=== PATIENT | male | born 1965 | race African-American/Black ===

== ENCOUNTER 2016-05-23 18:33 | Emergency (ER) | payer BC ==
[2016-05-23] MEDS ORDERED: ACETAMINOPHEN 325 MG TABLET PO ONE (21:20)
[2016-05-23] MEDS ORDERED: AMOXICILLIN TRIHYDRATE 500 MG CAPSULE PO ONE (21:20)
[2016-05-23] MEDS ORDERED: IBUPROFEN 800 MG TABLET PO PRN (21:20)
--- NOTE | 2016-05-23 21:21 | ER Document Report ---
HPI - HPI Patient complains to provider of: sore throat since Saturday Onset: Other - Saturday Onset/Duration: Gradual Pain Level: 2 Context: 51-year-old male with persistent sore throat especially on the left side since Saturday. No fever. No cough. No nausea vomiting or diarrhea. It hurts to swallow. Associated Symptoms: None Exacerbated by: Other - Swallowing Relieved by: Denies Similar symptoms previously: No Recently seen / treated by doctor: No - ROS ROS below otherwise negative: Yes Systems Reviewed and Negative: Yes All other systems reviewed and negative - DERM Skin Color: Normal Past Medical History - General Information source: Patient - Social History Smoking Status: Never Smoker Frequency of alcohol use: None Drug Abuse: None Lives with: Family Family History: Reviewed & Not Pertinent - Past Medical History Cardiac Medical History: Reports: Hx Hypercholesterolemia, Hx Hypertension Endocrine Medical History: Reports: Hx Diabetes Mellitus Type 2 Renal/ Medical History: Denies: Hx Peritoneal Dialysis Past Surgical History: Reports: Hx Orthopedic Surgery - bilat knee - Immunizations Hx Diphtheria, Pertussis, Tetanus Vaccination: Yes Vertical Provider Document - CONSTITUTIONAL Agree With Documented VS: Yes - INFECTION CONTROL TRAVEL OUTSIDE OF THE [place] IN LAST 30 DAYS: No - HEENT HEENT: Normocephalic, Pharyngeal Erythema - exudative left tonsil, uvula midline , no celulitis. negative: Conjuctival Injection - No history of arthritis - NECK Neck: Supple, Lymphadenopathy-Left - anterior - RESPIRATORY Respiratory: Breath Sounds Normal, No Respiratory Distress O2 Sat by Pulse Oximetry: 95 - CARDIOVASCULAR Cardiovascular: Regular Rate, Regular Rhythm - GI/ABDOMEN Gastrointestinal: Abdomen Soft, Abdomen Non-Tender - MUSCULOSKELETAL/EXTREMETIES Musculoskeletal/Extremeties: KIM CAGE - NEURO Level of Consciousness: Awake, Alert - DERM Integumentary: Warm, Dry, No Rash Course - Vital Signs Vital signs: Temp Pulse Resp BP Pulse Ox 99.7 F 102 H 17 147/79 H 95 05/23/16 19:06 05/23/16 19:06 05/23/16 19:06 05/23/16 19:06 05/23/16 19:06 Discharge - Discharge Clinical Impression: left tonsillitis, Sore throat Condition: Good Disposition: HOME, SELF-CARE Instructions: Sore Throat ([facility]), Tonsillitis ([facility]), Anti-Inflammatory Medication ([facility]), Amoxicillin ([facility]) Additional Instructions: to er if worse finish the antibiotics motrin for pain drink plenty of fluids Please complete the patient satisfaction survey if you get one, and return it.. If you do not receive a survey, then you can go to the [facility] website, [email or web address] and place your comments about your very good care. Thank you very much. It was a pleasure being your medical provider today. Prescriptions: Amoxicillin Trihydrate [Amoxil 500 mg Capsule] 1,000 mg PO BID #30 cap Prednisone [Deltasone 10 mg Tablet] 10 mg PO ASDIR PRN #15 tablet PRN Reason: Forms: Return to Work
[2016-05-23] MEDS ORDERED: HYDROCODONE/ACETAMINOPHEN 5-325 MG 6 TAB/DSPK PO PRN (21:23)
[2016-05-23] MEDS ORDERED: PREDNISONE 20 MG TABLET PO ONE (21:27)
[2016-05-24 03:24] VITALS: BP 121/71
== END 2016-05-23 22:07 | disposition home or self-care (01) ==
LOC: ER 18:33
DX: J03.90 Acute tonsillitis, unspecified (principal); J02.9 Acute pharyngitis, unspecified
CPT/HCPCS: 99282; J7512

== ENCOUNTER 2016-08-25 07:10 | Inpatient (IN) | payer BC ==
[2016-08-25] MEDS ORDERED: NORMAL SALINE 1000 ML 1,000 ML IV ONE ×2 (07:43→08:32)
[2016-08-25 08:03] LABS: HEMATOCRIT 36.2 % (37.9-51.0); HEMOGLOBIN 11.5 g/dL (13.5-17.0); HGB HCT DIFFERENCE -1.7; MEAN CORPUSCULAR HEMOGLOBIN 29.4 pg (27.0-33.4); MEAN CORPUSCULAR HGB CONC 31.6 g/dL (32.0-36.0); MEAN CORPUSCULAR VOLUME 93 fl (80-97); RED CELL DISTRIBUTION WIDTH 13.3 % (11.5-14.0); WHITE BLOOD COUNT 22.5 10^3/uL (4.0-10.5)
[2016-08-25 08:18] LABS: ALANINE AMINOTRANSFERASE 35 U/L (21-72); ALBUMIN 3.5 g/dL (3.5-5.0); ALKALINE PHOSPHATASE 121 U/L (38-126); ASPARTATE AMINO TRANSFERASE 15 U/L (17-59); BILIRUBIN,DIRECT 0.5 mg/dL (0.0-0.4); BILIRUBIN,TOTAL 1.2 mg/dL (0.2-1.3); BLOOD UREA NITROGEN 26 mg/dL (7-20); CHLORIDE 94 mmol/L (98-107); CREATININE RESULT 1.47 mg/dL (0.52-1.25); MAGNESIUM 2.6 mg/dL (1.6-2.3); POTASSIUM 4.6 mmol/L (3.6-5.0); TOTAL PROTEIN 7.1 g/dL (6.3-8.2)
[2016-08-25 08:25] LABS: BAND NEUTROPHILS % (MANUAL) 5 % (3-5); BASOPHILS % (MANUAL) 0 % (0-2); EOSINOPHILS % (MANUAL) 0 % (0-6); LYMPHOCYTES % (MANUAL) 7 % (13-45); TOTAL CELLS COUNTED 100
[2016-08-25 08:26] LABS: RBC MORPHOLOGY COMMENT NORMO-CYTIC/CHROMIC
[2016-08-25 08:27] LABS: CARBON DIOXIDE 11 mmol/L (22-30); GLUCOSE 482 mg/dL (75-110); SODIUM 133.4 mmol/L (137-145)
[2016-08-25 08:28] LABS: ANION GAP 28 (5-19)
[2016-08-25] MEDS ORDERED: INSULIN REG, HUMAN 100 UNIT/ML 3 ML VIAL (PYX) IV ONE (08:32)
[2016-08-25] MEDS ORDERED: PIPERACILLIN/TAZOBACTAM 3.375 GM VIAL IV ONE (08:33)
--- NOTE | 2016-08-25 08:53 | ER Document Report ---
ED General <SUDHEER BEDOLLA - Last Filed: 08/25/16 09:27> - General Mode of Arrival: Ambulatory Information source: Patient TRAVEL OUTSIDE OF THE [place] IN LAST 30 DAYS: No - HPI Onset: Other - Refer to HPI notes <MAILEWILFREDGLENIS - Last Filed: 08/25/16 09:54> - General Chief Complaint: Abdominal Pain Stated Complaint: ABDOMINAL PAIN Time Seen by Provider: 08/25/16 07:37 Notes: Patient is a 51 year old male presenting to the emergency department for abdominal pain and constipation x1 week. Patient has an open actively draining abscess to his right lower abdominal pannus. Patient has been putting hydrocortisone cream on this area with gauze covering. Patient states the abscess has been present for about 1 week and is where most of his pain is coming from. Patient states he has an appointment with his PCP, [facility] in [place], on Saturday but he could not wait because of his pain. Patient has type II diabetes mellitus and takes 500 mg metformin x2 per day. Patinet states he does not check his blood glucose levels. Patient also has hypertension for which he takes 20 mg Lisinopril and 25 mg Hydrochlorothiazide and hypercholesterolemia and patient takes 10 mg Atorvastatin for this. Patient also takes aleve for his pain. Patient has had some increased thirst and has not been eating much food lately. Patient's blood glucose level was 449 upon arrival to the ED. Patient has no known drug allergies. (GLENIS GR) - Related Data Allergies/Adverse Reactions: No Known Allergies Allergy (Verified 08/25/16 07:17) Past Medical History - General Information source: Patient - Social History Smoking Status: Never Smoker Cigarette use (# per day): No Chew tobacco use (# tins/day): No Frequency of alcohol use: Rare Drug Abuse: None Family History: None Patient has suicidal ideation: No Patient has homicidal ideation: No - Past Medical History Cardiac Medical History: Reports: Hx Hypercholesterolemia, Hx Hypertension Endocrine Medical History: Reports: Hx Diabetes Mellitus Type 2 - 500 mg of metformin Past Surgical History: Reports: Hx Orthopedic Surgery - bilat knee - Immunizations Hx Diphtheria, Pertussis, Tetanus Vaccination: Yes <GLENIS GR - Last Filed: 08/25/16 09:54> Review of Systems - Review of Systems Constitutional: No symptoms reported EENT: No symptoms reported Cardiovascular: No symptoms reported Respiratory: No symptoms reported Gastrointestinal: See HPI, Abdominal pain, Constipation, Poor appetite, Last bowel movement - over 1 week ago, Other - increased thirst. denies: Poor fluid intake Genitourinary: No symptoms reported Male Genitourinary: No symptoms reported Musculoskeletal: No symptoms reported Skin: No symptoms reported Hematologic/Lymphatic: No symptoms reported Neurological/Psychological: No symptoms reported -: Yes All other systems reviewed and negative <GLENIS GR - Last Filed: 08/25/16 09:54> Physical Exam <GRAEMESUDHEER - Last Filed: 08/25/16 09:27> - Vital signs Interpretation: Hypertensive, Tachycardic <GLENIS GR - Last Filed: 08/25/16 09:54> - Vital signs Vitals: Temp Pulse Resp BP Pulse Ox 98.5 F 129 H 22 H 142/84 H 98 08/25/16 07:16 08/25/16 07:16 08/25/16 07:16 08/25/16 07:16 08/25/16 07:16 - Notes Notes: GENERAL: Alert, interacts well. No acute distress. HEAD: Normocephalic, atraumatic. EYES: Appear normal. Pupils equal, round, and reactive to light. ENT: Dry mucus membranes, tongue midline. NECK: Full range of motion. Supple. Trachea midline. LUNGS: Clear to auscultation bilaterally, no wheezes, rales, or rhonchi. No respiratory distress. HEART: Tachycardia. Regular rhythm. No murmurs, gallops, or rubs. ABDOMEN: Morbidly obese. There is an indurated mass in the RLQ abdominal pannus , it has a round 3 cm defect/sore to the skin of this region on the right side which is actively draining. Non-distended. Normal bowel sounds. EXTREMITIES: Moves all 4 extremities spontaneously. Normal strength. No edema. NEUROLOGICAL: Alert and oriented x3. Normal speech. No focal neurological deficits. GSC 15. PSYCH: Normal affect, normal mood. SKIN: Warm, dry, normal turgor. No rashes or lesions noted. (GLENIS GR) Course - Laboratory Result Diagrams: 08/25/16 07:49 08/25/16 07:49 - EKG Interpretation by Dc EKG shows normal: Sinus rhythm, [place], QRS Complexes. abnormal: Intervals - Borderline prolonged QT interval, ST-T Waves - Borderline T abnormalities Rate: Tachycardia - 109 Rhythm: PVC's When compared to previous EKG there are: Previous EKG unavailable - Consults [place] Time consulted: 09:05 Consulted provider: will come to ER <SUDHEER BEDOLLA - Last Filed: 08/25/16 09:27> - Laboratory Result Diagrams: 08/25/16 07:49 08/25/16 07:49 <GLENIS GR - Last Filed: 08/25/16 09:54> - Vital Signs Vital signs: Temp Pulse Resp BP Pulse Ox 98.5 F 129 H 11 L 112/62 98 08/25/16 07:16 08/25/16 07:16 08/25/16 09:01 08/25/16 09:01 08/25/16 09:01 - Laboratory Laboratory results interpreted by me: 08/25/16 08/25/16 08/25/16 07:49 07:49 07:49 WBC 22.5 H RBC 3.90 L Hgb 11.5 L Hct 36.2 L MCHC 31.6 L Lymphocytes % (Manual) 7 L Metamyelocytes % 1 H Abs Neuts (Manual) 18.5 H Abs Monocytes (Manual) 2.5 H Sodium 133.4 L Chloride 94 L Carbon Dioxide 11 L Anion Gap 28 H BUN 26 H Creatinine 1.47 H Est GFR (Non-Af Amer) 51 L Glucose 482 H* POC Glucose Hemoglobin A1c % > 14.0 H Magnesium 2.6 H Direct Bilirubin 0.5 H AST 15 L 08/25/16 08:59 WBC RBC Hgb Hct MCHC Lymphocytes % (Manual) Metamyelocytes % Abs Neuts (Manual) Abs Monocytes (Manual) Sodium Chloride Carbon Dioxide Anion Gap BUN Creatinine Est GFR (Non-Af Amer) Glucose POC Glucose 377 H Hemoglobin A1c % Magnesium Direct Bilirubin AST Critical Care Note - Critical Care Note Total time excluding time spent on procedures (mins): 30 <SUDHEER BEDOLLA - Last Filed: 08/25/16 09:27> Discharge - Discharge Admitting Provider: Hospitalist Unit Admitted: IMCU <SUDHEER BEDOLLA - Last Filed: 08/25/16 09:27> <GLENIS GR - Last Filed: 08/25/16 09:54> - Discharge Clinical Impression: Poorly controlled diabetes mellitus, Abdominal wall abscess Diabetic ketoacidosis Qualifiers: Diabetes mellitus type: type 2 Diabetes mellitus complication detail: without coma Qualified Code(s): E13.10 - Other specified diabetes mellitus with ketoacidosis without coma Hyperglycemia due to type 2 diabetes mellitus Qualifiers: Diabetes mellitus intermission coordinator insulin use: without longterm use Qualified Code(s ): E11.65 - Type 2 diabetes mellitus with hyperglycemia Leukocytosis Qualifiers: Leukocytosis type: bandemia Qualified Code(s): D72.825 - Bandemia Scribe Attestation: 08/25/16 09:10 I personally performed the services described in the documentation, reviewed and edited the documentation which was dictated to the scribe in my presence, and it accurately records my words and actions. (SUDHEER BEDOLLA) Scribe Documentation - Scribe Written by Scribe:: Rubens Tay, 08/25/2016 9:15 acting as scribe for :: Graeme <GLENIS GR - Last Filed: 08/25/16 09:54>
[2016-08-25] MEDS ORDERED: NORMAL SALINE 1000 ML 1,000 ML IV PRN ×3 (09:16→20:42)
[2016-08-25] MEDS ORDERED: DEXTROSE 50%-WATER 25 GM/50 ML DISP.SYRIN IV PRN ×2 (09:19)
[2016-08-25] MEDS ORDERED: DEXTROSE 40% GEL 15 GM TUBE PO PRN ×2 (09:19)
[2016-08-25] MEDS ORDERED: GLUCAGON,HUMAN RECOMB 1 MG INJ IM PRN (09:19)
[2016-08-25] MEDS: ENOXAPARIN SODIUM INJ 40 MG/0.4 ML DISP.SYRIN SUBCUT SCH (09:57)
--- NOTE | 2016-08-25 10:14 | EKG REPORT ---
SEVERITY:- ABNORMAL ECG - SINUS TACHYCARDIA VENTRICULAR PREMATURE COMPLEX BORDERLINE T WAVE ABNORMALITIES BORDERLINE PROLONGED QT INTERVAL : Confirmed by: Dominik Felipe MD 25-Aug-2016 10:13:51
[2016-08-25 11:36] LABS: APPEARANCE,URINE SLIGHTLY-CLOUDY; BILIRUBIN,URINE NEGATIVE (NEGATIVE); GLUCOSE, URINE >=500 mg/dL (NEGATIVE); KETONES,URINE 80 mg/dL (NEGATIVE); LEUKOCYTE ESTERASE,URINE MODERATE (NEGATIVE); NITRITE,URINE NEGATIVE (NEGATIVE); PROTEIN,URINE NEGATIVE (NEGATIVE); URINE SPECIFIC GRAVITY 1.025; UROBILINOGEN,URINE NEGATIVE mg/dL (<2.0)
[2016-08-25] MEDS ORDERED: NORMAL SALINE 100 ML with INSULIN REGULAR, HUMAN 100 UNIT IV PRN ×2 (12:24)
[2016-08-25] MEDS ORDERED: MORPHINE SULFATE 10 MG/ML INJ IV ONE (13:00)
[2016-08-25 13:24] LABS: BLOOD UREA NITROGEN 23 mg/dL (7-20); CALCIUM 8.8 mg/dL (8.4-10.2); CARBON DIOXIDE 18 mmol/L (22-30); CHLORIDE 98 mmol/L (98-107); CREATININE RESULT 1.29 mg/dL (0.52-1.25); GLUCOSE 308 mg/dL (75-110); POTASSIUM 4.8 mmol/L (3.6-5.0)
[2016-08-25 13:31] LABS: SODIUM 135.7 mmol/L (137-145)
[2016-08-25 13:32] LABS: ANION GAP 20 (5-19)
[2016-08-25] MEDS ORDERED: DEXTROSE 5%-NORMAL SALINE 1,000 ML IV PRN ×3 (14:42→16:41)
[2016-08-25 16:31] LABS: ANION GAP 15 (5-19); BLOOD UREA NITROGEN 21 mg/dL (7-20); CALCIUM 8.5 mg/dL (8.4-10.2); CARBON DIOXIDE 23 mmol/L (22-30); CHLORIDE 101 mmol/L (98-107); CREATININE RESULT 1.18 mg/dL (0.52-1.25); GLUCOSE 225 mg/dL (75-110); POTASSIUM 4.5 mmol/L (3.6-5.0); SODIUM 139.4 mmol/L (137-145)
[2016-08-25] MEDS: MORPHINE SULFATE 10 MG/ML INJ IV PRN ×2 (16:33→23:33)
--- NOTE | 2016-08-25 16:33 | HISTORY AND PHYSICAL E ---
History and Physical NAME: XUAN BYERS : 1965 AGE: 51Y ADMITTED: 08/25/2016 ROOM: 320 CODE STATUS: FULL CODE. PRIMARY CARE PROVIDER: [facility]. CHIEF COMPLAINT: Abdominal pain. HISTORY OF PRESENT ILLNESS: The patient is a 51-year-old male with a past medical history of diabetes mellitus type 2. The patient presents to the emergency department with a chief complaint of abdominal pain and constipation x1 week. The patient has an actively draining abscess to the right lower abdominal pannus. The patient had been putting hydrocortisone cream on the area and covering it with gauze. The patient states that the abscess has been present for about a week and it is where most of his pain is coming from. The patient had an appointment with his primary care provider at [facility] in [place] on Saturday, but he could not wait because of the pain. The patient takes metformin 500 mg x2 daily. The patient admits that he should be on insulin, but does not take this. The patient states that he does not check his blood sugars either. The patient thinks that his last A1c was approximately a year ago. The patient has hypertension and states that he is compliant with his medications. At the time of presentation to the emergency department, the patient was found to have a glucose of almost 500 with potassium of 4.6, sodium 133. The patient did have a gap of 28 and A1c of greater than 14. Given these findings, the patient was referred to the hospitalists for admission and management. PAST MEDICAL HISTORY: Remarkable for: 1. Diabetes mellitus type 2. 2. Morbid obesity with BMI of 46. 3. Hypertension. 4. Hyperlipidemia. PAST SURGICAL HISTORY: Includes bilateral knee surgery. ALLERGIES: No known drug allergies. HOME MEDICATIONS: Metformin 500 mg p.o. b.i.d. SOCIAL HISTORY: The patient currently resides at home. He denies any history of tobacco use. No history of alcohol abuse or illicit drug use. 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 The patient's surrogate decision maker is his who can be reached at [phone]. FAMILY MEDICAL HISTORY: The patient's father is . He had an NM as well a diabetes. The patient's mother is alive; however, she suffers with dementia. The patient has 8 siblings, all of them have multiple medical problems and he is unable to recall. The patient has a daughter who is healthy. REVIEW OF SYSTEMS: CONSTITUTIONAL: The patient denies any dizziness, weakness, lysis of adhesions. Positive for sensations of fevers, chills. INTEGUMENTARY: The patient denies any diaphoresis, rashes, bruising, itching. HEENT: Denies any visual changes, nasal drainage, sore throat, headache. CARDIOVASCULAR: Denies any chest pain, edema or heart palpitations. RESPIRATORY: Denies any shortness of breath, cough, sputum production or hemoptysis. GASTROINTESTINAL: Denies any nausea, vomiting, diarrhea, hematemesis, melena, hematochezia. Positive for constipation and abdominal wall pain. GENITOURINARY: Denies any hematuria, pyuria or dysuria. MUSCULOSKELETAL: Denies any acute on chronic joint pains. NEUROLOGICAL: Denies any seizures, tremors, loss of consciousness. HEMATOLOGIC: Denies any joanna bleeding, easy bruising. ENDOCRINE: Denies any recent weight changes. The patient does not check his glucose. PSYCHIATRIC: Denies suicidal or homicidal ideations. The rest of the review of the other organ systems is negative. PHYSICAL EXAMINATION: GENERAL: On examination, the patient is a well developed, morbidly obese, 51-year-old male who is awake, alert and oriented to person, place, time and situation. He is verbal, conversational, and does not appear to be in acute distress. VITAL SIGNS: As follows: Temperature 99.5, pulse 111, respirations 12, blood pressure 132/70, oxygen saturation 98% on room air. SKIN: Warm and dry. No rash. Not diaphoretic. HEENT: Pupils equal, round and reactive to light and accommodation. Conjunctivae pink. Sclerae are anicteric. No mouth lesions. Tongue is midline. NECK: Supple. No significant elevated. No palpable lymphadenopathy or thyromegaly. CARDIOVASCULAR SYSTEM: Heart is regular. There is no murmur or rub. CHEST: Clear, symmetrical and unlabored. ABDOMEN: Soft, nontender, nondistended. Left lower quadrant abscess is draining foul purulent drainage. No organomegaly. BACK: No CVA tenderness, sacral edema. EXTREMITIES: No clubbing, cyanosis, or edema or peripheral signs of embolization. Pedal pulses +1 noted bilaterally. PSYCHIATRIC: Appropriate affect, pleasant mood. DIAGNOSTICS: 1. Laboratory values are as follows: a. Hematology obtained on 08/25/2016: WBCs 22.5, hemoglobin 11.5, hematocrit 36.2, platelet count 301,000. b. Chemistry obtained on 08/25/2016: Sodium 133, potassium 4.6, chloride 94, carbon dioxide 11, BUN 26, creatinine 1.47, glucose 582. A1c is 14. Calcium 9.0, magnesium 2.6, bilirubin 1.2, direct bilirubin 0.5, AST 15, ALT 35, alkaline phosphatase 121, total protein , albumin 3.5. c. Urinalysis obtained on 08/25/2016: Color is yellow, appearance slightly cloudy, pH 5.2, specific gravity of 1.025, protein negative, glucose greater than 500, ketones 80, occult blood small, nitrite negative, bilirubin negative, urobilinogen negative, leukocyte esterase moderate, WBCs 21, RBCs 10, epithelial squamous cells less than 1, mucus rare, ascorbic acid is negative. 2. Microbiology: a. Blood cultures obtained on 08/25/2016 are pending. b. Urine culture obtained on 08/25/2016 pending. 3. EKG obtained on 08/25/2016 reveals sinus tachycardia with PVC. IMPRESSION AND PLAN: 1. Hyperosmolar hyperglycemic state. The patient has received 2 liters of saline in the emergency department. Will bolus another liter and continue to aggressively hydrate. Will repeat chemistries at noon and according to findings, will continue from there. Will start the patient on an insulin drip and follow. 2. Abdominal wall abscess. Will cover with Zosyn for now and await surgical input. 3. Morbid obesity. Will encourage weight reduction. 4. Hypertension. The patient does give a history of hypertension; however, he is not on any chronic medications. Blood pressures are in acceptable range at this time. Will just continue to monitor these for now. 5. Sepsis present on admission secondary to the above. The patient's white count as 22,0000, the patient is tachycardic with low-grade temperature. Again have added antibiotic coverage. Will monitor closely. 6. Uncontrolled diabetes mellitus type 2. is greater than 400. Will proceed with education. The patient will continue metformin after discharge, but will need to be discharged on insulin. 7. DVT prophylaxis. Will add subcutaneous Lovenox. DISPOSITION: The patient is a FULL CODE. Pending the patient's symptomatology and diagnostic findings, will re-evaluate as needed. The patient will be admitted to inpatient IMCU as the patient's suspected length of stay will surpass 2 midnights. TIME SPENT: Time spent on this admission including assessment, plan, physical examination, patient education and family meeting was 40 minutes. DICTATING PHYSICIAN: FIDE MORALES NP [id number] PHY#: [id number] ID: [id number] JOB#: [id number] ACCT: [id number] cc:VAMSHI CORONEL > LAUREN
[2016-08-25] MEDS ORDERED: INSULIN GLARGINE,HUM.REC.ANLOG 1,000 UNIT/10 ML UNIT SUBCUT ONE ×2 (16:38→21:50)
[2016-08-25] MEDS ORDERED: VANCOMYCIN HCL INJ 1000 MG VIAL IV PRN (16:49)
[2016-08-25] MEDS ORDERED: VANCOMYCIN HCL 500 MG in DEXTROSE 5%-WATER 100 ML IV ONE (17:00)
--- NOTE | 2016-08-25 17:29 | CONSULTATION REPORT E ---
Consultation Report NAME: XUAN BYERS : 1965 AGE: 51Y DATE: 08/25/2016 320 A TO: PAZ PENALOZA M.D. FROM: VAMSHI CORONEL Requesting Physician REASON FOR CONSULTATION: Patient with abdominal wall pain with ulceration along the right lower abdominal wall right at the pannus area. HISTORY OF PRESENT ILLNESS: This is a 51-year-old male with a history of type 2 diabetes on metformin 500 mg twice a day; hypertension for which he takes lisinopril 20 mg a day and 25 mg of hydrochlorothiazide; hypercholesterolemia and takes 10 mg of atorvastatin daily. Noted to have abdominal pains and constipation for the past week. This area on the right abdominal wall then started draining purulent material and the patient has been putting hydrocortisone cream on this area with gauze covering. He was then admitted where his blood sugar was noted to be 449. The patient also has been increasingly thirsty and eat much food recently. ALLERGIES: No known. PAST MEDICAL HISTORY: As in HPI, positive for: 1. Diabetes type 2 on 500 mg metformin twice a day. 2. History of hypertension and takes lisinopril. 3. Hyperlipidemia, he takes atorvastatin. 4. History of knee surgeries in the past. SOCIAL HISTORY: Never smoked. Rare use of alcohol. Denies drug abuse. REVIEW OF SYSTEMS: GASTROINTESTINAL: As per HPI. CONSTITUTIONAL: No fever or chills. ENT: No symptoms reported. CARDIOVASCULAR: No chest pains. RESPIRATORY: No shortness of breath. GENITOURINARY: No dysuria. MUSCULOSKELETAL: No symptoms reported. SKIN: Pain on the abdominal wall on the right side. HEMATOLOGIC: No symptoms reported. NEUROLOGICAL: No symptoms reported. All other systems reviewed and are negative. FAMILY HISTORY: Strong for diabetes in that both parents are diabetic. PHYSICAL EXAMINATION: VITAL SIGNS: Height about 5 feet 9 inches, and weighs over 380 pounds. GENERAL: The patient is awake, alert and oriented, complaining of right abdominal wall pains. HEENT/NECK: Neck is supple. No thyromegaly. LUNGS: Clear. HEART: Tachycardic. ABDOMEN: Morbidly obese. There is a 4 x 3-cm quite superficial ulceration on the abdominal wall pannus on the right lower abdominal area. There is also an induration that is with reddish skin discoloration just lateral to the ulcer and very tender. EXTREMITIES: No edema. IMPRESSION: 1. Ulcer of the right abdominal wall. 2. Cellulitis with possible starting abscess. PLAN: 1. Sharp debridement of the ulcer at bedside was done. Some spent for C and S was sent. 2. CT scan of the abdominal wall to check on whether a collection that needed to be evacuated today or tomorrow. 3. Start him on IV vancomycin 2 g for suspicion for MRSA and the patient has been ordered ampicillin and I would think that vancomycin would be more appropriate antibiotic for this patient at this time. 4. Nystatin powder was ordered around the area of the pannus to prevent ulceration and then a wet-to-dry dressings on the ulcer site twice a day was ordered. 5. Will keep him n.p.o. just in case he needs to be taken to the OR tonight. ADDENDUM: His white count is up to 22,500, hemoglobin 11.5. His glucose at 1200 hours was 308 from 482 on admission early this morning at 0400 hours. We also ordered lactic acid/sepsis protocol workup. Will continue him on D5 normal saline at 200 mL/h and will increase the fluids if the lactic acid is elevated. DICTATING PHYSICIAN: PAZ PENALOZA M.D. [id number] PHY#: [id number] ID: [id number] JOB#: [id number] ACCT: [id number] cc:PAZ PENALOZA M.D. >
--- NOTE | 2016-08-25 17:38 | OPERATIVE REPORT E ---
Operative Report NAME: XUAN BYERS : 1965 AGE: 51Y DATE OF SURGERY: 08/25/2016 ROOM: 320 PREOPERATIVE DIAGNOSIS: ABOUT 2 X 4-CM ULCERATION ALONG THE RIGHT LOWER ABDOMINAL WALL PANNUS WITH SOME NECROTIC TISSUE. POSTOPERATIVE DIAGNOSIS: ABOUT 2 X 4-CM ULCERATION ALONG THE RIGHT LOWER ABDOMINAL WALL PANNUS WITH SOME NECROTIC TISSUE. OPERATION: Sharp debridement of ulceration along the right lower abdominal wall pannus with necrotic tissue. SURGEON: PAZ PENALOZA M.D. INDICATION: This is a 51-year-old male admitted for pains along the right abdominal wall where the ulcer was noted about a week ago. This was also noted to have some induration lateral to it with some redness and severe tenderness. DESCRIPTION OF PROCEDURE: The necrotic tissue on the ulcer was debrided sharply. Specimens were sent for C and S. The wound was subsequently cleansed with saline and wound irrigation. A wet-to-dry saline dressing was placed. The patient tolerated the procedure well. Incidentally, the patient is going to have a CAT scan of the abdominal wall to see if there is any collection that may need to be drained as soon as possible. The patient is admitted for sepsis with DKA. DICTATING PHYSICIAN: PAZ PENALOZA M.D. [id number] PHY#: [id number] ID: [id number] JOB#: [id number] ACCT: [id number] cc:PAZ PENALOZA M.D. >
--- NOTE | 2016-08-25 17:42 | RADIOLOGY REPORT (SQ) ---
EXAM DESCRIPTION: CT ABD/PELVIS NO ORAL OR IV COMPLETED DATE/TIME: 08/25/2016 5:23 pm REASON FOR STUDY: RULE OUT ABSCESS COMPARISON: None. TECHNIQUE: CT scan of the abdomen and pelvis performed without intravenous or oral contrast. Images reviewed with lung, soft tissue, and bone windows. Reconstructed coronal and sagittal MPR images revi ewed. All images stored on PACS. All CT scanners at this facility use dose modulation, iterative reconstruction, and/or weight based d osing when appropriate to reduce radiation dose to as low as reasonably achievable (ALARA). [facility]: Dose Right [facility]: CareDose [facility]: Dose Right [facility]: Teradose 4D [facility]: Smart [employer] RADIATION DOSE: Up-to-date CT equipment and radiation dose reduction techniques were employed. CTDIv ol: 30.0 mGy. DLP: 1834 mGy-cm.mGy. LIMITATIONS: None. FINDINGS: LOWER CHEST: No significant findings. No nodules or infiltrates. NON-CONTRASTED LIVER, SPLEEN, ADRENALS: Evaluation limited by lack of IV contrast. No identified sign ificant masses. PANCREAS: No masses. No peripancreatic inflammatory changes. GALLBLADDER: No identified stones by CT criteria. No inflammatory changes to suggest cholecystitis. RIGHT KIDNEY AND URETER: No suspicious masses. Assessment limited by lack of IV contrast. No signif icant calcifications. No hydronephrosis or hydroureter. LEFT KIDNEY AND URETER: No suspicious masses. Assessment limited by lack of IV contrast. No signifi cant calcifications. No hydronephrosis or hydroureter. AORTA AND RETROPERITONEUM: No aneurysm. No retroperitoneal masses or adenopathy. BOWEL AND PERITONEAL CAVITY: No obvious masses or inflammatory changes. No free fluid. APPENDIX: Normal. PELVIS, BLADDER, AND ABDOMINAL WALL:No abnormal masses. No free fluid. Bladder normal. BONES: No significant findings. OTHER: No other significant finding. IMPRESSION: NO SIGNIFICANT OR ACUTE PROCESS IN THE ABDOMEN OR PELVIS. TECHNICAL DOCUMENTATION: JOB ID: [id number] Quality ID # [id number]: Final reports with documentation of one or more dose reduction techniques (e.g., Au tomated exposure control, adjustment of the mA and/or kV according to patient size, use of iterative reconstruction technique) 2010 [employer]- All Rights Reserved
[2016-08-25] MEDS ORDERED: VANCOMYCIN HCL INJ 1000 MG VIAL ONE (18:12)
[2016-08-25] MEDS: AMPICILLIN SODIUM/SULBACTAM NA 3 GM in NORMAL SALINE 100 ML IV SCH ×2 (19:02→23:32)
[2016-08-25] MEDS: NYSTATIN TOPICAL POWDER 15 GM TP SCH (19:03)
[2016-08-25] MEDS ORDERED: VANCOMYCIN HCL 2,000 MG in NORMAL SALINE 500 ML IV ONE (20:15)
[2016-08-25] MEDS ORDERED: VANCOMYCIN HCL 2,000 MG in DEXTROSE 5%-WATER 500 ML IV ONE (20:15)
[2016-08-25] MEDS: INSULIN LISPRO 100 UNIT/ML 3 ML VIAL SUBCUT PRN (21:58)
[2016-08-26] MEDS: AMPICILLIN SODIUM/SULBACTAM NA 3 GM in NORMAL SALINE 100 ML IV SCH ×3 (05:21→17:08)
[2016-08-26 05:28] LABS: ALANINE AMINOTRANSFERASE 28 U/L (21-72); ALBUMIN 2.7 g/dL (3.5-5.0); ALKALINE PHOSPHATASE 87 U/L (38-126); ANION GAP 18 (5-19); ASPARTATE AMINO TRANSFERASE 13 U/L (17-59); BILIRUBIN,DIRECT 0.6 mg/dL (0.0-0.4); BILIRUBIN,TOTAL 1.4 mg/dL (0.2-1.3); BLOOD UREA NITROGEN 18 mg/dL (7-20); CALCIUM 8.4 mg/dL (8.4-10.2); CARBON DIOXIDE 15 mmol/L (22-30); CHLORIDE 105 mmol/L (98-107); CREATININE RESULT 1.05 mg/dL (0.52-1.25); GLUCOSE 274 mg/dL (75-110); MAGNESIUM 2.5 mg/dL (1.6-2.3); POTASSIUM 4.7 mmol/L (3.6-5.0); SODIUM 137.8 mmol/L (137-145); TOTAL PROTEIN 5.9 g/dL (6.3-8.2)
[2016-08-26 05:46] LABS: HEMATOCRIT 31.3 % (37.9-51.0); HEMOGLOBIN 9.8 g/dL (13.5-17.0); HGB HCT DIFFERENCE -1.9; MEAN CORPUSCULAR HEMOGLOBIN 29.3 pg (27.0-33.4); MEAN CORPUSCULAR HGB CONC 31.5 g/dL (32.0-36.0); MEAN CORPUSCULAR VOLUME 93 fl (80-97); RED BLOOD COUNT 3.36 10^6/uL (4.35-5.55); RED CELL DISTRIBUTION WIDTH 13.4 % (11.5-14.0)
[2016-08-26] MEDS: ENOXAPARIN SODIUM INJ 40 MG/0.4 ML DISP.SYRIN SUBCUT SCH (09:50)
[2016-08-26] MEDS: NYSTATIN TOPICAL POWDER 15 GM TP SCH ×2 (10:58→17:12)
[2016-08-26] MEDS: INSULIN LISPRO 100 UNIT/ML 3 ML VIAL SUBCUT PRN ×4 (11:02→22:09)
[2016-08-26] MEDS: MORPHINE SULFATE 10 MG/ML INJ IV PRN (11:25)
--- NOTE | 2016-08-26 14:09 | RADIOLOGY REPORT (SQ) ---
EXAM DESCRIPTION: U/S ABDOMEN LIMITED W/O DOP COMPLETED DATE/TIME: 08/26/2016 1:58 pm REASON FOR STUDY: R/O abscess rt lower abdominal wall COMPARISON: None. TECHNIQUE: Dynamic and static grayscale images acquired of the localized site of clinical concern an d recorded on PACS. Additional selected color Doppler and spectral images recorded. SITE OF CONCERN: Abdominal wall right lower quadrant. LIMITATIONS: None. FINDINGS: SKIN AND SUBCUTANEOUS TISSUES: No masses. No fluid collections. No edema. No foreign kendrick s. DEEP SOFT TISSUES/MUSCLES: No masses. No fluid collections. No edema. OTHER: No other significant finding. IMPRESSION: NO SOFT TISSUE MASS, FLUID COLLECTION, OR FOREIGN BODY. TECHNICAL DOCUMENTATION: JOB ID: [id number] [employer]- All Rights Reserved
[2016-08-26] MEDS ORDERED: HYDROCODONE/ACETAMINOPHEN 7.5-325 MG TABLET PO PRN (15:11)
[2016-08-26] MEDS ORDERED: (PENDING PHARMACY ID) (Metformin Hcl [Metformin Hcl Er] 500 MG) PO SCH (16:00)
--- NOTE | 2016-08-26 17:04 | PROGRESS NOTE E ---
Progress Note NAME: XUAN BYERS : 1965 AGE: 51Y DATE: 08/26/2016 ROOM: 320 SUBJECTIVE: He had a CAT scan of the abdominal wall yesterday which showed no evidence of collection in the abdominal wall. OBJECTIVE: VITAL SIGNS: Today's temperature is 99.5 with a heart rate of 110 per minute. ABDOMEN: He has still has some pain along the right abdominal wall, but not as bad as yesterday. It also appears to be relatively clean, and a wet-to-dry dressing has been applied. DIAGNOSTIC DATA: His white count slightly decreased at 20,000 with a hemoglobin of 9.8. His glucose has come down to about 274, and his electrolytes are normal. BUN and creatinine are normal. PLAN: I ordered another ultrasound of the abdominal wall just to make sure that he is not developing any small abscess. He needs to be continued on IV antibiotics and gentle hydration. DICTATING PHYSICIAN: PAZ PENALOZA M.D. [id number] PHY#: [id number] ID: [id number] JOB#: [id number] ACCT: [id number] cc:PAZ PENALOZA M.D. >
--- NOTE | 2016-08-26 17:14 | PROGRESS NOTE E ---
Progress Note NAME: XUAN BYERS : 1965 AGE: 51Y DATE: 08/26/2016 ROOM: 320 SUBJECTIVE: The patient is lying in bed. The family is present at bedside active in the patient's care. The patient states that he does feel better today than he did yesterday, he is just rather sleepy. The patient denies any nausea, vomiting, diarrhea. No shortness of breath, dizziness, chest pain. No fevers, chills. The patient has been afebrile. His blood pressure has been in a good range, and the patient does not voice any other concerns at this time. REVIEW OF SYSTEMS: The rest of the review of systems is negative. MEDICATIONS: Medications have been reviewed. OBJECTIVE: GENERAL: The patient is a 51-year-old -Turkish male who is awake, alert and oriented to person, place, time, and situation. He is verbal, conversational, does not appear to be in any acute distress. VITAL SIGNS: As follows: Temperature is 99.5, pulse 100, respirations 18, blood pressure is 133/65 with oxygen saturation 97% on room air. SKIN: Warm and dry. No rash. Not diaphoretic. HEENT: Pupils equal, round, reactive to light and accommodation. Conjunctiva is pink. NECK: No JVP. CARDIOVASCULAR SYSTEM: Heart is regular, a little tachycardic. There is no murmur or rub. CHEST: Clear, symmetrical, unlabored. ABDOMEN: Soft, nontender, nondistended. Dressing is dry and intact. BACK: No CVA tenderness, sacral edema. EXTREMITIES: No clubbing, cyanosis, edema. PSYCHIATRIC: Appropriate affect. Pleasant mood. DIAGNOSTICS: Lab values are as follows: Hematology obtained on 08/26/2016; WBCs are 20,000, hemoglobin is 9.8, hematocrit is 31.3, platelet count is 262,000. Chemistry obtained on 08/26/2016: Sodium is 137, potassium 4.7, chloride is 105, carbon dioxide 15, BUN 18, creatinine is 1.05, glucose 274, calcium is 8.4, magnesium is 2.5, AST 13, ALT is 28, alkaline phosphatase 87, total protein 5.9, albumin 2.7. Microbiology: Blood cultures obtained on 08/25/2016 reveal no growth. Wound culture obtained on 08/25/2016 reveals group-B Streptococcus. IMPRESSION AND PLAN: 1. HYPEROSMOLAR HYPERGLYCEMIC STATE, OVERALL MUCH IMPROVED. Will actually increase basal dosed of insulin. Will have diabetes teaching and will follow. 2. ABDOMINAL WALL CELLULITIS OF GROUP-B STREP. Will continue the current coverage for now. The patient is to have a wound VAC placed. 3. MORBID OBESITY. Encouraged weight reduction. 4. HYPERTENSION. It appears that the patient's blood pressures have remained relatively stable. Will defer blood pressure medications for now and monitor. 5. SEPSIS PRESENT ON ADMISSION SECONDARY TO THE ABOVE. The patient's white count trended down ever so slightly. Will continue antibiotic coverage and follow. 6. UNCONTROLLED DIABETES MELLITUS TYPE 2. Once again, the patient needs a significant amount of education. 7. DVT PROPHYLAXIS. Will continue subcutaneous Lovenox. DISPOSITION: The patient is a FULL CODE. Pending patient's symptomatology and diagnostic findings, will re-evaluated in the a.m. The patient can be downgraded to a medical bed. Time spent on this followup including assessment, plan, physical examination, patient education, and family meeting is 20 minutes. DICTATING PHYSICIAN: FIDE MORALES NP [id number] PHY#: [id number] ID: [id number] JOB#: [id number] ACCT: [id number] cc:FIDE MORALES NP >
--- NOTE | 2016-08-26 17:55 | PROGRESS NOTE E ---
Progress Note NAME: XUAN BYERS : 1965 AGE: 51Y DATE: 08/26/2016 ROOM: 320 SUBJECTIVE: He just had an ultrasound of the right lower abdominal wall, and it was negative for any collection. The ulcer appears to be getting beer coil cleaner with no evidence of any necrotic tissue. He does have still induration on the lateral aspect of the ulcer, though it is a lot less tender than compared to yesterday. Because of the swelling and inflammation, I ordered an ultrasound just to make sure there is no collection that may need to be drained. The ultrasound did not show any collection, and therefore this is all likely cellulitis reaction. He needs to be continued on IV antibiotics and awaiting culture from the wound that we sent yesterday. His blood sugar also came down to 274 this morning, and his white count is still up to 20,000, a little bit less than yesterday. PLAN: Anyway, continue with wet-to-dry dressing over the ulcer site. DICTATING PHYSICIAN: PAZ PENALOZA M.D. [id number] PHY#: [id number] ID: [id number] JOB#: [id number] ACCT: [id number] cc:PAZ PENALOZA M.D. >
[2016-08-26] MEDS ORDERED: INSULIN GLARGINE,HUM.REC.ANLOG 1,000 UNIT/10 ML UNIT SUBCUT SCH (22:00)
[2016-08-27] MEDS: AMPICILLIN SODIUM/SULBACTAM NA 3 GM in NORMAL SALINE 100 ML IV SCH ×2 (00:40→05:38)
[2016-08-27 05:35] LABS: HEMOGLOBIN 9.2 g/dL (13.5-17.0); HGB HCT DIFFERENCE -1.4; MEAN CORPUSCULAR HEMOGLOBIN 29.4 pg (27.0-33.4); MEAN CORPUSCULAR HGB CONC 31.7 g/dL (32.0-36.0); MEAN CORPUSCULAR VOLUME 93 fl (80-97); RED BLOOD COUNT 3.12 10^6/uL (4.35-5.55); RED CELL DISTRIBUTION WIDTH 13.5 % (11.5-14.0); WHITE BLOOD COUNT 22.7 10^3/uL (4.0-10.5)
[2016-08-27 05:38] LABS: ANION GAP 16 (5-19); BLOOD UREA NITROGEN 18 mg/dL (7-20); CALCIUM 8.8 mg/dL (8.4-10.2); CARBON DIOXIDE 17 mmol/L (22-30); CHLORIDE 105 mmol/L (98-107); CREATININE RESULT 0.91 mg/dL (0.52-1.25); GLUCOSE 234 mg/dL (75-110); MAGNESIUM 2.4 mg/dL (1.6-2.3); POTASSIUM 4.6 mmol/L (3.6-5.0)
[2016-08-27] MEDS: MORPHINE SULFATE 10 MG/ML INJ IV PRN ×2 (08:52→15:05)
[2016-08-27] MEDS: ENOXAPARIN SODIUM INJ 40 MG/0.4 ML DISP.SYRIN SUBCUT SCH (09:20)
[2016-08-27] MEDS: INSULIN LISPRO 100 UNIT/ML 3 ML VIAL SUBCUT PRN ×3 (09:20→22:18)
[2016-08-27] MEDS: NYSTATIN TOPICAL POWDER 15 GM TP SCH ×2 (09:23→17:28)
[2016-08-27] MEDS ORDERED: GLYCOPYRROLATE INJ 0.4 MG/2 ML VIAL ONE (09:43)
[2016-08-27] MEDS ORDERED: ONDANSETRON HCL INJ/PF 4 MG/2 ML SDV ONE (09:43)
[2016-08-27] MEDS ORDERED: SUCCINYLCHOLINE CHLORIDE INJ 200 MG/10 ML VIAL ONE (09:43)
[2016-08-27] MEDS ORDERED: DEXAMETHASONE SOD PHOSPHATE INJ 4 MG/1 ML VIAL ONE (09:43)
[2016-08-27] MEDS ORDERED: NORMAL SALINE 1000 ML 1,000 ML IV PRN (11:15)
--- NOTE | 2016-08-27 11:58 | PROGRESS NOTE E ---
Progress Note NAME: XUAN BYERS : 1965 AGE: 51Y DATE: 08/27/2016 ROOM: 320 SUBJECTIVE: The patient is lying in bed. He states he feels fine today. He denies any nausea, vomiting, diarrhea. No shortness of breath, dizziness, chest pain. No fevers, chills. Patient has been afebrile. His blood pressure has been in a good range. Blood sugar is still a little elevated, and the patient does not voice any other concerns at this time. BRIEF HISTORY: The patient is a very pleasant 51-year-old -Faroese male with a past medical history of diabetes mellitus type 2. The patient presented to the emergency department due to a cellulitis of his panus. However, the patient had been on metformin for his blood sugar and was supposed to be taking insulin, but he does not have any interest in this. Therefore, the patient's A1C was found to be greater than 14. Explained the importance of insulin and the patient will receive education. The patient was seen by Surgery this morning and the patient is to go to the OR this afternoon for exploration of the area of cellulitis. Will continue antibiotic coverage. REVIEW OF SYSTEMS: Rest of review of systems negative. MEDICATIONS: Medications have been reviewed. OBJECTIVE: GENERAL: The patient is a 51-year-old -Faroese male who is awake, alert, and oriented to person, place, time, and situation. He is verbal, conversational, does not appear to be in any acute distress. VITAL SIGNS: Temperature is 99.1, pulse 106, respirations 21, blood pressure 133/61, oxygen saturation is 97% on room air. SKIN: Warm and dry. No rash. He is not diaphoretic. HEENT: Pupils equal, round, and reactive to light and accommodation. Conjunctiva pink. No JVP. CARDIOVASCULAR SYSTEM: Heart is regular. There is no murmur or rub. CHEST: Clear, symmetrical, unlabored. ABDOMEN: Obese, soft. Dressing in place. EXTREMITIES: No clubbing, cyanosis, edema. PSYCHIATRIC: Appropriate affect, pleasant mood. DIAGNOSTICS: Lab values are as follows: Hematology obtained on 08/27/2016: WBCs are 22.7, hemoglobin is 9.2, hematocrit is 29.0, platelet count is 236,000. Chemistry obtained on 08/27/2016: Sodium is 138, potassium 4.6, chloride is 105, carbon dioxide 17, BUN 18, creatinine is 0.91, glucose 234, calcium is 8.8, magnesium is 2.4. Microbiology: Blood cultures obtained on 08/25/2016: Blood cultures reveal no growth. Urine culture obtained on 08/25/2016 reveals no growth. Wound culture obtained on 08/25/2016 reveals group B Streptococcus. IMPRESSION AND PLAN: 1. GROUP B STREPTOCOCCUS CELLULITIS WOUND. The patient is to go to the OR today with Surgery. Will continue IV antibiotic coverage and follow. 2. HYPEROSMOLAR HYPERGLYCEMIC STATE. Overall much improved. Have started the patient on a basal dose of insulin. 3. UNCONTROLLED DIABETES MELLITUS TYPE 2. The patient does need education from both the dietary and insulin standpoint. I am leery to adjust his insulin dosages for now because he has not been taking his metformin since he has been here. Have restarted the metformin. Continue the current basal dose of insulin and monitor. Some of this also is going to be skewed due to his n.p.o. process for the OR. 4. HYPERTENSION. Blood pressures are relatively stable. Will defer any medications for now. 5. MORBID OBESITY. Encouraged weight reduction. 6. SEPSIS, PRESENT ON ADMISSION SECONDARY TO THE ABOVE. The patient's white count still remains high. Will continue antibiotic coverage. Hopefully, this will improve once the patient goes to the OR. 7. DVT PROPHYLAXIS. Will continue subcu Lovenox. DISPOSITION: The patient is a FULL CODE. Pending patient's symptomatology and diagnostic findings, will re-evaluate in the a.m. Time spent on this followup including assessment, plan, physical examination, patient education, and specialty collaboration is 20 minutes. DICTATING PHYSICIAN: FIDE MORALES NP [id number] PHY#: [id number] ID: [id number] JOB#: [id number] ACCT: [id number] cc: >
[2016-08-27] MEDS ORDERED: LIDOCAINE 1% INJ-PF (10 MG/ML) 30 ML SDV ONE (12:26)
[2016-08-27] MEDS ORDERED: MIDAZOLAM 2 MG/2 ML INJ ONE (12:53)
[2016-08-27] MEDS ORDERED: FENTANYL CITRATE INJ/PF 250 MCG/5 ML AMPULE ONE (12:53)
[2016-08-27] MEDS ORDERED: FENTANYL CITRATE INJ/PF 100 MCG/2 ML AMPUL ONE (12:53)
[2016-08-27] MEDS ORDERED: EPHEDRINE SULFATE INJ 50 MG/1 ML AMPULE ONE (12:54)
[2016-08-27] MEDS ORDERED: PROPOFOL INJ 200 MG/20 ML VIAL IV ONE (12:55)
[2016-08-27] MEDS ORDERED: IBUPROFEN INJ 800 MG/8 ML VIAL IV ONE (12:55)
[2016-08-27] MEDS ORDERED: ACETAMINOPHEN 0 ML IV ONE (12:55)
[2016-08-27] MEDS ORDERED: AMPICILLIN SOD/SULBACTAM 1.5 GM VIAL ONE (13:05)
--- NOTE | 2016-08-27 13:57 | Operative Report ---
Operative Report DATE OF SURGERY: 08/27/16 PREOPERATIVE DIAGNOSIS: Panniculitis abdominal wall abscess POSTOPERATIVE DIAGNOSIS: same. deep subcutaneous infection OPERATION: Debridement of anterior abdominal wall subcutaneous tissue, counterincisions and Louise drains placed SURGEON: SEGUNDO ANN ANESTHESIA: GA TISSUE REMOVED OR ALTERED: fat COMPLICATIONS: none ESTIMATED BLOOD LOSS: 30 cc INTRAOPERATIVE FINDINGS: see below PROCEDURE: The taken from the preoperative holding area to the operating room where general anesthesia was induced. Abdominal wall was prepped and draped in sterile fashion Surgical plan and surgical timeout were conducted. There was an area of previous debridement of the anterior abdominal wall, right lower quadrant, over the large panniculus. The open wound approximately 3 and half centimeters in diameter was cored out. We then used this as an entry point to begin mechanical finger debridement of the deep subcutaneous tissue all loculated pockets consistent with MRSA. This was the typical woody 1 encounters with the sort of infection. After anesthesia with topical lidocaine, 2 counterincisions were made 1 approximately 12 cm superior to the initial draining site, and a second counterincision superior and lateral to the initial draining site. 2 large Louise drains were looped in a circumferential fashion through these counterincisions. More subcutaneous tissue was mechanically debrided with fingers and 4 x 4's and. Wound irrigated out with several liters of saline. The amount of subcutaneous tissue debridement was approximately grams. All wounds were packed open with the Kerlix gauze. The Friend drains 2 were tied in knots. Abdominal wall pads were placed. Tolerated the procedure well, extubated taken to the recovery room in stable condition
[2016-08-27] MEDS ORDERED: VANCOMYCIN HCL 0 MG in DEXTROSE 5%-WATER 250 ML IV NR (14:00)
[2016-08-27] MEDS ORDERED: VANCOMYCIN HCL 2,000 MG in DEXTROSE 5%-WATER 500 ML IV ONE (15:00)
[2016-08-27] MEDS: METFORMIN HCL 500 MG TABLET PO SCH (17:27)
[2016-08-27] MEDS: PIPERACILLIN SODIUM/TAZOBACTAM 4.5 GM in NORMAL SALINE 100 ML IV SCH (17:27)
[2016-08-27] MEDS: HYDROCODONE/ACETAMINOPHEN 7.5-325 MG TABLET PO PRN (20:15)
[2016-08-27] MEDS ORDERED: MAG HYDROX/AL HYDROX/SIMETH SUSP 30 ML UDCUP PO PRN (20:17)
[2016-08-27] MEDS: VANCOMYCIN HCL 1,250 MG in DEXTROSE 5%-WATER 250 ML IV SCH (22:17)
[2016-08-27] MEDS: INSULIN GLARGINE,HUM.REC.ANLOG 300 UNIT/3 ML INSULN.PEN SUBCUT SCH (22:18)
[2016-08-28] MEDS: PIPERACILLIN SODIUM/TAZOBACTAM 4.5 GM in NORMAL SALINE 100 ML IV SCH ×4 (00:59→18:19)
[2016-08-28 05:49] LABS: HEMATOCRIT 24.6 % (37.9-51.0); HGB HCT DIFFERENCE -0.9; MEAN CORPUSCULAR HGB CONC 32.1 g/dL (32.0-36.0); MEAN CORPUSCULAR VOLUME 93 fl (80-97); RED BLOOD COUNT 2.63 10^6/uL (4.35-5.55); RED CELL DISTRIBUTION WIDTH 13.5 % (11.5-14.0); WHITE BLOOD COUNT 20.9 10^3/uL (4.0-10.5)
[2016-08-28 05:57] LABS: HEMOGLOBIN 7.9 g/dL (13.5-17.0)
[2016-08-28 06:07] LABS: ANION GAP 13 (5-19); BLOOD UREA NITROGEN 17 mg/dL (7-20); CALCIUM 8.2 mg/dL (8.4-10.2); CARBON DIOXIDE 20 mmol/L (22-30); CHLORIDE 101 mmol/L (98-107); CREATININE RESULT 0.93 mg/dL (0.52-1.25); GLUCOSE 243 mg/dL (75-110); MAGNESIUM 2.1 mg/dL (1.6-2.3); POTASSIUM 4.4 mmol/L (3.6-5.0); SODIUM 133.8 mmol/L (137-145)
[2016-08-28] MEDS: VANCOMYCIN HCL 1,250 MG in DEXTROSE 5%-WATER 250 ML IV SCH (08:01)
[2016-08-28] MEDS: METFORMIN HCL 500 MG TABLET PO SCH ×2 (10:48→16:39)
--- NOTE | 2016-08-28 10:48 | PDOC PROGRESS REPORT ---
Subjective Subjective:: Patient comfortable with some lower abdominal lower wounds discomfort Physical Exam Vital Signs: Temp Pulse Resp BP Pulse Ox 97.9 F 110 H 14 114/63 97 08/28/16 07:33 08/28/16 07:33 08/28/16 07:33 08/28/16 07:33 08/28/16 07:33 Intake & Output 08/27/16 08/28/16 08/29/16 06:59 06:59 06:59 Intake Total 3172 7865 Output Total 4400 6050 Balance -1228 1815 Weight 147.9 kg 148 kg GI/Abdominal exam: PRESENT: soft, other - skin wounds all clean, no odor or drainage, no cellulitis, minimall painful Results Laboratory Results: 08/28/16 05:34 08/28/16 05:34 08/28/16 08/28/16 05:34 05:34 WBC 20.9 H RBC 2.63 L Hgb 7.9 L Hct 24.6 L MCV 93 MCH 30.0 MCHC 32.1 RDW 13.5 Plt Count 332 Sodium 133.8 L Potassium 4.4 Chloride 101 Carbon Dioxide 20 L Anion Gap 13 BUN 17 Creatinine 0.93 Est GFR ( Amer) > 60 Est GFR (Non-Af Amer) > 60 Glucose 243 H Calcium 8.2 L Magnesium 2.1 08/25/16 10:58 Clean Catch Midstream Urine Culture - Final C.albicans/C.dubliniensis Impressions: Abdomen/Pelvis CT 08/25/16 00:00 IMPRESSION: NO SIGNIFICANT OR ACUTE PROCESS IN THE ABDOMEN OR PELVIS. Abdomen Ultrasound 08/26/16 00:00 IMPRESSION: NO SOFT TISSUE MASS, FLUID COLLECTION, OR FOREIGN BODY. Assessment & Plan - Plan Summary Plan Summary: Assessment: POD #1 after I&D of lower abdominal abscess/phlegmon area Cx significant for streptococcus epidermins and anaeronbics on Zosyn WBC not done today Abdominal wounds are clean Plan: Continue Zosyn until final cx results are back BID wet-to-dry dressing changes HL IVF possible d/c to home in 1 day
[2016-08-28] MEDS: INSULIN LISPRO 100 UNIT/ML 3 ML VIAL SUBCUT PRN ×4 (10:49→22:29)
[2016-08-28] MEDS: ENOXAPARIN SODIUM INJ 40 MG/0.4 ML DISP.SYRIN SUBCUT SCH (10:49)
[2016-08-28] MEDS: HYDROCODONE/ACETAMINOPHEN 7.5-325 MG TABLET PO PRN ×2 (10:53→22:30)
[2016-08-28] MEDS: NYSTATIN TOPICAL POWDER 15 GM TP SCH ×2 (11:02→18:24)
--- NOTE | 2016-08-28 16:56 | PDOC PROGRESS REPORT ---
Subjective Progress Note for:: 08/28/16 Subjective:: Patient seen on morning rounds. He is sitting in bedside chair eating breakfast. Denies significant pain. States it is tender to the touch or with movement. He overall feels improved from yesterday. Denies any chest pain, shortness of breath or dyspnea. Denies any fever or chills. He denies any significant arthralgias or myalgias. Remaining review systems negative. Physical Exam Vital Signs: Temp Pulse Resp BP Pulse Ox 98.5 F 112 H 16 121/63 97 08/28/16 15:30 08/28/16 15:30 08/28/16 15:30 08/28/16 15:30 08/28/16 15:30 Intake & Output 08/27/16 08/28/16 08/29/16 06:59 06:59 06:59 Intake Total 3172 7865 432 Output Total 4400 6050 1450 Balance -1228 1815 -1018 Weight 147.9 kg 148 kg General appearance: PRESENT: no acute distress, morbidly obese, well-developed, well-nourished Head exam: PRESENT: atraumatic, normocephalic Eye exam: PRESENT: conjunctiva pink, EOMI, PERRLA. ABSENT: scleral icterus Ear exam: PRESENT: normal external ear exam Mouth exam: PRESENT: moist, tongue midline Respiratory exam: PRESENT: clear to auscultation karmen. ABSENT: rales, rhonchi, wheezes Cardiovascular exam: PRESENT: RRR. ABSENT: diastolic murmur, rubs, systolic murmur Pulses: PRESENT: normal dorsalis pedis pul Vascular exam: PRESENT: normal capillary refill GI/Abdominal exam: PRESENT: normal bowel sounds, soft. ABSENT: distended, guarding, mass, organolmegaly, rebound, tenderness Rectal exam: PRESENT: deferred Extremities exam: PRESENT: full ROM. ABSENT: calf tenderness, clubbing, pedal edema Musculoskeletal exam: PRESENT: ambulatory Neurological exam: PRESENT: alert, awake, oriented to person, oriented to place , oriented to time, oriented to situation, CN II-XII grossly intact. ABSENT: motor sensory deficit Skin exam: PRESENT: dry, warm, other Results Laboratory Results: 08/28/16 05:34 08/28/16 05:34 08/28/16 08/28/16 05:34 05:34 WBC 20.9 H RBC 2.63 L Hgb 7.9 L Hct 24.6 L MCV 93 MCH 30.0 MCHC 32.1 RDW 13.5 Plt Count 332 Sodium 133.8 L Potassium 4.4 Chloride 101 Carbon Dioxide 20 L Anion Gap 13 BUN 17 Creatinine 0.93 Est GFR ( Amer) > 60 Est GFR (Non-Af Amer) > 60 Glucose 243 H Calcium 8.2 L Magnesium 2.1 Impressions: Abdomen/Pelvis CT 08/25/16 00:00 IMPRESSION: NO SIGNIFICANT OR ACUTE PROCESS IN THE ABDOMEN OR PELVIS. Abdomen Ultrasound 08/26/16 00:00 IMPRESSION: NO SOFT TISSUE MASS, FLUID COLLECTION, OR FOREIGN BODY. Assessment & Plan - Diagnosis (1) Abdominal wall abscess Is this a current diagnosis for this admission?: YesPlan: Continue local wound care per surgialist service (2) Diabetic ketoacidosis Qualifiers: Diabetes mellitus type: type 2 Diabetes mellitus complication detail: without coma Qualified Code(s): E13.10 - Other specified diabetes mellitus with ketoacidosis without coma (3) Leukocytosis Qualifiers: Leukocytosis type: bandemia Qualified Code(s): D72.825 - Bandemia Is this a current diagnosis for this admission?: YesPlan: Resolving with debridement and IV antibiotic therapy (4) Poorly controlled diabetes mellitus Is this a current diagnosis for this admission?: Yes - Time Time Spent with patient: 25-34 minutes Critical Time spent with patient: 15-24 minutes Medications reviewed and adjusted accordingly: Yes
[2016-08-28] MEDS: INSULIN GLARGINE,HUM.REC.ANLOG 300 UNIT/3 ML INSULN.PEN SUBCUT SCH (22:29)
[2016-08-29] MEDS: PIPERACILLIN SODIUM/TAZOBACTAM 4.5 GM in NORMAL SALINE 100 ML IV SCH ×5 (00:17→23:23)
[2016-08-29 04:59] LABS: HEMATOCRIT 22.2 % (37.9-51.0); HGB HCT DIFFERENCE -0.9; MEAN CORPUSCULAR HEMOGLOBIN 29.5 pg (27.0-33.4); MEAN CORPUSCULAR HGB CONC 31.9 g/dL (32.0-36.0); MEAN CORPUSCULAR VOLUME 92 fl (80-97); RED CELL DISTRIBUTION WIDTH 13.5 % (11.5-14.0); WHITE BLOOD COUNT 22.7 10^3/uL (4.0-10.5)
[2016-08-29 05:12] LABS: ANION GAP 9 (5-19); BLOOD UREA NITROGEN 16 mg/dL (7-20); CARBON DIOXIDE 23 mmol/L (22-30); CHLORIDE 103 mmol/L (98-107); CREATININE RESULT 0.95 mg/dL (0.52-1.25); GLUCOSE 215 mg/dL (75-110); SODIUM 134.8 mmol/L (137-145)
[2016-08-29 05:33] LABS: BAND NEUTROPHILS % (MANUAL) 2 % (3-5); BASOPHILS % (MANUAL) 0 % (0-2); EOSINOPHILS % (MANUAL) 0 % (0-6); LYMPHOCYTES % (MANUAL) 10 % (13-45); TOTAL CELLS COUNTED 100
[2016-08-29 05:36] LABS: BURR CELLS SLIGHT; PLATELET CLUMPS PRESENT; POLYCHROMASIA SLIGHT; ROULEAUX SLIGHT; TOXIC GRANULATION 1+; TOXIC VACUOLATION PRESENT
[2016-08-29 05:43] LABS: HEMOGLOBIN 7.1 g/dL (13.5-17.0)
[2016-08-29] MEDS ORDERED: NORMAL SALINE 250 ML IV PRN ×2 (05:57)
[2016-08-29 07:17] LABS: CREATININE RESULT 0.91 mg/dL (0.52-1.25)
[2016-08-29] MEDS: METFORMIN HCL 500 MG TABLET PO SCH ×2 (08:50→17:36)
[2016-08-29] MEDS: INSULIN LISPRO 100 UNIT/ML 3 ML VIAL SUBCUT PRN ×4 (08:50→23:23)
[2016-08-29] MEDS: NYSTATIN TOPICAL POWDER 15 GM TP SCH ×2 (10:28→19:26)
[2016-08-29] MEDS: ENOXAPARIN SODIUM INJ 40 MG/0.4 ML DISP.SYRIN SUBCUT SCH (10:28)
[2016-08-29] MEDS: HYDROCODONE/ACETAMINOPHEN 7.5-325 MG TABLET PO PRN ×2 (11:26→15:37)
--- NOTE | 2016-08-29 14:58 | PDOC PROGRESS REPORT ---
Subjective Progress Note for:: 08/29/16 Subjective:: Patient seen on morning rounds. He is sitting in bedside chair eating breakfast. Denies significant pain. States it is tender to the touch or with movement. He overall feels improved from yesterday. Denies any chest pain, shortness of breath or dyspnea. Denies any fever or chills. He denies any significant arthralgias or myalgias. Remaining review systems are negative. Physical Exam Vital Signs: Temp Pulse Resp BP Pulse Ox 99.6 F 106 H 16 116/73 100 08/29/16 14:00 08/29/16 14:00 08/29/16 14:00 08/29/16 14:00 08/29/16 14:00 Intake & Output 08/28/16 08/29/16 08/30/16 06:59 06:59 06:59 Intake Total 7865 1625 350 Output Total 6050 3950 Balance 1815 -2325 350 Weight 148 kg 150.9 kg General appearance: PRESENT: no acute distress, morbidly obese, well-developed, well-nourished Head exam: PRESENT: atraumatic, normocephalic Eye exam: PRESENT: conjunctiva pink, EOMI, PERRLA. ABSENT: scleral icterus Ear exam: PRESENT: normal external ear exam Mouth exam: PRESENT: moist, tongue midline Neck exam: ABSENT: carotid bruit, JVD, lymphadenopathy, thyromegaly Respiratory exam: PRESENT: clear to auscultation karmen. ABSENT: rales, rhonchi, wheezes Cardiovascular exam: PRESENT: RRR. ABSENT: diastolic murmur, rubs, systolic murmur Pulses: PRESENT: normal dorsalis pedis pul Vascular exam: PRESENT: normal capillary refill GI/Abdominal exam: PRESENT: normal bowel sounds, soft. ABSENT: distended, guarding, mass, organolmegaly, rebound, tenderness Rectal exam: PRESENT: deferred Extremities exam: PRESENT: full ROM. ABSENT: calf tenderness, clubbing, pedal edema Musculoskeletal exam: PRESENT: ambulatory, full ROM Neurological exam: PRESENT: alert, awake, oriented to person, oriented to place , oriented to time, oriented to situation, CN II-XII grossly intact. ABSENT: motor sensory deficit Psychiatric exam: PRESENT: appropriate affect, normal mood. ABSENT: homicidal ideation, suicidal ideation Skin exam: PRESENT: dry, intact, warm. ABSENT: cyanosis, rash Results Laboratory Results: 08/29/16 04:33 08/29/16 06:42 08/29/16 08/29/16 08/29/16 04:33 04:33 06:42 WBC 22.7 H RBC 2.40 L Hgb 7.1 L Hct 22.2 L MCV 92 MCH 29.5 MCHC 31.9 L RDW 13.5 Plt Count 327 Seg Neutrophils % Not Reportable Lymphocytes % Not Reportable Monocytes % Not Reportable Eosinophils % Not Reportable Basophils % Not Reportable Absolute Neutrophils Not Reportable Absolute Lymphocytes Not Reportable Absolute Monocytes Not Reportable Absolute Eosinophils Not Reportable Absolute Basophils Not Reportable Sodium 134.8 L Potassium 4.0 Chloride 103 Carbon Dioxide 23 Anion Gap 9 BUN 16 Creatinine 0.95 0.91 Est GFR ( Amer) > 60 > 60 Est GFR (Non-Af Amer) > 60 > 60 Glucose 215 H Calcium 8.0 L Blood Type Antibody Screen 08/29/16 06:42 WBC RBC Hgb Hct MCV MCH MCHC RDW Plt Count Seg Neutrophils % Lymphocytes % Monocytes % Eosinophils % Basophils % Absolute Neutrophils Absolute Lymphocytes Absolute Monocytes Absolute Eosinophils Absolute Basophils Sodium Potassium Chloride Carbon Dioxide Anion Gap BUN Creatinine Est GFR ( Amer) Est GFR (Non-Af Amer) Glucose Calcium Blood Type B POSITIVE Antibody Screen NEGATIVE 08/25/16 16:45 Abdomen - Right Side Abscess Gram Stain - Final 08/25/16 16:45 Abdomen - Right Side Abscess Wound Culture - Final Staphylococcus Epidermidis Strep Anginosus Group Group B Beta Streptococcus Peptostreptococcus Species Prevotella Species Impressions: Abdomen/Pelvis CT 08/25/16 00:00 IMPRESSION: NO SIGNIFICANT OR ACUTE PROCESS IN THE ABDOMEN OR PELVIS. Abdomen Ultrasound 08/26/16 00:00 IMPRESSION: NO SOFT TISSUE MASS, FLUID COLLECTION, OR FOREIGN BODY. Assessment & Plan - Diagnosis (1) Abdominal wall abscess Is this a current diagnosis for this admission?: YesPlan: Continue local wound care per surgialist service. No significant bleeding from the wound (2) Diabetic ketoacidosis Qualifiers: Diabetes mellitus type: type 2 Diabetes mellitus complication detail: without coma Qualified Code(s): E13.10 - Other specified diabetes mellitus with ketoacidosis without coma Plan: Resolved. Will continue on oral gents and sliding scale (3) Leukocytosis Qualifiers: Leukocytosis type: bandemia Qualified Code(s): D72.825 - Bandemia Is this a current diagnosis for this admission?: YesPlan: Resolving with debridement and IV antibiotic therapy (4) Poorly controlled diabetes mellitus Is this a current diagnosis for this admission?: YesPlan: Improving - Time Time Spent with patient: 25-34 minutes Medications reviewed and adjusted accordingly: Yes Anticipated discharge: Home with Homehealth
--- NOTE | 2016-08-29 15:58 | PDOC PROGRESS REPORT ---
Subjective Subjective:: Patient comfortable with some lower abdominal lower wounds discomfort, not worse than yesterday's pain Physical Exam Vital Signs: Temp Pulse Resp BP Pulse Ox 98.7 F 106 H 18 128/65 H 96 08/29/16 15:11 08/29/16 15:11 08/29/16 15:11 08/29/16 15:11 08/29/16 15:11 Intake & Output 08/28/16 08/29/16 08/30/16 06:59 06:59 06:59 Intake Total 7865 1625 350 Output Total 6050 3950 Balance 1815 -2325 350 Weight 148 kg 150.9 kg Respiratory exam: PRESENT: clear to auscultation karmen Cardiovascular exam: PRESENT: RRR GI/Abdominal exam: PRESENT: other - large pannus, multiple Viola drains in place; RLQ skin firm, not tender Results Laboratory Results: 08/29/16 04:33 08/29/16 06:42 08/29/16 08/29/16 08/29/16 04:33 04:33 06:42 WBC 22.7 H RBC 2.40 L Hgb 7.1 L Hct 22.2 L MCV 92 MCH 29.5 MCHC 31.9 L RDW 13.5 Plt Count 327 Seg Neutrophils % Not Reportable Lymphocytes % Not Reportable Monocytes % Not Reportable Eosinophils % Not Reportable Basophils % Not Reportable Absolute Neutrophils Not Reportable Absolute Lymphocytes Not Reportable Absolute Monocytes Not Reportable Absolute Eosinophils Not Reportable Absolute Basophils Not Reportable Sodium 134.8 L Potassium 4.0 Chloride 103 Carbon Dioxide 23 Anion Gap 9 BUN 16 Creatinine 0.95 0.91 Est GFR ( Amer) > 60 > 60 Est GFR (Non-Af Amer) > 60 > 60 Glucose 215 H Calcium 8.0 L Blood Type Antibody Screen 08/29/16 06:42 WBC RBC Hgb Hct MCV MCH MCHC RDW Plt Count Seg Neutrophils % Lymphocytes % Monocytes % Eosinophils % Basophils % Absolute Neutrophils Absolute Lymphocytes Absolute Monocytes Absolute Eosinophils Absolute Basophils Sodium Potassium Chloride Carbon Dioxide Anion Gap BUN Creatinine Est GFR ( Amer) Est GFR (Non-Af Amer) Glucose Calcium Blood Type B POSITIVE Antibody Screen NEGATIVE 08/25/16 16:45 Abdomen - Right Side Abscess Gram Stain - Final 08/25/16 16:45 Abdomen - Right Side Abscess Wound Culture - Final Staphylococcus Epidermidis Strep Anginosus Group Group B Beta Streptococcus Peptostreptococcus Species Prevotella Species Impressions: Abdomen/Pelvis CT 08/25/16 00:00 IMPRESSION: NO SIGNIFICANT OR ACUTE PROCESS IN THE ABDOMEN OR PELVIS. Abdomen Ultrasound 08/26/16 00:00 IMPRESSION: NO SOFT TISSUE MASS, FLUID COLLECTION, OR FOREIGN BODY. Assessment & Plan - Diagnosis (1) Abdominal wall abscess Is this a current diagnosis for this admission?: Yes - Plan Summary Plan Summary: A/ POD #2 after I&D abdominal pannus abscess persistend leucocytosis 22K today, cause? Cx from abdominal wall abscess grow staph and strept, negative MRSA patient on Zosyn only, off Vanco UA= overall negative Wounds clean, dressings in place Anemia (Hb 7) Plan: Continue IV Zosyn which seems to be appropriate Obtain Chest Xray to r/o respiratory issue as possible the leucocytosis agree with blood transfusion If Chest xray is negative, I would consider a repeat CT scan A/P to r/o persistent pockets of subcutaneous abscess
[2016-08-29 19:38] LABS: HEMATOCRIT 26.9 % (37.9-51.0); HEMOGLOBIN 8.6 g/dL (13.5-17.0); HGB HCT DIFFERENCE -1.1; MEAN CORPUSCULAR HEMOGLOBIN 29.7 pg (27.0-33.4); MEAN CORPUSCULAR HGB CONC 32.1 g/dL (32.0-36.0); MEAN CORPUSCULAR VOLUME 93 fl (80-97); RED CELL DISTRIBUTION WIDTH 13.6 % (11.5-14.0); WHITE BLOOD COUNT 22.5 10^3/uL (4.0-10.5)
[2016-08-29 19:56] LABS: BAND NEUTROPHILS % (MANUAL) 3 % (3-5); BASOPHILS % (MANUAL) 0 % (0-2); EOSINOPHILS % (MANUAL) 0 % (0-6); LYMPHOCYTES % (MANUAL) 5 % (13-45); TOTAL CELLS COUNTED 100
[2016-08-29 20:00] LABS: PLATELET CLUMPS PRESENT; POLYCHROMASIA SLIGHT; TARGET CELLS SLIGHT; TEAR DROP CELLS SLIGHT; TOXIC GRANULATION 1+; TOXIC VACUOLATION PRESENT
[2016-08-29 20:01] LABS: POIKILOCYTOSIS SLIGHT
--- NOTE | 2016-08-29 21:52 | RADIOLOGY REPORT (SQ) ---
EXAM DESCRIPTION: CHEST PA/LAT COMPLETED DATE/TIME: 08/29/2016 9:38 pm REASON FOR STUDY: leucocytosis unknown cause, r/o pneumonia COMPARISON: None. EXAM PARAMETERS: NUMBER OF VIEWS: two views TECHNIQUE: Digital Frontal and Lateral radiographic views of the chest acquired. RADIATION DOSE: NA LIMITATIONS: none FINDINGS: LUNGS AND PLEURA: No opacities, masses or pneumothorax. No pleural effusion. MEDIASTINUM AND HILAR STRUCTURES: No masses or contour abnormalities. HEART AND VASCULAR STRUCTURES: Heart normal size. No evidence for failure. BONES: No acute findings. HARDWARE: None in the chest. OTHER: No other significant finding. IMPRESSION: NO SIGNIFICANT RADIOGRAPHIC FINDING IN THE CHEST. TECHNICAL DOCUMENTATION: JOB ID: [id number] [employer]- All Rights Reserved
[2016-08-29] MEDS ORDERED: INSULIN GLARGINE,HUM.REC.ANLOG 1,000 UNIT/10 ML UNIT SUBCUT ONE (23:30)
[2016-08-29] MEDS: INSULIN GLARGINE,HUM.REC.ANLOG 300 UNIT/3 ML INSULN.PEN SUBCUT SCH (23:33)
[2016-08-30] MEDS: HYDROCODONE/ACETAMINOPHEN 7.5-325 MG TABLET PO PRN ×3 (00:41→20:07)
[2016-08-30 06:29] LABS: ANION GAP 9 (5-19); BLOOD UREA NITROGEN 12 mg/dL (7-20); CARBON DIOXIDE 24 mmol/L (22-30); CHLORIDE 104 mmol/L (98-107); CREATININE RESULT 0.93 mg/dL (0.52-1.25); GLUCOSE 204 mg/dL (75-110); SODIUM 136.6 mmol/L (137-145)
[2016-08-30] MEDS: PIPERACILLIN SODIUM/TAZOBACTAM 4.5 GM in NORMAL SALINE 100 ML IV SCH ×3 (06:32→18:06)
[2016-08-30 06:38] LABS: HEMATOCRIT 24.9 % (37.9-51.0); HEMOGLOBIN 8.2 g/dL (13.5-17.0); HGB HCT DIFFERENCE -0.3; MEAN CORPUSCULAR HEMOGLOBIN 30.2 pg (27.0-33.4); MEAN CORPUSCULAR HGB CONC 32.8 g/dL (32.0-36.0); MEAN CORPUSCULAR VOLUME 92 fl (80-97); RED CELL DISTRIBUTION WIDTH 13.7 % (11.5-14.0); WHITE BLOOD COUNT 22.5 10^3/uL (4.0-10.5)
[2016-08-30 07:11] LABS: BAND NEUTROPHILS % (MANUAL) 5 % (3-5); BASOPHILS % (MANUAL) 0 % (0-2); EOSINOPHILS % (MANUAL) 1 % (0-6); LYMPHOCYTES % (MANUAL) 11 % (13-45); NUCLEATED RED BLOOD CELLS 1 /100 WBC (0); POLYCHROMASIA SLIGHT; TOTAL CELLS COUNTED 100; TOXIC GRANULATION 1+; TOXIC VACUOLATION PRESENT
--- NOTE | 2016-08-30 07:56 | RADIOLOGY REPORT (SQ) ---
EXAM DESCRIPTION: CHEST PA/LAT COMPLETED DATE/TIME: 08/30/2016 7:42 am REASON FOR STUDY: WBC unknown cause, r/o pneumonia COMPARISON: 08/29/2016. EXAM PARAMETERS: NUMBER OF VIEWS: two views TECHNIQUE: Digital Frontal and Lateral radiographic views of the chest acquired. RADIATION DOSE: NA LIMITATIONS: none FINDINGS: LUNGS AND PLEURA: No opacities, masses or pneumothorax. No pleural effusion. MEDIASTINUM AND HILAR STRUCTURES: No masses or contour abnormalities. HEART AND VASCULAR STRUCTURES: Heart normal size. No evidence for failure. BONES: No acute findings. Degenerative changes in the spine. HARDWARE: None in the chest. OTHER: No other significant finding. IMPRESSION: NO SIGNIFICANT RADIOGRAPHIC FINDING IN THE CHEST. TECHNICAL DOCUMENTATION: JOB ID: [id number] [employer]- All Rights Reserved
[2016-08-30] MEDS: INSULIN LISPRO 100 UNIT/ML 3 ML VIAL SUBCUT PRN ×4 (08:10→22:52)
[2016-08-30] MEDS: METFORMIN HCL 500 MG TABLET PO SCH ×2 (08:10→16:49)
--- NOTE | 2016-08-30 08:59 | PDOC PROGRESS REPORT ---
Subjective Progress Note for:: 08/30/16 Subjective:: Lower abdomen feels better. Physical Exam Vital Signs: Temp Pulse Resp BP Pulse Ox 98.6 F 107 H 18 110/62 99 08/30/16 08:00 08/30/16 08:00 08/30/16 08:00 08/30/16 08:00 08/30/16 08:00 Intake & Output 08/29/16 08/30/16 08/31/16 06:59 06:59 06:59 Intake Total 1625 3235 Output Total 3950 1350 Balance -2325 1885 Weight 150.9 kg General appearance: PRESENT: no acute distress, cooperative GI/Abdominal exam: PRESENT: other - Right lower abdominal pannus with induration and erythema with open surgical wounds with minimal drainage no fluctuance no necrotic debris Results Laboratory Results: 08/30/16 04:52 08/30/16 04:52 08/29/16 08/29/16 08/30/16 06:42 19:27 04:52 WBC 22.5 H 22.5 H RBC 2.90 L 2.70 L Hgb 8.6 L 8.2 L Hct 26.9 L 24.9 L MCV 93 92 MCH 29.7 30.2 MCHC 32.1 32.8 RDW 13.6 13.7 Plt Count 350 328 Seg Neutrophils % Not Reportable Not Reportable Lymphocytes % Not Reportable Not Reportable Monocytes % Not Reportable Not Reportable Eosinophils % Not Reportable Not Reportable Basophils % Not Reportable Not Reportable Absolute Neutrophils Not Reportable Not Reportable Absolute Lymphocytes Not Reportable Not Reportable Absolute Monocytes Not Reportable Not Reportable Absolute Eosinophils Not Reportable Not Reportable Absolute Basophils Not Reportable Not Reportable Sodium Potassium Chloride Carbon Dioxide Anion Gap BUN Creatinine Est GFR ( Amer) Est GFR (Non-Af Amer) Glucose Calcium Blood Type B POSITIVE Antibody Screen NEGATIVE 08/30/16 04:52 WBC RBC Hgb Hct MCV MCH MCHC RDW Plt Count Seg Neutrophils % Lymphocytes % Monocytes % Eosinophils % Basophils % Absolute Neutrophils Absolute Lymphocytes Absolute Monocytes Absolute Eosinophils Absolute Basophils Sodium 136.6 L Potassium 4.0 Chloride 104 Carbon Dioxide 24 Anion Gap 9 BUN 12 Creatinine 0.93 Est GFR ( Amer) > 60 Est GFR (Non-Af Amer) > 60 Glucose 204 H Calcium 8.0 L Blood Type Antibody Screen 08/25/16 16:45 Abdomen - Right Side Abscess Gram Stain - Final 08/25/16 16:45 Abdomen - Right Side Abscess Wound Culture - Final Staphylococcus Epidermidis Strep Anginosus Group Group B Beta Streptococcus Peptostreptococcus Species Prevotella Species Impressions: Abdomen/Pelvis CT 08/25/16 00:00 IMPRESSION: NO SIGNIFICANT OR ACUTE PROCESS IN THE ABDOMEN OR PELVIS. Abdomen Ultrasound 08/26/16 00:00 IMPRESSION: NO SOFT TISSUE MASS, FLUID COLLECTION, OR FOREIGN BODY. Chest X-Ray 08/30/16 00:00 IMPRESSION: NO SIGNIFICANT RADIOGRAPHIC FINDING IN THE CHEST. Assessment & Plan - Diagnosis (1) Abdominal wall abscess Is this a current diagnosis for this admission?: YesPlan: Status post debridement and drainage. Patient with persistent leukocytosis. Will obtain a abdominal pelvic CT scan to evaluate for undrained abscess.
[2016-08-30 09:00] LABS: PATH REVIEW PATHOLOGIST REVIEWED
[2016-08-30] MEDS: ENOXAPARIN SODIUM INJ 40 MG/0.4 ML DISP.SYRIN SUBCUT SCH (11:01)
[2016-08-30] MEDS: NYSTATIN TOPICAL POWDER 15 GM TP SCH ×2 (11:02→18:07)
--- NOTE | 2016-08-30 11:04 | RADIOLOGY REPORT (SQ) ---
EXAM DESCRIPTION: CT ABD/PELVIS NO ORAL OR IV COMPLETED DATE/TIME: 08/30/2016 10:43 am REASON FOR STUDY: re-evaluate abdominal wall abscess COMPARISON: 08/25/2016 TECHNIQUE: CT scan of the abdomen and pelvis performed without intravenous or oral contrast. Images reviewed with lung, soft tissue, and bone windows. Reconstructed coronal and sagittal MPR images revi ewed. All images stored on PACS. All CT scanners at this facility use dose modulation, iterative reconstruction, and/or weight based d osing when appropriate to reduce radiation dose to as low as reasonably achievable (ALARA). [facility]: Dose Right [facility]: CareDose [facility]: Dose Right [facility]: Teradose 4D [facility]: Smart gestigon RADIATION DOSE: Up-to-date CT equipment and radiation dose reduction techniques were employed. CTDIv ol: 29.6 mGy. DLP: 1508 mGy-cm.mGy. LIMITATIONS: None. FINDINGS: LOWER CHEST: No significant findings. No nodules or infiltrates. NON-CONTRASTED LIVER, SPLEEN, ADRENALS: Evaluation limited by lack of IV contrast. No identified sign ificant masses. PANCREAS: No masses. No peripancreatic inflammatory changes. GALLBLADDER: No identified stones by CT criteria. No inflammatory changes to suggest cholecystitis. RIGHT KIDNEY AND URETER: No suspicious masses. Assessment limited by lack of IV contrast. No signif icant calcifications. No hydronephrosis or hydroureter. LEFT KIDNEY AND URETER: No suspicious masses. Assessment limited by lack of IV contrast. No signifi cant calcifications. No hydronephrosis or hydroureter. AORTA AND RETROPERITONEUM: No aneurysm. No retroperitoneal masses or adenopathy. BOWEL AND PERITONEAL CAVITY: No obvious masses or inflammatory changes. No free fluid. APPENDIX: Normal. PELVIS, BLADDER, AND ABDOMINAL WALL:No pelvic masses. No free fluid. Bladder normal. A panniculus is identified overlying the pelvis predominately to the right of midline. There is an irregular gas co llection within the panniculus which extends to the inferior and posterior scan surface. There is carroll rrounding edematous or inflammatory changes in the adjacent subcutaneous fat. Drainage catheters are identified in position. No discrete fluid collection is identified BONES: No significant findings. OTHER: No other significant finding. IMPRESSION: Irregular gas collection within a panniculus overlying the pelvis to the right of midlin e as noted above. There are edematous or inflammatory changes in the adjacent subcutaneous fat. Mavis inage catheters are identified. No discrete fluid collection is identified. No other significant in tra-abdominal or pelvic abnormalities were identified. Other findings as noted above. TECHNICAL DOCUMENTATION: JOB ID: [id number] Quality ID # [id number]: Final reports with documentation of one or more dose reduction techniques (e.g., Au tomated exposure control, adjustment of the mA and/or kV according to patient size, use of iterative reconstruction technique) 2010 [employer]- All Rights Reserved
--- NOTE | 2016-08-30 16:44 | PDOC PROGRESS REPORT ---
Subjective Progress Note for:: 08/30/16 Subjective:: Patient seen on morning rounds. He is sitting in bedside chair eating breakfast. Denies significant pain. States it is tender to the touch or with movement. He overall feels improved from yesterday. Denies any chest pain, shortness of breath or dyspnea. Denies any fever or chills. He denies any significant arthralgias or myalgias. Remaining review systems are negative. Physical Exam Vital Signs: Temp Pulse Resp BP Pulse Ox 98.4 F 101 H 18 132/86 H 100 08/30/16 16:00 08/30/16 16:00 08/30/16 16:00 08/30/16 16:00 08/30/16 16:00 Intake & Output 08/29/16 08/30/16 08/31/16 06:59 06:59 06:59 Intake Total 1625 3235 Output Total 3950 1350 Balance -2325 1885 Weight 150.9 kg 150.9 kg General appearance: PRESENT: no acute distress, morbidly obese, well-developed, well-nourished Head exam: PRESENT: atraumatic, normocephalic Eye exam: PRESENT: conjunctiva pink, EOMI, PERRLA. ABSENT: scleral icterus Ear exam: PRESENT: normal external ear exam Mouth exam: PRESENT: moist, tongue midline Neck exam: ABSENT: carotid bruit, JVD, lymphadenopathy, thyromegaly Respiratory exam: PRESENT: clear to auscultation karmen. ABSENT: rales, rhonchi, wheezes Cardiovascular exam: PRESENT: RRR. ABSENT: diastolic murmur, rubs, systolic murmur Pulses: PRESENT: normal dorsalis pedis pul Vascular exam: PRESENT: normal capillary refill GI/Abdominal exam: PRESENT: normal bowel sounds, soft, tenderness - right lower abdominal incisional area, dressing intact, other. ABSENT: distended, guarding , mass, organolmegaly, rebound Rectal exam: PRESENT: deferred Extremities exam: PRESENT: full ROM. ABSENT: calf tenderness, clubbing, pedal edema Neurological exam: PRESENT: alert, awake, oriented to person, oriented to place , oriented to time, oriented to situation, CN II-XII grossly intact. ABSENT: motor sensory deficit Psychiatric exam: PRESENT: appropriate affect, normal mood. ABSENT: homicidal ideation, suicidal ideation Skin exam: PRESENT: dry, intact, warm. ABSENT: cyanosis, rash Results Laboratory Results: 08/30/16 04:52 08/30/16 04:52 08/29/16 08/29/16 08/30/16 06:42 19:27 04:52 WBC 22.5 H 22.5 H RBC 2.90 L 2.70 L Hgb 8.6 L 8.2 L Hct 26.9 L 24.9 L MCV 93 92 MCH 29.7 30.2 MCHC 32.1 32.8 RDW 13.6 13.7 Plt Count 350 328 Seg Neutrophils % Not Reportable Not Reportable Lymphocytes % Not Reportable Not Reportable Monocytes % Not Reportable Not Reportable Eosinophils % Not Reportable Not Reportable Basophils % Not Reportable Not Reportable Absolute Neutrophils Not Reportable Not Reportable Absolute Lymphocytes Not Reportable Not Reportable Absolute Monocytes Not Reportable Not Reportable Absolute Eosinophils Not Reportable Not Reportable Absolute Basophils Not Reportable Not Reportable Sodium Potassium Chloride Carbon Dioxide Anion Gap BUN Creatinine Est GFR ( Amer) Est GFR (Non-Af Amer) Glucose Calcium Blood Type B POSITIVE Antibody Screen NEGATIVE 08/30/16 04:52 WBC RBC Hgb Hct MCV MCH MCHC RDW Plt Count Seg Neutrophils % Lymphocytes % Monocytes % Eosinophils % Basophils % Absolute Neutrophils Absolute Lymphocytes Absolute Monocytes Absolute Eosinophils Absolute Basophils Sodium 136.6 L Potassium 4.0 Chloride 104 Carbon Dioxide 24 Anion Gap 9 BUN 12 Creatinine 0.93 Est GFR ( Amer) > 60 Est GFR (Non-Af Amer) > 60 Glucose 204 H Calcium 8.0 L Blood Type Antibody Screen 08/25/16 10:25 Blood Blood Culture - Final NO GROWTH IN 5 DAYS 08/25/16 16:45 Abdomen - Right Side Abscess Gram Stain - Final 08/25/16 16:45 Abdomen - Right Side Abscess Wound Culture - Final Staphylococcus Epidermidis Strep Anginosus Group Group B Beta Streptococcus Peptostreptococcus Species Prevotella Species Impressions: Abdomen Ultrasound 08/26/16 00:00 IMPRESSION: NO SOFT TISSUE MASS, FLUID COLLECTION, OR FOREIGN BODY. Abdomen/Pelvis CT 08/30/16 00:00 IMPRESSION: Irregular gas collection within a panniculus overlying the pelvis to the right of midline as noted above. There are edematous or inflammatory changes in the adjacent subcutaneous fat. Drainage catheters are identified. No discrete fluid collection is identified. No other significant intra- abdominal or pelvic abnormalities were identified. Other findings as noted above. Chest X-Ray 08/30/16 00:00 IMPRESSION: NO SIGNIFICANT RADIOGRAPHIC FINDING IN THE CHEST. Assessment & Plan - Diagnosis (1) Abdominal wall abscess Is this a current diagnosis for this admission?: YesPlan: Continue local wound care per surgialist service. No significant bleeding from the wound (2) Diabetic ketoacidosis Qualifiers: Diabetes mellitus type: type 2 Diabetes mellitus complication detail: without coma Qualified Code(s): E13.10 - Other specified diabetes mellitus with ketoacidosis without coma Plan: Resolved. Will continue on oral gents and sliding scale (3) Leukocytosis Qualifiers: Leukocytosis type: bandemia Qualified Code(s): D72.825 - Bandemia Is this a current diagnosis for this admission?: YesPlan: Persistent leukocytosis despite appropriate antibiotic treatment. Chest xray was unremarkable. CT of the abdomen/pelvis showed no new fluid collections (4) Poorly controlled diabetes mellitus Is this a current diagnosis for this admission?: YesPlan: Lantus dose increased to 25 units - Time Time Spent with patient: 25-34 minutes Critical Time spent with patient: 15-24 minutes Medications reviewed and adjusted accordingly: Yes Anticipated discharge: SNF
[2016-08-30] MEDS: INSULIN GLARGINE,HUM.REC.ANLOG 300 UNIT/3 ML INSULN.PEN SUBCUT SCH (22:52)
[2016-08-31] MEDS: PIPERACILLIN SODIUM/TAZOBACTAM 4.5 GM in NORMAL SALINE 100 ML IV SCH ×5 (00:51→23:32)
[2016-08-31 05:52] LABS: HEMATOCRIT 26.1 % (37.9-51.0); HEMOGLOBIN 8.5 g/dL (13.5-17.0); HGB HCT DIFFERENCE -0.6; MEAN CORPUSCULAR HEMOGLOBIN 30.7 pg (27.0-33.4); MEAN CORPUSCULAR HGB CONC 32.7 g/dL (32.0-36.0); MEAN CORPUSCULAR VOLUME 94 fl (80-97); RED BLOOD COUNT 2.79 10^6/uL (4.35-5.55); RED CELL DISTRIBUTION WIDTH 13.6 % (11.5-14.0); WHITE BLOOD COUNT 18.7 10^3/uL (4.0-10.5)
[2016-08-31 06:07] LABS: ANION GAP 9 (5-19); BLOOD UREA NITROGEN 9 mg/dL (7-20); CARBON DIOXIDE 25 mmol/L (22-30); CHLORIDE 103 mmol/L (98-107); CREATININE RESULT 0.85 mg/dL (0.52-1.25); GLUCOSE 185 mg/dL (75-110); SODIUM 136.6 mmol/L (137-145)
[2016-08-31 06:39] LABS: BAND NEUTROPHILS % (MANUAL) 3 % (3-5); BASOPHILS % (MANUAL) 0 % (0-2); EOSINOPHILS % (MANUAL) 0 % (0-6); LYMPHOCYTES % (MANUAL) 14 % (13-45); NUCLEATED RED BLOOD CELLS 1 /100 WBC (0); TOTAL CELLS COUNTED 100
[2016-08-31 06:46] LABS: POLYCHROMASIA SLIGHT; ROULEAUX SLIGHT; TOXIC GRANULATION 1+; TOXIC VACUOLATION PRESENT
[2016-08-31 06:47] LABS: PLATELET CLUMPS PRESENT
[2016-08-31] MEDS: INSULIN LISPRO 100 UNIT/ML 3 ML VIAL SUBCUT PRN ×3 (08:03→16:32)
[2016-08-31] MEDS: METFORMIN HCL 500 MG TABLET PO SCH ×2 (08:04→16:32)
[2016-08-31] MEDS: ENOXAPARIN SODIUM INJ 40 MG/0.4 ML DISP.SYRIN SUBCUT SCH (09:28)
[2016-08-31] MEDS: NYSTATIN TOPICAL POWDER 15 GM TP SCH ×2 (09:29→18:10)
[2016-08-31] MEDS: HYDROCODONE/ACETAMINOPHEN 7.5-325 MG TABLET PO PRN ×2 (09:29→22:06)
--- NOTE | 2016-08-31 11:49 | PROGRESS NOTE E ---
Progress Note NAME: XUAN BYERS : 1965 AGE: 51Y DATE: 08/31/2016 ROOM: 530 SUBJECTIVE: The patient is post I and D by Dr. Steven for abdominal wound abscess and cellulitis. This morning he appears quite comfortable. He denies any abdominal pains. No apparent fever. His white count is trending down to 18,000. OBJECTIVE: The abdominal wall is nontender at this time and the drain sites appear to have no significant drainage. PLAN: I will leave the [place] drains for another 48-72 hours. In the meantime, continue him with IV antibiotic therapy. He has got multiple bacteria but no MRSA. DICTATING PHYSICIAN: PAZ PENALOZA M.D. [id number] PHY#: [id number] ID: [id number] JOB#: [id number] ACCT: [id number] cc: >
--- NOTE | 2016-08-31 14:40 | PDOC PROGRESS REPORT ---
Subjective Progress Note for:: 08/31/16 Subjective:: Patient seen on morning rounds. He is sitting in bedside chair. Denies significant pain. States abdomen is tender to the touch or with movement. He overall feels improved from yesterday. Denies any chest pain, shortness of breath or dyspnea. Denies any fever or chills. He denies any significant arthralgias or myalgias. Remaining review systems are negative. Physical Exam Vital Signs: Temp Pulse Resp BP Pulse Ox 98.8 F 96 18 124/63 97 08/31/16 11:19 08/31/16 11:19 08/31/16 11:19 08/31/16 11:19 08/31/16 11:19 Intake & Output 08/30/16 08/31/16 09/01/16 06:59 06:59 06:59 Intake Total 3235 2330 Output Total 1350 Balance 1885 2330 Weight 150.9 kg 151 kg General appearance: PRESENT: no acute distress, morbidly obese, well-developed, well-nourished Head exam: PRESENT: atraumatic, normocephalic Eye exam: PRESENT: conjunctiva pink, EOMI, PERRLA. ABSENT: scleral icterus Ear exam: PRESENT: normal external ear exam Mouth exam: PRESENT: moist, tongue midline Neck exam: ABSENT: carotid bruit, JVD, lymphadenopathy, thyromegaly Respiratory exam: PRESENT: clear to auscultation karmen, symmetrical, unlabored. ABSENT: rales, rhonchi, wheezes Cardiovascular exam: PRESENT: RRR. ABSENT: diastolic murmur, rubs, systolic murmur Vascular exam: PRESENT: normal capillary refill GI/Abdominal exam: PRESENT: normal bowel sounds, soft, tenderness - right lower abdomen incisional area. ABSENT: distended, guarding, mass, organolmegaly, rebound Rectal exam: PRESENT: deferred Extremities exam: PRESENT: full ROM. ABSENT: calf tenderness, clubbing, pedal edema Musculoskeletal exam: PRESENT: ambulatory, full ROM Neurological exam: PRESENT: alert, awake, oriented to person, oriented to place , oriented to time, oriented to situation, CN II-XII grossly intact Psychiatric exam: PRESENT: appropriate affect, normal mood. ABSENT: homicidal ideation, suicidal ideation Skin exam: PRESENT: dry, intact, warm. ABSENT: cyanosis, rash Results Laboratory Results: 08/31/16 04:45 08/31/16 04:45 08/31/16 08/31/16 04:45 04:45 WBC 18.7 H RBC 2.79 L Hgb 8.5 L Hct 26.1 L MCV 94 MCH 30.7 MCHC 32.7 RDW 13.6 Plt Count 344 Seg Neutrophils % Not Reportable Lymphocytes % Not Reportable Monocytes % Not Reportable Eosinophils % Not Reportable Basophils % Not Reportable Absolute Neutrophils Not Reportable Absolute Lymphocytes Not Reportable Absolute Monocytes Not Reportable Absolute Eosinophils Not Reportable Absolute Basophils Not Reportable Sodium 136.6 L Potassium 4.0 Chloride 103 Carbon Dioxide 25 Anion Gap 9 BUN 9 Creatinine 0.85 Est GFR ( Amer) > 60 Est GFR (Non-Af Amer) > 60 Glucose 185 H Calcium 8.0 L Impressions: Abdomen Ultrasound 08/26/16 00:00 IMPRESSION: NO SOFT TISSUE MASS, FLUID COLLECTION, OR FOREIGN BODY. Abdomen/Pelvis CT 08/30/16 00:00 IMPRESSION: Irregular gas collection within a panniculus overlying the pelvis to the right of midline as noted above. There are edematous or inflammatory changes in the adjacent subcutaneous fat. Drainage catheters are identified. No discrete fluid collection is identified. No other significant intra- abdominal or pelvic abnormalities were identified. Other findings as noted above. Chest X-Ray 08/30/16 00:00 IMPRESSION: NO SIGNIFICANT RADIOGRAPHIC FINDING IN THE CHEST. Assessment & Plan - Diagnosis (1) Abdominal wall abscess Is this a current diagnosis for this admission?: YesPlan: Continue local wound care per surgialist service. No significant bleeding from the wound (2) Diabetic ketoacidosis Qualifiers: Diabetes mellitus type: type 2 Diabetes mellitus complication detail: without coma Qualified Code(s): E13.10 - Other specified diabetes mellitus with ketoacidosis without coma (3) Leukocytosis Qualifiers: Leukocytosis type: bandemia Qualified Code(s): D72.825 - Bandemia Is this a current diagnosis for this admission?: YesPlan: Improving (4) Poorly controlled diabetes mellitus Is this a current diagnosis for this admission?: YesPlan: Lantus dose increased to 25 units
[2016-08-31 15:56] LABS: PATH REVIEW PATHOLOGIST REVIEWED
[2016-08-31] MEDS: INSULIN GLARGINE,HUM.REC.ANLOG 300 UNIT/3 ML INSULN.PEN SUBCUT SCH (21:31)
[2016-09-01] MEDS: PIPERACILLIN SODIUM/TAZOBACTAM 4.5 GM in NORMAL SALINE 100 ML IV SCH ×3 (05:22→17:33)
[2016-09-01 06:45] LABS: HEMATOCRIT 26.3 % (37.9-51.0); HEMOGLOBIN 8.8 g/dL (13.5-17.0); HGB HCT DIFFERENCE 0.1; MEAN CORPUSCULAR HEMOGLOBIN 31.2 pg (27.0-33.4); MEAN CORPUSCULAR HGB CONC 33.3 g/dL (32.0-36.0); MEAN CORPUSCULAR VOLUME 94 fl (80-97); RED CELL DISTRIBUTION WIDTH 13.6 % (11.5-14.0); WHITE BLOOD COUNT 15.2 10^3/uL (4.0-10.5)
[2016-09-01 06:50] LABS: ANION GAP 8 (5-19); BLOOD UREA NITROGEN 7 mg/dL (7-20); CALCIUM 7.8 mg/dL (8.4-10.2); CARBON DIOXIDE 24 mmol/L (22-30); CHLORIDE 104 mmol/L (98-107); CREATININE RESULT 0.94 mg/dL (0.52-1.25); GLUCOSE 162 mg/dL (75-110); SODIUM 136.1 mmol/L (137-145)
[2016-09-01 07:08] LABS: BASOPHILS % (MANUAL) 0 % (0-2); EOSINOPHILS % (MANUAL) 0 % (0-6); LYMPHOCYTES % (MANUAL) 15 % (13-45); TOTAL CELLS COUNTED 100
[2016-09-01 07:12] LABS: POLYCHROMASIA 1+; ROULEAUX 3+; TOXIC GRANULATION 1+; TOXIC VACUOLATION PRESENT
[2016-09-01 07:15] LABS: BAND NEUTROPHILS % (MANUAL) 11 % (3-5)
[2016-09-01] MEDS: HYDROCODONE/ACETAMINOPHEN 7.5-325 MG TABLET PO PRN ×2 (08:03→17:37)
[2016-09-01] MEDS: INSULIN LISPRO 100 UNIT/ML 3 ML VIAL SUBCUT PRN ×3 (08:03→16:14)
[2016-09-01] MEDS: METFORMIN HCL 500 MG TABLET PO SCH ×2 (08:03→16:14)
[2016-09-01] MEDS: NYSTATIN TOPICAL POWDER 15 GM TP SCH (09:26)
[2016-09-01] MEDS: ENOXAPARIN SODIUM INJ 40 MG/0.4 ML DISP.SYRIN SUBCUT SCH (09:27)
--- NOTE | 2016-09-01 10:12 | PDOC PROGRESS REPORT ---
Subjective Progress Note for:: 09/01/16 Subjective:: He reports he has less pain. He has not taken a shower. Is tolerating a diet. Physical Exam Vital Signs: Temp Pulse Resp BP Pulse Ox 98.2 F 112 H 18 141/75 H 100 09/01/16 07:51 09/01/16 07:51 09/01/16 07:51 09/01/16 07:51 09/01/16 07:51 Intake & Output 08/31/16 09/01/16 09/02/16 06:59 06:59 06:59 Intake Total 2330 2170 Balance 2330 2170 Weight 151 kg 149.1 kg General appearance: PRESENT: no acute distress GI/Abdominal exam: PRESENT: other - All dressings removed. Open debrided wounds starting to granulate. Louise drains manipulated; they are still intact. Patient still has fair amount of swelling induration to the anterior abdominal wall on the right side Results Laboratory Results: 09/01/16 05:37 09/01/16 05:37 08/30/16 09/01/16 09/01/16 04:52 05:37 05:37 WBC 22.5 H 15.2 H RBC 2.70 L 2.80 L Hgb 8.2 L 8.8 L Hct 24.9 L 26.3 L MCV 92 94 MCH 30.2 31.2 MCHC 32.8 33.3 RDW 13.7 13.6 Plt Count 328 365 Seg Neutrophils % Not Reportable Lymphocytes % Not Reportable Monocytes % Not Reportable Eosinophils % Not Reportable Basophils % Not Reportable Absolute Neutrophils Not Reportable Absolute Lymphocytes Not Reportable Absolute Monocytes Not Reportable Absolute Eosinophils Not Reportable Absolute Basophils Not Reportable Sodium 136.1 L Potassium 4.0 Chloride 104 Carbon Dioxide 24 Anion Gap 8 BUN 7 Creatinine 0.94 Est GFR ( Amer) > 60 Est GFR (Non-Af Amer) > 60 Glucose 162 H Calcium 7.8 L Impressions: Abdomen Ultrasound 08/26/16 00:00 IMPRESSION: NO SOFT TISSUE MASS, FLUID COLLECTION, OR FOREIGN BODY. Abdomen/Pelvis CT 08/30/16 00:00 IMPRESSION: Irregular gas collection within a panniculus overlying the pelvis to the right of midline as noted above. There are edematous or inflammatory changes in the adjacent subcutaneous fat. Drainage catheters are identified. No discrete fluid collection is identified. No other significant intra- abdominal or pelvic abnormalities were identified. Other findings as noted above. Chest X-Ray 08/30/16 00:00 IMPRESSION: NO SIGNIFICANT RADIOGRAPHIC FINDING IN THE CHEST. Assessment & Plan - Diagnosis (1) Abdominal wall abscess Is this a current diagnosis for this admission?: YesPlan: Assessment: Clinically improved status post operative debridement 5 days ago with drain placement. Polymicrobial anaerobic and aerobic infection Plan: Get patient in shower twice a day manipulate drains and irrigated vigorously and repack Patient will likely go home with drains in place. Anticipate discharge in the next 48 hours
[2016-09-01] MEDS: INSULIN GLARGINE,HUM.REC.ANLOG 300 UNIT/3 ML INSULN.PEN SUBCUT SCH (21:08)
[2016-09-02] MEDS: PIPERACILLIN SODIUM/TAZOBACTAM 4.5 GM in NORMAL SALINE 100 ML IV SCH ×4 (00:02→17:44)
[2016-09-02 05:29] LABS: HEMATOCRIT 23.8 % (37.9-51.0); HGB HCT DIFFERENCE -0.4; MEAN CORPUSCULAR HEMOGLOBIN 30.5 pg (27.0-33.4); MEAN CORPUSCULAR HGB CONC 32.6 g/dL (32.0-36.0); MEAN CORPUSCULAR VOLUME 93 fl (80-97); RED BLOOD COUNT 2.55 10^6/uL (4.35-5.55); RED CELL DISTRIBUTION WIDTH 13.8 % (11.5-14.0); WHITE BLOOD COUNT 15.9 10^3/uL (4.0-10.5)
[2016-09-02 05:45] LABS: ANION GAP 8 (5-19); BLOOD UREA NITROGEN 6 mg/dL (7-20); CALCIUM 7.9 mg/dL (8.4-10.2); CARBON DIOXIDE 25 mmol/L (22-30); CHLORIDE 105 mmol/L (98-107); CREATININE RESULT 0.91 mg/dL (0.52-1.25); GLUCOSE 180 mg/dL (75-110); POTASSIUM 3.8 mmol/L (3.6-5.0); SODIUM 137.5 mmol/L (137-145)
[2016-09-02 06:12] LABS: HEMOGLOBIN 7.8 g/dL (13.5-17.0)
[2016-09-02 06:18] LABS: BAND NEUTROPHILS % (MANUAL) 4 % (3-5); BASOPHILS % (MANUAL) 0 % (0-2); EOSINOPHILS % (MANUAL) 2 % (0-6); LYMPHOCYTES % (MANUAL) 18 % (13-45); TOTAL CELLS COUNTED 100
[2016-09-02 06:21] LABS: PLATELET CLUMPS PRESENT; POLYCHROMASIA SLIGHT; TARGET CELLS SLIGHT; TOXIC GRANULATION 1+; TOXIC VACUOLATION PRESENT
[2016-09-02] MEDS: METFORMIN HCL 500 MG TABLET PO SCH ×2 (09:17→15:28)
[2016-09-02] MEDS: ENOXAPARIN SODIUM INJ 40 MG/0.4 ML DISP.SYRIN SUBCUT SCH (09:17)
[2016-09-02] MEDS ORDERED: NORMAL SALINE 250 ML IV PRN ×2 (10:10)
--- NOTE | 2016-09-02 13:23 | PDOC PROGRESS REPORT ---
Subjective Progress Note for:: 09/02/16 Subjective:: Patient seen on morning rounds. He is sitting in bedside chair. Denies significant pain. States abdomen is tender to the touch or with movement. He overall feels improved. He is continuing to have serosanguinous drainage from the drain in his abdomen. Denies any chest pain, shortness of breath or dyspnea. Denies any fever or chills. He denies any significant arthralgias or myalgias. Remaining review systems are negative. Physical Exam Vital Signs: Temp Pulse Resp BP Pulse Ox 99.5 F 99 17 145/69 H 96 09/02/16 11:35 09/02/16 11:35 09/02/16 11:35 09/02/16 11:35 09/02/16 11:35 Intake & Output 09/01/16 09/02/16 09/03/16 06:59 06:59 06:59 Intake Total 2170 2710 Balance 2170 2710 Weight 149.1 kg 150.2 kg General appearance: PRESENT: no acute distress, morbidly obese Head exam: PRESENT: atraumatic, normocephalic Eye exam: PRESENT: conjunctiva pale, EOMI, PERRLA. ABSENT: scleral icterus Ear exam: PRESENT: normal external ear exam Mouth exam: PRESENT: moist, tongue midline Respiratory exam: PRESENT: clear to auscultation karmen. ABSENT: rales, rhonchi, wheezes Cardiovascular exam: PRESENT: RRR. ABSENT: diastolic murmur, rubs, systolic murmur Pulses: PRESENT: normal dorsalis pedis pul Vascular exam: PRESENT: normal capillary refill GI/Abdominal exam: PRESENT: normal bowel sounds - right lower quadrant inision dressing intact with small amount serosangunous drainage, soft, tenderness Rectal exam: PRESENT: deferred Extremities exam: PRESENT: full ROM. ABSENT: calf tenderness, clubbing, pedal edema Neurological exam: PRESENT: alert, awake, oriented to person, oriented to place , oriented to time, oriented to situation, CN II-XII grossly intact. ABSENT: motor sensory deficit Psychiatric exam: PRESENT: appropriate affect, normal mood. ABSENT: homicidal ideation, suicidal ideation Skin exam: PRESENT: other - right lower abdominal skin abcess incision and drain patent Results Laboratory Results: 09/02/16 05:06 09/02/16 05:06 07/09/02/16 09/02/16 05:06 05:06 10:18 WBC 15.9 H RBC 2.55 L Hgb 7.8 L Hct 23.8 L MCV 93 MCH 30.5 MCHC 32.6 RDW 13.8 Plt Count 365 Seg Neutrophils % Not Reportable Lymphocytes % Not Reportable Monocytes % Not Reportable Eosinophils % Not Reportable Basophils % Not Reportable Absolute Neutrophils Not Reportable Absolute Lymphocytes Not Reportable Absolute Monocytes Not Reportable Absolute Eosinophils Not Reportable Absolute Basophils Not Reportable Sodium 137.5 Potassium 3.8 Chloride 105 Carbon Dioxide 25 Anion Gap 8 BUN 6 L Creatinine 0.91 Est GFR ( Amer) > 60 Est GFR (Non-Af Amer) > 60 Glucose 180 H Calcium 7.9 L Blood Type B POSITIVE Antibody Screen NEGATIVE Impressions: Abdomen Ultrasound 08/26/16 00:00 IMPRESSION: NO SOFT TISSUE MASS, FLUID COLLECTION, OR FOREIGN BODY. Abdomen/Pelvis CT 08/30/16 00:00 IMPRESSION: Irregular gas collection within a panniculus overlying the pelvis to the right of midline as noted above. There are edematous or inflammatory changes in the adjacent subcutaneous fat. Drainage catheters are identified. No discrete fluid collection is identified. No other significant intra- abdominal or pelvic abnormalities were identified. Other findings as noted above. Chest X-Ray 08/30/16 00:00 IMPRESSION: NO SIGNIFICANT RADIOGRAPHIC FINDING IN THE CHEST. Assessment & Plan - Diagnosis (1) Abdominal wall abscess Is this a current diagnosis for this admission?: YesPlan: Continue local wound care per surgialist service. We are awaiting residential bed for discharge. Patient and son do not feel they can manage the wound with home health care only. (2) Leukocytosis Qualifiers: Leukocytosis type: bandemia Qualified Code(s): D72.825 - Bandemia Is this a current diagnosis for this admission?: YesPlan: Improving (3) Poorly controlled diabetes mellitus Is this a current diagnosis for this admission?: YesPlan: Lantus dose increased to 25 units (4) Morbid obesity Is this a current diagnosis for this admission?: Yes - Time Time Spent with patient: 25-34 minutes Critical Time spent with patient: 15-24 minutes Medications reviewed and adjusted accordingly: Yes Anticipated discharge: SNF Within: when bed available
--- NOTE | 2016-09-02 16:40 | PDOC PROGRESS REPORT ---
Subjective Progress Note for:: 09/02/16 Subjective:: He has no specific complaints. Did get up to get in the shower. Patient has had a lot of drainage from the wound Physical Exam Vital Signs: Temp Pulse Resp BP Pulse Ox 98.6 F 104 H 16 130/64 H 95 09/02/16 15:26 09/02/16 15:26 09/02/16 15:26 09/02/16 15:26 09/02/16 15:26 Intake & Output 09/01/16 09/02/16 09/03/16 06:59 06:59 06:59 Intake Total 2170 2710 750 Balance 2170 2710 750 Weight 149.1 kg 150.2 kg General appearance: PRESENT: no acute distress GI/Abdominal exam: PRESENT: other - Side of pannus examined. Has a lot of fibrinous debris and drainage despite placement of drains with drain manipulation Results Laboratory Results: 09/02/16 05:06 09/02/16 05:06 09/02/16 09/02/16 09/02/16 05:06 05:06 10:18 WBC 15.9 H RBC 2.55 L Hgb 7.8 L Hct 23.8 L MCV 93 MCH 30.5 MCHC 32.6 RDW 13.8 Plt Count 365 Seg Neutrophils % Not Reportable Lymphocytes % Not Reportable Monocytes % Not Reportable Eosinophils % Not Reportable Basophils % Not Reportable Absolute Neutrophils Not Reportable Absolute Lymphocytes Not Reportable Absolute Monocytes Not Reportable Absolute Eosinophils Not Reportable Absolute Basophils Not Reportable Sodium 137.5 Potassium 3.8 Chloride 105 Carbon Dioxide 25 Anion Gap 8 BUN 6 L Creatinine 0.91 Est GFR ( Amer) > 60 Est GFR (Non-Af Amer) > 60 Glucose 180 H Calcium 7.9 L Blood Type B POSITIVE Antibody Screen NEGATIVE Impressions: Abdomen Ultrasound 08/26/16 00:00 IMPRESSION: NO SOFT TISSUE MASS, FLUID COLLECTION, OR FOREIGN BODY. Abdomen/Pelvis CT 08/30/16 00:00 IMPRESSION: Irregular gas collection within a panniculus overlying the pelvis to the right of midline as noted above. There are edematous or inflammatory changes in the adjacent subcutaneous fat. Drainage catheters are identified. No discrete fluid collection is identified. No other significant intra- abdominal or pelvic abnormalities were identified. Other findings as noted above. Chest X-Ray 07/20/17 00:00 IMPRESSION: NO SIGNIFICANT RADIOGRAPHIC FINDING IN THE CHEST. Assessment & Plan - Diagnosis (1) Abdominal wall abscess Is this a current diagnosis for this admission?: YesPlan: . There is inadequate drainage despite previous operation with drain placement. Get back to the operating room tomorrow as he ate earlier today but apparently told the nurse he was not interested. Naturally this is going to delay his recovery. 2. I did speak with the primary care service about my concerns for additional debridement which is often part of the sequence to these complex
[2016-09-02] MEDS: INSULIN LISPRO 100 UNIT/ML 3 ML VIAL SUBCUT PRN (18:26)
[2016-09-02 21:34] LABS: HEMATOCRIT 25.9 % (37.9-51.0); HEMOGLOBIN 8.5 g/dL (13.5-17.0); HGB HCT DIFFERENCE -0.4; MEAN CORPUSCULAR HEMOGLOBIN 29.8 pg (27.0-33.4); MEAN CORPUSCULAR HGB CONC 32.7 g/dL (32.0-36.0); MEAN CORPUSCULAR VOLUME 91 fl (80-97); RED BLOOD COUNT 2.84 10^6/uL (4.35-5.55); RED CELL DISTRIBUTION WIDTH 14.8 % (11.5-14.0); WHITE BLOOD COUNT 14.9 10^3/uL (4.0-10.5)
[2016-09-02] MEDS: INSULIN GLARGINE,HUM.REC.ANLOG 300 UNIT/3 ML INSULN.PEN SUBCUT SCH (22:07)
[2016-09-03] MEDS: PIPERACILLIN SODIUM/TAZOBACTAM 4.5 GM in NORMAL SALINE 100 ML IV SCH ×3 (00:56→13:55)
[2016-09-03 05:32] LABS: HEMATOCRIT 25.5 % (37.9-51.0); HEMOGLOBIN 8.3 g/dL (13.5-17.0); HGB HCT DIFFERENCE -0.6; MEAN CORPUSCULAR HEMOGLOBIN 30.1 pg (27.0-33.4); MEAN CORPUSCULAR HGB CONC 32.7 g/dL (32.0-36.0); MEAN CORPUSCULAR VOLUME 92 fl (80-97); RED BLOOD COUNT 2.76 10^6/uL (4.35-5.55); RED CELL DISTRIBUTION WIDTH 15.1 % (11.5-14.0); WHITE BLOOD COUNT 13.2 10^3/uL (4.0-10.5)
[2016-09-03 05:55] LABS: ANION GAP 9 (5-19); BLOOD UREA NITROGEN 6 mg/dL (7-20); CARBON DIOXIDE 24 mmol/L (22-30); CHLORIDE 106 mmol/L (98-107); GLUCOSE 151 mg/dL (75-110); POTASSIUM 4.1 mmol/L (3.6-5.0); SODIUM 139.2 mmol/L (137-145)
[2016-09-03 06:00] LABS: BAND NEUTROPHILS % (MANUAL) 1 % (3-5); BASOPHILS % (MANUAL) 0 % (0-2); EOSINOPHILS % (MANUAL) 1 % (0-6); LYMPHOCYTES % (MANUAL) 14 % (13-45); NUCLEATED RED BLOOD CELLS 2 /100 WBC (0); TOTAL CELLS COUNTED 100
[2016-09-03 06:01] LABS: ANISOCYTOSIS 1+; POLYCHROMASIA SLIGHT
[2016-09-03] MEDS: METFORMIN HCL 500 MG TABLET PO SCH ×2 (08:47→15:17)
[2016-09-03] MEDS: ENOXAPARIN SODIUM INJ 40 MG/0.4 ML DISP.SYRIN SUBCUT SCH (09:53)
[2016-09-03] MEDS ORDERED: BUPIVACAINE HCL 0.5%-EPI 1:200000 INJ/PF 30 ML VIAL ONE (09:56)
[2016-09-03] MEDS ORDERED: FENTANYL CITRATE INJ/PF 250 MCG/5 ML AMPULE ONE (10:40)
[2016-09-03] MEDS ORDERED: EPHEDRINE SULFATE INJ 50 MG/1 ML AMPULE ONE (10:41)
[2016-09-03] MEDS ORDERED: FENTANYL CITRATE INJ/PF 100 MCG/2 ML AMPUL ONE (10:41)
[2016-09-03] MEDS ORDERED: MIDAZOLAM 2 MG/2 ML INJ ONE (10:41)
[2016-09-03] MEDS ORDERED: PROPOFOL INJ 200 MG/20 ML VIAL IV ONE (10:42)
[2016-09-03] MEDS ORDERED: IBUPROFEN INJ 800 MG/8 ML VIAL IV ONE (10:42)
[2016-09-03] MEDS ORDERED: ACETAMINOPHEN 0 ML IV ONE (10:42)
[2016-09-03] MEDS ORDERED: ONDANSETRON HCL INJ/PF 4 MG/2 ML SDV ONE (11:19)
[2016-09-03] MEDS ORDERED: LIDOCAINE 2% INJ-PF (20 MG/ML) 10 ML AMPUL ONE (11:19)
[2016-09-03] MEDS ORDERED: NEOSTIGMINE METHYLSULFATE 10 MG/10 ML VIAL ONE (11:19)
[2016-09-03] MEDS ORDERED: VECURONIUM BROMIDE INJ 10 MG VIAL IV ONE (11:19)
[2016-09-03] MEDS ORDERED: GLYCOPYRROLATE INJ 0.4 MG/2 ML VIAL ONE (11:19)
[2016-09-03] MEDS ORDERED: SUCCINYLCHOLINE CHLORIDE INJ 200 MG/10 ML VIAL ONE (11:19)
[2016-09-03] MEDS ORDERED: FENTANYL CITRATE INJ/PF 100 MCG/2 ML AMPUL IV PRN ×3 (13:33)
[2016-09-03] MEDS: NORMAL SALINE 250 ML IV PRN ×6 (13:50→13:56)
--- NOTE | 2016-09-03 13:57 | Operative Report ---
Operative Report DATE OF SURGERY: 08/27/16 PREOPERATIVE DIAGNOSIS: Panniculitis abdominal wall abscess POSTOPERATIVE DIAGNOSIS: same. deep subcutaneous infection OPERATION: Sharp debridement of anterior abdominal wall skin and subcutaneous tissue with final defect 26 x 7 cm SURGEON: CT MONTEZ ANESTHESIA: Local TISSUE REMOVED OR ALTERED: skin and subcutaneous fat COMPLICATIONS: none ESTIMATED BLOOD LOSS: 650 INTRAOPERATIVE FINDINGS: large area of necrotic subcutaneous fat with final debroided area of 26 x 7 cm PROCEDURE: see dictation
[2016-09-03] MEDS ORDERED: NORMAL SALINE 1000 ML 1,000 ML IV PRN (13:58)
[2016-09-03] MEDS: FENTANYL CITRATE INJ/PF 100 MCG/2 ML AMPUL ONE ×2 (14:09→14:17)
[2016-09-03] MEDS ORDERED: HYDROMORPHONE HCL INJ/PF 2 MG/ML AMPULE ONE (14:36)
--- NOTE | 2016-09-03 16:06 | PDOC PROGRESS REPORT ---
Subjective Progress Note for:: 09/03/16 Subjective:: Patient seen on morning rounds. He is going back to the OR for further debridement today. States abdomen is tender to the touch or with movement. He overall feels improved. He is continuing to have serosanguinous drainage from the drain in his abdomen. Denies any chest pain, shortness of breath or dyspnea. Denies any fever or chills. He denies any significant arthralgias or myalgias. Remaining review systems are negative. Physical Exam Vital Signs: Temp Pulse Resp BP Pulse Ox 99.1 F 77 16 132/63 H 99 09/03/16 10:18 09/03/16 10:18 09/03/16 10:18 09/03/16 10:18 09/03/16 10:18 Intake & Output 09/02/16 09/03/16 09/04/16 06:59 06:59 06:59 Intake Total 2710 2300 3000 Output Total 400 3000 Balance 2710 1900 0 Weight 150.2 kg 150.4 kg General appearance: PRESENT: no acute distress, morbidly obese, well-developed, well-nourished Head exam: PRESENT: atraumatic, normocephalic Eye exam: PRESENT: conjunctiva pink, EOMI, PERRLA. ABSENT: scleral icterus Ear exam: PRESENT: normal external ear exam Mouth exam: PRESENT: moist, tongue midline Neck exam: ABSENT: carotid bruit, JVD, lymphadenopathy, thyromegaly Respiratory exam: PRESENT: clear to auscultation karmen. ABSENT: rales, rhonchi, wheezes Cardiovascular exam: PRESENT: RRR. ABSENT: diastolic murmur, rubs, systolic murmur Pulses: PRESENT: normal dorsalis pedis pul Vascular exam: PRESENT: normal capillary refill GI/Abdominal exam: PRESENT: normal bowel sounds - right lower abdominal incisions, soft, tenderness Rectal exam: PRESENT: deferred Extremities exam: PRESENT: full ROM. ABSENT: calf tenderness, clubbing, pedal edema Neurological exam: PRESENT: alert, awake, oriented to person, oriented to place , oriented to time, oriented to situation, CN II-XII grossly intact. ABSENT: motor sensory deficit Psychiatric exam: PRESENT: appropriate affect, normal mood. ABSENT: homicidal ideation, suicidal ideation Skin exam: PRESENT: dry, intact, warm. ABSENT: cyanosis, rash Results Laboratory Results: 09/03/16 05:03 09/03/16 05:03 08/29/16 09/02/16 09/02/16 06:42 10:18 21:15 WBC 14.9 H RBC 2.84 L Hgb 8.5 L Hct 25.9 L MCV 91 MCH 29.8 MCHC 32.7 RDW 14.8 H Plt Count 378 Seg Neutrophils % Lymphocytes % Monocytes % Eosinophils % Basophils % Absolute Neutrophils Absolute Lymphocytes Absolute Monocytes Absolute Eosinophils Absolute Basophils Sodium Potassium Chloride Carbon Dioxide Anion Gap BUN Creatinine Est GFR ( Amer) Est GFR (Non-Af Amer) Glucose Calcium Blood Type B POSITIVE B POSITIVE Antibody Screen NEGATIVE NEGATIVE 09/03/16 09/03/16 05:03 05:03 WBC 13.2 H RBC 2.76 L Hgb 8.3 L Hct 25.5 L MCV 92 MCH 30.1 MCHC 32.7 RDW 15.1 H Plt Count 374 Seg Neutrophils % Not Reportable Lymphocytes % Not Reportable Monocytes % Not Reportable Eosinophils % Not Reportable Basophils % Not Reportable Absolute Neutrophils Not Reportable Absolute Lymphocytes Not Reportable Absolute Monocytes Not Reportable Absolute Eosinophils Not Reportable Absolute Basophils Not Reportable Sodium 139.2 Potassium 4.1 Chloride 106 Carbon Dioxide 24 Anion Gap 9 BUN 6 L Creatinine 1.00 Est GFR ( Amer) > 60 Est GFR (Non-Af Amer) > 60 Glucose 151 H Calcium 8.0 L Blood Type Antibody Screen 08/27/16 13:25 Abdomen - Abscess Gram Stain - Final 08/27/16 13:25 Abdomen - Abscess Wound Culture - Final Strep Anginosus Group Peptostreptococcus Species Impressions: Abdomen Ultrasound 08/26/16 00:00 IMPRESSION: NO SOFT TISSUE MASS, FLUID COLLECTION, OR FOREIGN BODY. Abdomen/Pelvis CT 08/30/16 00:00 IMPRESSION: Irregular gas collection within a panniculus overlying the pelvis to the right of midline as noted above. There are edematous or inflammatory changes in the adjacent subcutaneous fat. Drainage catheters are identified. No discrete fluid collection is identified. No other significant intra- abdominal or pelvic abnormalities were identified. Other findings as noted above. Chest X-Ray 08/30/16 00:00 IMPRESSION: NO SIGNIFICANT RADIOGRAPHIC FINDING IN THE CHEST. Assessment & Plan - Diagnosis (1) Abdominal wall abscess Is this a current diagnosis for this admission?: YesPlan: Patient is returning to OR today for further debridement (2) Leukocytosis Qualifiers: Leukocytosis type: bandemia Qualified Code(s): D72.825 - Bandemia Is this a current diagnosis for this admission?: YesPlan: Improving (3) Poorly controlled diabetes mellitus Is this a current diagnosis for this admission?: YesPlan: Lantus dose increased to 25 units (4) Morbid obesity Is this a current diagnosis for this admission?: Yes - Time Time Spent with patient: 25-34 minutes Critical Time spent with patient: 15-24 minutes Medications reviewed and adjusted accordingly: Yes
--- NOTE | 2016-09-03 16:48 | OPERATIVE REPORT E ---
Operative Report NAME: XUAN BYERS : 1965 AGE: 51Y DATE OF SURGERY: 09/03/2016 ROOM: 530 PREOPERATIVE DIAGNOSES: 1. SEVERE CELLULITIS, RIGHT LOWER QUADRANT ABDOMINAL PANNUS. 2. MORBID OBESITY. 3. STATUS POST INCISION AND DRAINAGE OF RIGHT LOWER QUADRANT ABDOMINAL PANNUS ABSCESS. POSTOPERATIVE DIAGNOSES: 1. SEVERE CELLULITIS, RIGHT LOWER QUADRANT ABDOMINAL PANNUS. 2. MORBID OBESITY. 3. STATUS POST INCISION AND DRAINAGE OF RIGHT LOWER QUADRANT ABDOMINAL PANNUS ABSCESS. OPERATION: Wide excision and draining to right lower quadrant abdominal pannus down to fat, sharp with defect measuring 26 x 7 cm. SURGEON: CT MONTEZ M.D. SUPERVISOR CIGAR PROCESSING: None. BLEEDIN mL. FLUIDS: 1600. ANESTHESIA: General plus 30 mL of 0.5% Marcaine with epinephrine. COMPLICATIONS: None. DRAINS: None. INDICATION AND FINDINGS: This is a morbid obese 51-year-old male with diabetes who presented on 08/30/2016, with abdominal pain in the right lower quadrant, swelling and redness of the right lower quadrant abdominal wall pannus and found to have an abscess. He underwent debridement about 7 days ago with incision and drainage and multiple pannus drainage placement by Dr. Steven. However, there has been no improvement in the patient's general condition with still pain, white blood cell count elevation, and drainage together with induration of the right lower quadrant pannus area. A decision was made to take the patient back to surgery to undergo wide excision of the affected abdominal wall/pannus. DESCRIPTION OF PROCEDURE: It was done in the operating room. The patient placed in supine position. General anesthesia induced by endotracheal intubation. Abdomen was prepped and draped in the usual fashion. Two semi-circular incisions were made above and below the area of maximum duration of the right lower quadrant abdominal wall pannus. These were done to include the previous areas of incision and drainage. The dissection was then continued from the skin down through the entire fatty tissue until good bleeding healthy tissue was encountered. This was then taken down to almost the fascia but the fascia was not visualized. The dissection was done circumferentially. To decrease the blood loss, multiple packs were utilized to apply pressure to the blood vessels which were suture ligated with 2-0 silk sutures. When the entire specimen was removed, tissue was sent to the microbiology lab for culture, aerobic and anaerobic, Gram stain, AFB staining and for final culture. The bed was irrigated with 3 L of warm normal saline, all the bleeders were cauterized and/or suture ligated. After this, 3 large wound VAC sponges were applied in the wound followed by large pieces of Adaptic and the suction vent was applied in the middle of the wound following an opening in the Adaptic. It was connected to the suction machine with good negative suction and no leak. The patient tolerated procedure well and was transferred to the recovery room. In the meantime, the patient will be given 2 units of blood by the anesthesiologist because of the blood loss. DICTATING PHYSICIAN: CT MONTEZ M.D. [id number] PHY#: [id number] ID: [id number] JOB#: [id number] ACCT: [id number] cc:CT MONTEZ M.D. > MTDD
[2016-09-03] MEDS: INSULIN LISPRO 100 UNIT/ML 3 ML VIAL SUBCUT PRN ×2 (17:58→22:29)
[2016-09-03] MEDS: MORPHINE SULFATE 10 MG/ML INJ IV PRN (20:37)
[2016-09-03] MEDS: INSULIN GLARGINE,HUM.REC.ANLOG 300 UNIT/3 ML INSULN.PEN SUBCUT SCH (22:29)
[2016-09-03 23:57] LABS: HEMATOCRIT 25.4 % (37.9-51.0); HEMOGLOBIN 8.5 g/dL (13.5-17.0); HGB HCT DIFFERENCE 0.1; MEAN CORPUSCULAR HEMOGLOBIN 29.8 pg (27.0-33.4); MEAN CORPUSCULAR HGB CONC 33.4 g/dL (32.0-36.0); MEAN CORPUSCULAR VOLUME 89 fl (80-97); RED BLOOD COUNT 2.84 10^6/uL (4.35-5.55); RED CELL DISTRIBUTION WIDTH 15.8 % (11.5-14.0); WHITE BLOOD COUNT 13.5 10^3/uL (4.0-10.5)
[2016-09-04] MEDS: MORPHINE SULFATE 10 MG/ML INJ IV PRN (02:13)
--- NOTE | 2016-09-04 09:14 | PROGRESS NOTE E ---
Progress Note NAME: XUAN BYERS : 1965 AGE: 51Y DATE: 09/04/2016 ROOM: 530 SUBJECTIVE: The patient is currently out of bed to the bedside chair. He states he feels much better than when he came in and better than he did yesterday afternoon. The patient still admits to some abdominal pain. The patient denies any nausea or vomiting. No diarrhea, shortness of breath, dizziness. No fevers, chills. The patient has been afebrile. His blood pressures have been a little elevated, and the patient does not voice any other concerns at this time. REVIEW OF SYSTEMS: The rest of the review of systems is negative. MEDICATIONS: Medications have been reviewed. OBJECTIVE: GENERAL: The patient is a 51-year-old -Citizen Of [place] male who is awake, alert, and oriented to person, place, time, and situation. He is verbal, conversational. He does not appear to be in any acute distress. VITAL SIGNS: As follows: Temperature is 99.2, pulse 97, respirations 19, blood pressure 150/73, oxygen saturation is 98% on room air. SKIN: Warm and dry. There is no rash and he is not diaphoretic. HEENT: Pupils are equal, round and reactive to light and accommodation. Conjunctivae are pink. No JVP. CARDIOVASCULAR: Heart is regular with no murmur or rub. CHEST: Clear, symmetrical, unlabored. ABDOMEN: Soft, nontender, nondistended. Wound VAC in place. EXTREMITIES: No clubbing, cyanosis, edema. PSYCHIATRIC: Appropriate affect, pleasant mood. DIAGNOSTICS: Lab values are as follows. Hematology obtained on 09/03/2016: WBCs are 13.5, hemoglobin is 9.5, hematocrit is 25.4, platelet count is 354,000. Chemistry obtained on 09/03/2016: Sodium is 139, potassium 4.1, chloride 106, carbon dioxide 24, BUN 6, creatinine 1, glucose 151, calcium is 8. Microbiology: Wound culture obtained on 09/03/2016 is pending. IMPRESSION AND PLAN: 1. GROUP B STREPTOCOCCUS CELLULITIS OF THE WOUND. The patient did go back to the OR yesterday. He currently has a wound VAC in place. Currently awaiting repeat cultures. Pending findings, will determine antibiotic route from there and will discuss with Infectious Disease at [facility]. 2. HYPEROSMOLAR HYPERGLYCEMIC STATE. The patient is much improved with his uncontrolled diabetes mellitus type 2. Will continue his maximized metformin as well as his insulin doses and follow. 3. HYPERTENSION. Blood pressures have been slightly elevated. Will start a low-dose LING. 4. MORBID OBESITY. Will encourage weight reduction. 5. SEPSIS PRESENT ON ADMISSION SECONDARY TO THE ABOVE. The patient's white count still does remain somewhat elevated but overall he is much improved. 6. DVT PROPHYLAXIS. Will continue subcutaneous heparin. DISPOSITION: THE PATIENT IS A FULL CODE. Pending the patient's symptomatology and diagnostic findings, will re-evaluate in the a.m. Time spent on this followup, including assessment/plan, physical examination, and patient education, is 20 minutes. DICTATING PHYSICIAN: FIDE MORALES NP [id number] PHY#: [id number] ID: [id number] JOB#: [id number] ACCT: [id number] cc: >
[2016-09-04] MEDS: METFORMIN HCL 500 MG TABLET PO SCH ×2 (11:41→17:34)
[2016-09-04] MEDS: LISINOPRIL 10 MG TABLET PO SCH (11:41)
[2016-09-04] MEDS: HEPARIN SOD (PORCINE) 5,000 UNIT/ML 1 ML SYRINGE SUBCUT SCH ×2 (11:41→22:07)
[2016-09-04] MEDS: INSULIN LISPRO 100 UNIT/ML 3 ML VIAL SUBCUT PRN ×2 (17:34→22:07)
--- NOTE | 2016-09-04 18:24 | PDOC PROGRESS REPORT ---
Subjective Progress Note for:: 09/04/16 Subjective:: patient is comfortable, reports no abdominal pannus pain Physical Exam Vital Signs: Temp Pulse Resp BP Pulse Ox 98.1 F 116 H 19 106/52 L 98 09/04/16 15:50 09/04/16 15:50 09/04/16 15:50 09/04/16 15:50 09/04/16 15:50 Intake & Output 09/03/16 09/04/16 09/05/16 06:59 06:59 06:59 Intake Total 2300 7085 1180 Output Total 400 4450 Balance 1900 2635 1180 Weight 150.4 kg 150.6 kg Skin exam: PRESENT: other - abdominal pannus soft at surgical site, woundvac in place, mo cellulitis, no odor, no pain on palpation Results Laboratory Results: 09/03/16 23:51 09/03/16 05:03 09/01/16 09/02/16 09/03/16 05:37 10:18 23:51 WBC 15.2 H 13.5 H RBC 2.80 L 2.84 L Hgb 8.8 L 8.5 L Hct 26.3 L 25.4 L MCV 94 89 MCH 31.2 29.8 MCHC 33.3 33.4 RDW 13.6 15.8 H Plt Count 365 359 Blood Type B POSITIVE Antibody Screen NEGATIVE Impressions: Abdomen Ultrasound 08/26/16 00:00 IMPRESSION: NO SOFT TISSUE MASS, FLUID COLLECTION, OR FOREIGN BODY. Abdomen/Pelvis CT 08/30/16 00:00 IMPRESSION: Irregular gas collection within a panniculus overlying the pelvis to the right of midline as noted above. There are edematous or inflammatory changes in the adjacent subcutaneous fat. Drainage catheters are identified. No discrete fluid collection is identified. No other significant intra- abdominal or pelvic abnormalities were identified. Other findings as noted above. Chest X-Ray 08/30/16 00:00 IMPRESSION: NO SIGNIFICANT RADIOGRAPHIC FINDING IN THE CHEST. Assessment & Plan - Diagnosis (1) Abdominal wall abscess Is this a current diagnosis for this admission?: Yes - Plan Summary Plan Summary: A/ POD#1 afte full thickness debridment of abdominal pannus infected site Cx pending Plan: Woundvac care Follow cx results blood work tomorrow (CBC, BMP) discharge and placement in a few days
[2016-09-04] MEDS: INSULIN GLARGINE,HUM.REC.ANLOG 300 UNIT/3 ML INSULN.PEN SUBCUT SCH (22:07)
[2016-09-05 04:47] LABS: HEMATOCRIT 23.2 % (37.9-51.0); HGB HCT DIFFERENCE -0.1; MEAN CORPUSCULAR HEMOGLOBIN 29.7 pg (27.0-33.4); MEAN CORPUSCULAR VOLUME 90 fl (80-97); RED BLOOD COUNT 2.58 10^6/uL (4.35-5.55); RED CELL DISTRIBUTION WIDTH 15.8 % (11.5-14.0)
[2016-09-05 04:54] LABS: HEMOGLOBIN 7.7 g/dL (13.5-17.0)
[2016-09-05 05:08] LABS: ANION GAP 7 (5-19); BLOOD UREA NITROGEN 6 mg/dL (7-20); CALCIUM 7.8 mg/dL (8.4-10.2); CARBON DIOXIDE 25 mmol/L (22-30); CHLORIDE 107 mmol/L (98-107); CREATININE RESULT 0.98 mg/dL (0.52-1.25); GLUCOSE 110 mg/dL (75-110); MAGNESIUM 2.3 mg/dL (1.6-2.3); SODIUM 138.5 mmol/L (137-145)
[2016-09-05] MEDS: METFORMIN HCL 500 MG TABLET PO SCH ×2 (07:54→16:28)
[2016-09-05] MEDS: LISINOPRIL 10 MG TABLET PO SCH (09:22)
[2016-09-05] MEDS: HEPARIN SOD (PORCINE) 5,000 UNIT/ML 1 ML SYRINGE SUBCUT SCH ×2 (09:25→22:32)
[2016-09-05] MEDS ORDERED: HYDROCODONE/ACETAMINOPHEN 5-325 MG TABLET PO PRN (10:47)
[2016-09-05] MEDS ORDERED: ACETAMINOPHEN 325 MG TABLET PO PRN (10:54)
--- NOTE | 2016-09-05 10:54 | PDOC PROGRESS REPORT ---
Subjective Progress Note for:: 09/05/16 Subjective:: patient is comfortable, reports no abdominal pannus pain Physical Exam Vital Signs: Temp Pulse Resp BP Pulse Ox 98.7 F 102 H 18 122/69 98 09/05/16 07:20 09/05/16 07:20 09/05/16 07:20 09/05/16 07:20 09/05/16 07:20 Intake & Output 09/04/16 09/05/16 09/06/16 06:59 06:59 06:59 Intake Total 7085 2320 Output Total 4450 Balance 2635 2320 Weight 150.6 kg 148.1 kg Skin exam: PRESENT: other - Right lower surgical site at pannus soft, WoundVac in place, no odor, drainage, or cellulitis; no pain on palpation Results Laboratory Results: 09/05/16 03:53 09/05/16 03:53 09/01/16 09/05/16 09/05/16 05:37 03:53 03:53 WBC 15.2 H 14.0 H RBC 2.80 L 2.58 L Hgb 8.8 L 7.7 L Hct 26.3 L 23.2 L MCV 94 90 MCH 31.2 29.7 MCHC 33.3 33.0 RDW 13.6 15.8 H Plt Count 365 333 Sodium 138.5 Potassium 4.0 Chloride 107 Carbon Dioxide 25 Anion Gap 7 BUN 6 L Creatinine 0.98 Est GFR ( Amer) > 60 Est GFR (Non-Af Amer) > 60 Glucose 110 Calcium 7.8 L Magnesium 2.3 Impressions: Abdomen Ultrasound 08/26/16 00:00 IMPRESSION: NO SOFT TISSUE MASS, FLUID COLLECTION, OR FOREIGN BODY. Abdomen/Pelvis CT 08/30/16 00:00 IMPRESSION: Irregular gas collection within a panniculus overlying the pelvis to the right of midline as noted above. There are edematous or inflammatory changes in the adjacent subcutaneous fat. Drainage catheters are identified. No discrete fluid collection is identified. No other significant intra- abdominal or pelvic abnormalities were identified. Other findings as noted above. Chest X-Ray 08/30/16 00:00 IMPRESSION: NO SIGNIFICANT RADIOGRAPHIC FINDING IN THE CHEST. Assessment & Plan - Diagnosis (1) Abdominal wall abscess Is this a current diagnosis for this admission?: Yes - Plan Summary Plan Summary: A/ POD#2 after full thickness debridment abdominal wall abscess site with significant amount of fat necrosis patient comfortable WBC 14 Plan: continue Zosyn start Diflucan IVPB as gram stain reports from 09/03/16 shows ora stop IV narcotics patient is waiting for transfer to rehabilitation facility in the next few days
[2016-09-05] MEDS ORDERED: FLUCONAZOLE 400 MG/NS RTU 400 MG/200 ML RTUPB IV ONE (11:00)
[2016-09-05] MEDS: PIPERACILLIN SODIUM/TAZOBACTAM 4.5 GM in NORMAL SALINE 100 ML IV SCH ×3 (12:52→23:01)
[2016-09-05] MEDS ORDERED: TRAMADOL HCL 50 MG TABLET PO PRN (14:47)
--- NOTE | 2016-09-05 15:14 | PROGRESS NOTE E ---
Progress Note NAME: XUAN BYERS : 1965 AGE: 51Y DATE: 09/05/2016 ROOM: 530 SUBJECTIVE: The patient is out of bed to the bedside chair. He states that he is feeling better every day He denies any nausea, vomiting, diarrhea. No shortness of breath, dizziness, chest pain. No fevers, chills. Patient has had a significant amount of output in his wound VAC and the patient does not voice any other concerns at this time. REVIEW OF SYSTEMS: Rest of review of systems negative. MEDICATIONS: Medications have been reviewed. OBJECTIVE: GENERAL: The patient is a 51-year-old male who is awake, alert, and oriented to person, place, time, situation. Is verbal, conversational. Does not appear to be in acute distress. VITAL SIGNS: As follows: Temperature 98.5. Pulse 105. Respirations 18. Blood pressure 130/73. Oxygen saturation 99% on room air. SKIN: Warm and dry. No rashes. Not diaphoretic. HEENT: Pupils equal round, reactive to light and accommodation. Conjunctivae pink. No JVD. CARDIOVASCULAR: Heart is regular; is no murmur or rub. CHEST: Clear to clear, symmetrical, unlabored. ABDOMEN: Is soft, nontender, nondistended. BACK: No CVA tenderness, sacral edema. EXTREMITIES: No clubbing, cyanosis, edema. PSYCHIATRIC: Appropriate affect. DIAGNOSTICS: Lab values are as follows: Hematology obtained on 09/05/2016: WBCs are 14.0, hemoglobin is 9.7, hematocrit is 28.2, platelet count is 333,000. Chemistry obtained on 09/05/2016: Sodium is 138, potassium 4.0, chloride is 107, carbon dioxide is 25, BUN 6, creatinine is 0.98, glucose 110 calcium is 10.8, magnesium is 2.3. IMPRESSION AND PLAN: 1. GROUP B STREPTOCOCCUS CELLULITIS OF THE WOUND. The patient went back to the OR on 09/03/2016. Currently has a wound VAC in place. Currently awaiting wound culture. Patient's symptoms overall have improved. Will continue antibiotic coverage and follow. 2. HYPEROSMOLAR HYPERGLYCEMIC STATE; MUCH IMPROVED. THIS WAS DUE TO UNCONTROLLED DIABETES MELLITUS, TYPE 2. The patient's blood sugars were a little low this morning, so we will decrease evening basal insulin and follow. 3. HYPERTENSION. BLOOD PRESSURES HAVE BEEN ELEVATED. Will continue him on low-dose LING. 4. MORBID OBESITY. Will encourage weight reduction. 5. SEPSIS, PRESENT ON ADMISSION SECONDARY TO THE ABOVE. White count does remain elevated, but overall the patient's symptoms have improved. 6. DVT PROPHYLAXIS. Will continue subcu heparin. DISPOSITION: The patient is a FULL CODE. Pending patient's symptomatology and diagnostic findings, will re-evaluate in the a.m. for discharge. The patient is awaiting for a rehab bed. TIME SPENT ON THIS FOLLOWUP: Including assessment, plan, physical examination, patient education, is 25 minutes. IMPRESSION AND PLAN: DISPOSITION: Time spent OBJECTIVE: @ ASSESSMENT: @ PLAN: @ DICTATING PHYSICIAN: FIDE MORALES NP [id number] PHY#: [id number] ID: [id number] JOB#: [id number] ACCT: [id number] cc: >
[2016-09-05] MEDS: INSULIN LISPRO 100 UNIT/ML 3 ML VIAL SUBCUT PRN (16:49)
[2016-09-05] MEDS: INSULIN GLARGINE,HUM.REC.ANLOG 300 UNIT/3 ML INSULN.PEN SUBCUT SCH (22:58)
[2016-09-06 04:30] LABS: ABSOLUTE BASOPHILS # (AUTO) 0.1 10^3/uL (0.0-0.2); ABSOLUTE EOSINOPHILS # (AUTO) 0.2 10^3/uL (0.0-0.6); ABSOLUTE LYMPHOCYTES (AUTO) 1.7 10^3/uL (0.5-4.7); ABSOLUTE NEUT (AUTO) 8.6 10^3/uL (1.7-8.2); BASOPHILS % (AUTO) 0.5 % (0-2); EOSINOPHILS % (AUTO) 1.4 % (0-6); HEMATOCRIT 22.9 % (37.9-51.0); HGB HCT DIFFERENCE -0.1; LYMPHOCYTES % (AUTO) 14.8 % (13-45); MEAN CORPUSCULAR HEMOGLOBIN 30.1 pg (27.0-33.4); MEAN CORPUSCULAR HGB CONC 33.3 g/dL (32.0-36.0); MEAN CORPUSCULAR VOLUME 90 fl (80-97); MONOCYTES % (AUTO) 8.6 % (3-13); RED BLOOD COUNT 2.53 10^6/uL (4.35-5.55); RED CELL DISTRIBUTION WIDTH 15.7 % (11.5-14.0); SEGMENTED NEUTROPHILS % (AUTO) 74.7 % (42-78); WHITE BLOOD COUNT 11.6 10^3/uL (4.0-10.5)
[2016-09-06 04:36] LABS: ANION GAP 8 (5-19); BLOOD UREA NITROGEN 6 mg/dL (7-20); CARBON DIOXIDE 25 mmol/L (22-30); CHLORIDE 107 mmol/L (98-107); CREATININE RESULT 0.97 mg/dL (0.52-1.25); GLUCOSE 173 mg/dL (75-110); POTASSIUM 3.9 mmol/L (3.6-5.0); SODIUM 139.7 mmol/L (137-145)
[2016-09-06 04:41] LABS: HEMOGLOBIN 7.6 g/dL (13.5-17.0)
[2016-09-06] MEDS: PIPERACILLIN SODIUM/TAZOBACTAM 4.5 GM in NORMAL SALINE 100 ML IV SCH ×4 (05:44→23:19)
--- NOTE | 2016-09-06 08:18 | PDOC PROGRESS REPORT ---
Subjective Progress Note for:: 09/06/16 Subjective:: No complaints Physical Exam Vital Signs: Temp Pulse Resp BP Pulse Ox 98.3 F 91 18 134/73 H 96 09/06/16 07:10 09/06/16 07:10 09/06/16 07:10 09/06/16 07:10 09/06/16 07:10 Intake & Output 09/05/16 09/06/16 09/07/16 06:59 06:59 06:59 Intake Total 2320 3230 Balance 2320 3230 Weight 148.1 kg 148.2 kg General appearance: PRESENT: no acute distress, cooperative GI/Abdominal exam: PRESENT: other - Abdominal wound large but very clean no necrotic debris no purulent drainage no bleeding. Results Laboratory Results: 09/06/16 03:55 09/06/16 03:55 09/06/16 09/06/16 09/06/16 03:55 03:55 05:28 WBC 11.6 H RBC 2.53 L Hgb 7.6 L Hct 22.9 L MCV 90 MCH 30.1 MCHC 33.3 RDW 15.7 H Plt Count 362 Seg Neutrophils % 74.7 Lymphocytes % 14.8 Monocytes % 8.6 Eosinophils % 1.4 Basophils % 0.5 Absolute Neutrophils 8.6 H Absolute Lymphocytes 1.7 Absolute Monocytes 1.0 Absolute Eosinophils 0.2 Absolute Basophils 0.1 Sodium 139.7 Potassium 3.9 Chloride 107 Carbon Dioxide 25 Anion Gap 8 BUN 6 L Creatinine 0.97 Est GFR ( Amer) > 60 Est GFR (Non-Af Amer) > 60 Glucose 173 H Calcium 8.0 L Blood Type B POSITIVE Antibody Screen NEGATIVE Impressions: Abdomen Ultrasound 08/26/16 00:00 IMPRESSION: NO SOFT TISSUE MASS, FLUID COLLECTION, OR FOREIGN BODY. Abdomen/Pelvis CT 08/30/16 00:00 IMPRESSION: Irregular gas collection within a panniculus overlying the pelvis to the right of midline as noted above. There are edematous or inflammatory changes in the adjacent subcutaneous fat. Drainage catheters are identified. No discrete fluid collection is identified. No other significant intra- abdominal or pelvic abnormalities were identified. Other findings as noted above. Chest X-Ray 08/30/16 00:00 IMPRESSION: NO SIGNIFICANT RADIOGRAPHIC FINDING IN THE CHEST. Assessment & Plan - Diagnosis (1) Abdominal wall abscess Is this a current diagnosis for this admission?: YesPlan: Status post excisional debridement. Wound looks very clean. Will reapply wound VAC. No evidence of bleeding. No necrotic debris. (2) Anemia Is this a current diagnosis for this admission?: YesPlan: Chronic anemia. Superimposed on acute intraoperative blood loss. No evidence of active bleeding. The wound VAC is not aspirating any blood. And the wound looks clean with excellent hemostasis. Patient will need upper and lower endoscopy as an outpatient to evaluate his anemia. Recommend referral to gastroenterology as an outpatient. Pending blood transfusions today.
[2016-09-06] MEDS: METFORMIN HCL 500 MG TABLET PO SCH ×2 (09:12→16:20)
[2016-09-06] MEDS: LISINOPRIL 10 MG TABLET PO SCH (09:12)
[2016-09-06] MEDS: FLUCONAZOLE 200 MG/NS RTU 100 ML IV SCH (09:13)
[2016-09-06] MEDS: HEPARIN SOD (PORCINE) 5,000 UNIT/ML 1 ML SYRINGE SUBCUT SCH ×2 (09:13→21:33)
--- NOTE | 2016-09-06 09:59 | PROGRESS NOTE E ---
Progress Note NAME: XUAN BYERS : 1965 AGE: 51Y DATE: 09/06/2016 ROOM: 530 SUBJECTIVE: The patient is currently lying in bed. He is receiving a blood transfusion. The patient's blood count has continued to drift down. The patient has been seen by Surgery today and appears to be making progress with his wound. Wound VAC has been changed and reapplied. There have been no reported episodes of vomiting nor diarrhea. Unfortunately, it appears that the patient's insurance benefits will not cover SNF placement. Patient does feel that going home with home health may be an option, therefore, we will consult social work for this. The patient denies any nausea, vomiting, diarrhea. No shortness of breath, dizziness, chest pain. No fevers, chills. Patient has been afebrile. His blood pressures have been in a good range. The patient does not voice any other concerns at this time. REVIEW OF SYSTEMS: Rest of review of systems negative. MEDICATIONS: Medications have been reviewed. OBJECTIVE: GENERAL: The patient is a 51-year-old male who is awake, alert, and oriented to person, place, time, situation. He is verbal, conversational, ambulatory. Does not appear to be in acute distress. VITAL SIGNS: As follows: Temperature 98.0. Pulse 85. Respirations 18. Blood pressure 133/63. Oxygen saturation 99% on room air. SKIN: Warm and dry. No rashes. Not diaphoretic. HEENT: Pupils equal round, reactive to light and accommodation. Conjunctivae pink. No JVP. HEART: Regular with no murmur or rub. CHEST: Clear to clear, symmetrical, unlabored. ABDOMEN: Soft, nontender, nondistended. Wound VAC is in place. EXTREMITIES: No clubbing, cyanosis, edema. PSYCHIATRIC: Appropriate affect, pleasant mood. DIAGNOSTICS: Lab values are as follows: Hematology obtained on 09/06/2016: WBCs 11.6, hemoglobin 7.6, hematocrit 22.9, platelet count 362,000. Chemistry obtained on 09/06/2016: Sodium 139, potassium 3.9, chloride 107, carbon dioxide 25, BUN 6, creatinine 0.97, glucose 173, calcium 8.0. IMPRESSION AND PLAN: 1. GROUP B STREPTOCOCCUS CELLULITIS OF THE WOUND. Continue antibiotic coverage. The patient's symptoms overall have improved. This can be transitioned to oral antibiotics for discharge to home. 2. HYPEROSMOLAR HYPERGLYCEMIC STATE, OVERALL MUCH IMPROVED. THIS WAS DUE TO UNCONTROLLED DIABETES MELLITUS, TYPE 2. Blood sugars were a little low this morning. Will continue current decreased dose of basal insulin. 3. HYPERTENSION. The patient has tolerated the LING well. 4. MORBID OBESITY. Will encourage weight reduction. 5. SEPSIS, PRESENT ON ADMISSION SECONDARY TO THE ABOVE. The patient's white count does remain elevated, but continues to trend down. 6. DEEP VENOUS THROMBOSIS PROPHYLAXIS. Will continue subcutaneous heparin. DISPOSITION: The patient is a FULL CODE. Pending patient's symptomatology and diagnostic findings, will re-evaluate in the a.m. for discharge. TIME SPENT ON THIS FOLLOWUP: Including assessment, plan, physical examination, patient education, and resource alignment is 25 minutes. DICTATING PHYSICIAN: FIDE MORALES NP [id number] PHY#: [id number] ID: [id number] JOB#: [id number] ACCT: [id number] cc: >
[2016-09-06] MEDS: INSULIN LISPRO 100 UNIT/ML 3 ML VIAL SUBCUT PRN (12:09)
[2016-09-06] MEDS: INSULIN GLARGINE,HUM.REC.ANLOG 300 UNIT/3 ML INSULN.PEN SUBCUT SCH (21:33)
[2016-09-07 04:28] LABS: ABSOLUTE BASOPHILS # (AUTO) 0.1 10^3/uL (0.0-0.2); ABSOLUTE EOSINOPHILS # (AUTO) 0.2 10^3/uL (0.0-0.6); ABSOLUTE LYMPHOCYTES (AUTO) 1.6 10^3/uL (0.5-4.7); ABSOLUTE MONOCYTES (AUTO) 0.9 10^3/uL (0.1-1.4); ABSOLUTE NEUT (AUTO) 8.4 10^3/uL (1.7-8.2); BASOPHILS % (AUTO) 0.6 % (0-2); EOSINOPHILS % (AUTO) 1.4 % (0-6); HEMATOCRIT 26.5 % (37.9-51.0); HEMOGLOBIN 8.9 g/dL (13.5-17.0); HGB HCT DIFFERENCE 0.2; LYMPHOCYTES % (AUTO) 14.5 % (13-45); MEAN CORPUSCULAR HEMOGLOBIN 29.5 pg (27.0-33.4); MEAN CORPUSCULAR HGB CONC 33.7 g/dL (32.0-36.0); MEAN CORPUSCULAR VOLUME 88 fl (80-97); MONOCYTES % (AUTO) 7.8 % (3-13); RED BLOOD COUNT 3.02 10^6/uL (4.35-5.55); RED CELL DISTRIBUTION WIDTH 16.1 % (11.5-14.0); SEGMENTED NEUTROPHILS % (AUTO) 75.7 % (42-78)
[2016-09-07 04:42] LABS: ANION GAP 5 (5-19); BLOOD UREA NITROGEN 6 mg/dL (7-20); CARBON DIOXIDE 25 mmol/L (22-30); CHLORIDE 111 mmol/L (98-107); CREATININE RESULT 0.97 mg/dL (0.52-1.25); GLUCOSE 128 mg/dL (75-110); POTASSIUM 4.3 mmol/L (3.6-5.0)
[2016-09-07] MEDS: PIPERACILLIN SODIUM/TAZOBACTAM 4.5 GM in NORMAL SALINE 100 ML IV SCH ×2 (06:00→12:44)
[2016-09-07] MEDS: METFORMIN HCL 500 MG TABLET PO SCH (08:15)
--- NOTE | 2016-09-07 09:09 | PROGRESS NOTE E ---
Progress Note NAME: XUAN BYERS : 1965 AGE: 51Y DATE: 09/07/2016 ROOM: 530 SUBJECTIVE: The patient is post debridement, around the fourth postop day. He also has a wound VAC. He looks very comfortable and the VAC is in place. His vital signs are stable. PLAN: Patient can be discharged and be followed up [facility]. Continue with the wound VAC at home. DICTATING PHYSICIAN: PAZ PENALOZA M.D. [id number] PHY#: [id number] ID: [id number] JOB#: [id number] ACCT: [id number] cc: >
--- NOTE | 2016-09-07 10:42 | DISCHARGE SUMMARY E ---
Discharge Summary NAME: XUAN BYERS : 1965 AGE: 51Y ADMITTED: 08/25/2016 DISCHARGED: 09/07/2016 CODE STATUS: FULL CODE. PRIMARY CARE PROVIDER: Yumiko Norton CONSULTING SURGICALIST: Dr. Steven DISCHARGE DIAGNOSES: Includes: 1. Group B Streptococcus cellulitis wound of the pannus. 2. Hyperosmolar hyperglycemic state. 3. Uncontrolled diabetes mellitus type 2, much improved. 4. Hypertension. 5. Morbid obesity. 6. Sepsis, present on admission secondary to the above, much improved. DISCHARGE MEDICATIONS: Include: 1. Augmentin 875/125 one tablet p.o. b.i.d., 20 tablets, 0 refills. 2. Lisinopril 10 mg p.o. daily, 30 tablets, 0 refills. 3. Metformin 1000 mg p.o. b.i.d., 60 tablets with 0 refills. 4. Lantus 20 units subcu q. hour of sleep. 5. I have written prescriptions for both the insulin pen as well as bottle in an effort to find the patient the most economical way of managing this disease. Prescriptions were also sent to the pharmacy for alcohol pads, pen tips versus syringes. DIET: Diabetic, heart healthy. ACTIVITY: As tolerated. DIAGNOSTICS: Lab values are as follows: Hematology obtained on 09/07/2016: WBC is 11.0, hemoglobin is 8.9, hematocrit is 26.5, platelet count is 412,000. Chemistry obtained on 09/07/2016: Sodium is 141, potassium 4.3, chloride is 111, carbon dioxide 25, BUN 6, creatinine is 0.97, glucose 128. A1C is greater than 14. Lactic acid is 1.6, calcium is 8.0, magnesium 2.1. Total bili is 1.4, AST 13, ALT is 20, Alk phos 87, total protein 5.9, albumin 2.7. Urinalysis obtained on 08/25/2016: Color yellow, appearance slightly cloudy. PH is 5.0, specific gravity is 1.025. Protein negative, glucose greater than 500, ketones 80, occult blood small, nitrate negative, bilirubin negative, urobilinogen is negative, leukocyte esterase is moderate. WBCs 21, RBCs 12, mucus rare, ascorbic acid is negative. Toxicology obtained on 08/29/2016: Vancomycin trough is less than 5. Microbiology: Blood cultures obtained on 08/25/2016 reveals no growth. Wound culture obtained on 08/27/[address]dominal CT scan obtained on 08/25/2016 reveals no significant or acute process of the abdomen and pelvis. Abdominal ultrasound obtained on 08/26/2016 reveals soft tissue mass, fluid collection, or foreign body. Chest x-ray obtained on 08/29/2016 reveals no significant radiographic finding of the chest. Abdominal, pelvis CT scan obtained on 08/30/2016 reveals irregular gas collection within the panniculus overlying the pelvis of the right mid as noted. There is changes in the adjacent subcutaneous fat. Drainage catheters were identified. There is no discrete fluid collection that is identified. There are no significant intra-abdominal or pelvic abnormalities identified. Chest x-ray obtained on 08/30/2016 reveals no significant radiographic finding of the chest. Pathology tissue specimen obtained on 09/03/2016 reveals skin with ulceration and acute inflammation. Soft tissue with microabscesses and fat necrosis is identified. No carcinoma is seen. EKG obtained on 08/25/2016 reveals sinus tachycardia with PVCs. HISTORY OF PRESENT ILLNESS: The patient is a 51-year-old -German male with a past medical history of diabetes mellitus type 2 that is very poorly controlled. The patient presented to the emergency department with a chief complaint of abdominal pain and constipation x1 week. The patient had an actively draining abscess of the right lower abdominal pannus. The patient had been putting hydrocortisone cream over there and covering it with a gauze. The patient states that the abscess had been present for about a week and it was where most of his pain was coming from. The patient went to his primary care provider's office and was instructed to come to the emergency department. The patient states that he takes metformin 500 mg x2 daily for his diabetes, admits that he is supposed to be on insulin, but does not like to take this. The patient thinks his last A1C was approximately a year ago. The patient says that he does take his hypertensive medication. On presentation to the emergency department, the patient was found to have a glucose of almost 500, potassium 4.6, sodium was 133. He did have a gap of 28, and the patient's A1C was greater than 14. Given these findings, he was referred to the hospitalist for admission and management. HOSPITAL COURSE: The patient was admitted to [facility]. The patient was aggressively hydrated, was placed on insulin drip. The patient's blood glucose did improve, gap closed, and the patient was transitioned over to subcu insulins for which the patient has had very reasonable glucose control at this point with simply metformin and Lantus and has not required much in the way of sliding scale coverage. Given the patient's wound on his pannus, he was seen and evaluated by Surgery, on the 08/25/2016, the patient did have some bedside debridement with minimal success. Therefore, the patient returned to the OR on 08/25/[address] Steven when large volume of what was described as "haystack" tissue was removed. The patient continued to have increasing white count and therefore the patient returned to the OR on 09/03/2016 for a second debridement, and at this time, does have a wound VAC in the place. The patient's symptoms continue to improve as the patient's white count, which started at 22.5, has trended down to 11,000. The patient has been transitioned over to oral Augmentin and the patient's glucoses are much better controlled. The patient's symptoms overall are much improved and the patient feels comfortable for discharge. The patient initially did want SNF placement; however, he did not have the insurance coverage to provide such. Therefore, the patient is agreeable to home health with wound care followup. It is recommended that the patient have a wound VAC continued at home as per Surgery. Therefore, this will be managed outpatient by the surgicalist, which the patient will follow up with. Time spent on this discharge including assessment, plan, physical examination, patient education, and resource alignment is 35 minutes. DICTATING PHYSICIAN: FIDE MORALES NP [id number] PHY#: [id number] ID: [id number] JOB#: [id number] ACCT: [id number] cc:VAMSHI MORALES NP > [facility]
[2016-09-07] MEDS: LISINOPRIL 10 MG TABLET PO SCH (11:16)
[2016-09-07] MEDS: HEPARIN SOD (PORCINE) 5,000 UNIT/ML 1 ML SYRINGE SUBCUT SCH (11:17)
[2016-09-07] MEDS: FLUCONAZOLE 200 MG/NS RTU 100 ML IV SCH (11:19)
[2016-09-07] MEDS: INSULIN LISPRO 100 UNIT/ML 3 ML VIAL SUBCUT PRN (12:23)
[2016-09-07 12:50] VITALS: BP 142/77
== END 2016-09-07 14:45 | disposition home health service (06) | DRG 853 ==
LOC: ER 07:10 → EH 09:16 → UNDOADMIN 09:24 → 3W 11:38 → 5 08-27 14:14
PROVIDERS: ADMIT Family Medicine; ATTEND Family Medicine
PROC: 0JB80ZZ Excision of Abdomen Subcutaneous Tissue and Fascia, Open Approach (ICD-10-PCS; principal; 2016-08-25)
PROC: 0JB80ZZ Excision of Abdomen Subcutaneous Tissue and Fascia, Open Approach (ICD-10-PCS; 2016-08-27)
PROC: 0JB80ZZ Excision of Abdomen Subcutaneous Tissue and Fascia, Open Approach (ICD-10-PCS; 2016-09-03)
DX: A41.9 Sepsis, unspecified organism (principal); E11.00 Type 2 diabetes mellitus with hyperosmolarity without nonketotic hyperglycemic-hyperosmolar coma (NKHHC); L03.319 Cellulitis of trunk, unspecified; Z68.42 Body mass index [BMI] 45.0-49.9, adult; B95.1 Streptococcus, group B, as the cause of diseases classified elsewhere; D64.9 Anemia, unspecified; I10 Essential (primary) hypertension; E78.5 Hyperlipidemia, unspecified; E66.01 Morbid (severe) obesity due to excess calories; Z79.84 Long term (current) use of oral hypoglycemic drugs; Z79.899 Other long term (current) drug therapy
CPT/HCPCS: 36415; 36430; 71020; 74176; 76705; 800; 80048; 80053; 80202; 81001; 82565; 82962; 830; 83036; 83605; 83735; 85025; 85027; 86850; 86900; 86901; 86920; 87015; 87040; 87070; 87075; 87077; 87086; 87101; 87116; 87186; 87205; 87206; 88304; 93005; 93010; 96365; 99291; J0131; J0295; J0330; J1100; J1170; J1450; J1644; J1650; J1741; J1815; J2250; J2270; J2405; J2543; J2704; J3010; J3370; J3490; J7030; J7040; J7060; P9016

== ENCOUNTER 2016-09-15 15:21 | Emergency (ER) | payer BC ==
--- NOTE | 2016-09-15 15:48 | ER Document Report ---
ED Medical Screen (RME) - General Chief Complaint: blood after changing wound vac Stated Complaint: BLOOD DRAINING FROM WOUND Time Seen by Provider: 09/15/16 15:41 Notes: Patient had hernia repair that was infected 2 weeks ago. Home care nurse came today to change the wound VAC for the second time since operation. Patient states he has been bleeding since the change was made today. I have greeted and performed a rapid initial assessment of this patient. A comprehensive ED assessment and evaluation of the patient, analysis of test results and completion of the medical decision making process will be conducted by additional ED providers. TRAVEL OUTSIDE OF THE [place] IN LAST 30 DAYS: No - Related Data Allergies/Adverse Reactions: No Known Allergies Allergy (Verified 08/25/16 07:17) Past Medical History - Social History Family history: Reviewed & Not Pertinent - Past Medical History Cardiac Medical History: Reports: Hx Hypercholesterolemia, Hx Hypertension Endocrine Medical History: Reports: Hx Diabetes Mellitus Type 2 - 500 mg of metformin Renal/ Medical History: Denies: Hx Peritoneal Dialysis Past Surgical History: Reports: Hx Orthopedic Surgery - bilat knee - Immunizations Hx Diphtheria, Pertussis, Tetanus Vaccination: Yes Physical Exam - Vital signs Vitals: Temp Pulse Resp BP Pulse Ox 98.9 F 113 H 19 117/71 99 09/15/16 15:23 09/15/16 15:23 09/15/16 15:23 09/15/16 15:23 09/15/16 15:23 Course - Vital Signs Vital signs: Temp Pulse Resp BP Pulse Ox 98.9 F 113 H 19 117/71 99 09/15/16 15:23 09/15/16 15:23 09/15/16 15:23 09/15/16 15:23 09/15/16 15:23
--- NOTE | 2016-09-15 16:12 | ER Document Report ---
ED Wound - General Chief Complaint: blood after changing wound vac Stated Complaint: BLOOD DRAINING FROM WOUND Time Seen by Provider: 09/15/16 15:41 Mode of Arrival: Ambulatory Information source: Patient TRAVEL OUTSIDE OF THE [place] IN LAST 30 DAYS: No - HPI Patient complains to provider of: Post surgical bleeding Occurred: This morning Onset/Duration: Sudden Quality of pain: No pain Notes: Patient is a 51-year-old male who presents to the emergency room with chronic nonhealing wounds to her lower abdomen from hernia repair, with a wound VAC in place 2 weeks, the home health nurse came out to the house today to change the dressings on the wound VAC and now there is a small amount of blood in the tubing to the wound fact that he is concerned about, he denies any fevers, no pain, follows at the wound care clinic with Dr. Steven - Related Data Allergies/Adverse Reactions: No Known Allergies Allergy (Verified 08/25/16 07:17) Past Medical History - General Information source: Patient - Social History Smoking Status: Never Smoker Chew tobacco use (# tins/day): No Frequency of alcohol use: None Drug Abuse: None Family History: None Patient has suicidal ideation: No Patient has homicidal ideation: No - Past Medical History Cardiac Medical History: Reports: Hx Hypercholesterolemia, Hx Hypertension Endocrine Medical History: Reports: Hx Diabetes Mellitus Type 2 - 500 mg of metformin Renal/ Medical History: Denies: Hx Peritoneal Dialysis Past Surgical History: Reports: Hx Orthopedic Surgery - bilat knee - Immunizations Hx Diphtheria, Pertussis, Tetanus Vaccination: Yes Review of Systems - Review of Systems Constitutional: No symptoms reported EENT: No symptoms reported Cardiovascular: No symptoms reported Respiratory: No symptoms reported Gastrointestinal: No symptoms reported Genitourinary: No symptoms reported Male Genitourinary: No symptoms reported Musculoskeletal: No symptoms reported Skin: See HPI Hematologic/Lymphatic: No symptoms reported Neurological/Psychological: No symptoms reported -: Yes All other systems reviewed and negative Physical Exam - Vital signs Vitals: Temp Pulse Resp BP Pulse Ox 98.9 F 113 H 19 117/71 99 09/15/16 15:23 09/15/16 15:23 09/15/16 15:23 09/15/16 15:23 09/15/16 15:23 - Notes Notes: - General General appearance: Appears well, Alert In distress: None - HEENT Head: Normocephalic, Atraumatic Eyes: Normal Conjunctiva: Normal Extraocular movements intact: Yes Eyelashes: Normal Pupils: PERRL - Respiratory Respiratory status: No respiratory distress - Cardiovascular Rhythm: Regular - Abdominal Inspection: - Back Back: Normal - Extremities General upper extremity: Normal inspection General lower extremity: Normal inspection - Neurological Neuro grossly intact: Yes Orientation: AAOx4 [place] Coma Scale Eye Opening: Spontaneous [place] Coma Scale Verbal: Oriented [place] Coma Scale Motor: Obeys Commands [place] Coma Scale Total: 15 - Psychological Associated symptoms: Normal affect, Normal mood - Skin Skin Temperature: Warm Skin Moisture: Dry Skin Color: Normal - Abdominal Inspection: Wounds - Patient with chronic appearing nonhealing wounds to the right lower abdomen, there is a wound VAC in place, there is no active drainage , there is a small amount of bright red blood noted in the wound VAC tubing but it does not appear as though there is any active extravasation of blood, Morbidly Obese Course - Re-evaluation Re-evalutation: 09/15/16 16:[address] Hermosillo, will come to Ed to see patient 09/15/16 18:03 Patient was seen and evaluated by Dr. Hermosillo who confirms that patient is safe to be discharged home, he has an appointment at the wound care clinic on Saturday for follow-up, patient was advised to return if any additional concerns, patient acknowledges understanding and agreement with this plan - Vital Signs Vital signs: Temp Pulse Resp BP Pulse Ox 98.9 F 110 H 16 110/72 100 09/15/16 17:08 09/15/16 17:08 09/15/16 17:08 09/15/16 17:08 09/15/16 17:08 Discharge - Discharge Clinical Impression: Visit for wound check Condition: Stable Disposition: HOME, SELF-CARE Instructions: Delayed Wound Closure ([facility]), Dressing Instructions for Open Wounds ([facility]) Additional Instructions: Follow up with your primary care provider and surgeon in one to 2 days. Return to the emergency room immediately if symptoms worsen or any additional concerns.
[2016-09-15 17:09] VITALS: BP 110/72
== END 2016-09-15 17:09 | disposition home or self-care (01) ==
LOC: ER 15:21
DX: T81.89XA Other complications of procedures, not elsewhere classified, initial encounter (principal); Z98.890 Other specified postprocedural states
CPT/HCPCS: 99283

== ENCOUNTER → 2016-09-21 | Outpatient (CLI) | payer BC ==
--- NOTE | 2016-09-21 11:05 | RADIOLOGY REPORT (SQ) ---
EXAM DESCRIPTION: CT ABD/PELVIS WITH IV ORAL COMPLETED DATE/TIME: 09/21/2016 10:03 am REASON FOR STUDY: DISRUPTION OF EXTERNAL OPERATION (SURGICAL) WOUND, NOT ELSEWHERE CLASSIFIED T81.31 XA DISRUPTION OF EXTERNAL OPERATION (SURGICAL) WOUND, COMPARISON: 09/07/2016, 08/25/2016 CT abdomen pelvis TECHNIQUE: CT scan of the abdomen and pelvis performed using helical scanning technique with dynamic intravenous contrast injection. No oral contrast. Images reviewed with lung, soft tissue, and bone windows. Reconstructed coronal and sagittal MPR images reviewed. Delayed images for evaluation of the urinary system also acquired. All images stored on PACS. All CT scanners at this facility use dose modulation, iterative reconstruction, and/or weight based d osing when appropriate to reduce radiation dose to as low as reasonably achievable (ALARA). [facility]: Dose Right [facility]: CareDose [facility]: Dose Right [facility]: Teradose 4D [facility]: Sympoz CONTRAST TYPE AND DOSE: contrast/concentration: Isovue 370.00 mg/ml; Total Contrast Delivered: 100.0 ml; Total Saline Delivered: 72.0 ml RENAL FUNCTION: Creatinine 0.97 RADIATION DOSE: Up-to-date CT equipment and radiation dose reduction techniques were employed. CTDIv ol: 25.9 - 30.3 mGy. DLP: 3184 mGy-cm.. LIMITATIONS: None. FINDINGS: Patient has a surgical wound along the inferior aspect of the anterior abdominal wall pann iculus, to the right of midline. Deep to the surgical wound, and air pocket in the panniculus fat is present, measuring 18 cm transverse by 5 cm AP x 10 cm craniocaudad. Along the superior aspect of t his air pocket, there is minimal inflammatory change in the panniculus fat without collections. LOWER CHEST: No significant findings. No nodules or infiltrates. LIVER: Normal size. No masses. No dilated ducts. SPLEEN: Normal size. No focal lesions. PANCREAS: No masses. No significant calcifications. No adjacent inflammation or peripancreatic fluid collections. Pancreatic duct not dilated. GALLBLADDER: No identified stones by CT criteria. No inflammatory changes to suggest cholecystitis. ADRENAL GLANDS: No significant masses or asymmetry. RIGHT KIDNEY AND URETER: No solid masses. No significant calcifications. No hydronephrosis or hyd roureter. LEFT KIDNEY AND URETER: No solid masses. No significant calcifications. No hydronephrosis or hydr oureter. AORTA AND VESSELS: No aneurysm. No dissection. Renal arteries, SMA, celiac without stenosis. RETROPERITONEUM: No retroperitoneal adenopathy, hemorrhage or masses. BOWEL AND PERITONEAL CAVITY: No masses or inflammatory changes. No free fluid or peritoneal masses. APPENDIX: Normal. PELVIS: No mass. No free fluid. Normal bladder. ABDOMINAL WALL: As above. No ventral hernia BONES: Advanced degenerative disc changes lower lumbar spine OTHER: No other significant finding. IMPRESSION: Incision along the inferior aspect of the right anterior abdominal wall panniculus, with the air in the wound as above. No fluid pocket worrisome for abscess. TECHNICAL DOCUMENTATION: JOB ID: [id number] Quality ID # [id number]: Final reports with documentation of one or more dose reduction techniques (e.g., Au tomated exposure control, adjustment of the mA and/or kV according to patient size, use of iterative reconstruction technique) 2010 [employer]- All Rights Reserved
== END ==
LOC: RAD 08:48
PROVIDERS: ATTEND Nurse Practitioner Family
DX: T81.31XA Disruption of external operation (surgical) wound, not elsewhere classified, initial encounter (principal)
CPT/HCPCS: 74177

== ENCOUNTER 2016-10-20 19:29 | Emergency (ER) | payer BC ==
--- NOTE | 2016-10-20 20:47 | ER Document Report ---
ED GI/ - General Chief Complaint: Constipation Stated Complaint: ABDOMINAL PAIN Time Seen by Provider: 10/20/16 20:30 Notes: Patient is a 51-year-old male who comes emergency department for chief complaint of difficulty with bowel movements. He states his belly "just does not feel right". He denies pain in his abdomen. He states that he feels like he needs to have a bowel movement but is not having one. He had a small one yesterday, nonbloody, not notably hard. He is status post bowel surgery with partial bowel resection secondary to infected hernia in August, follows with the wound clinic now. He denies fever, vomiting, flank pain, chest pain. PMH DMII, hyperlipidemia, hypertension, and takes aspirin. TRAVEL OUTSIDE OF THE [place] IN LAST 30 DAYS: No - Related Data Allergies/Adverse Reactions: No Known Allergies Allergy (Verified 10/20/16 19:37) Past Medical History - General Information source: Patient - Social History Smoking Status: Never Smoker Frequency of alcohol use: None Drug Abuse: None Lives with: Family Family History: None Patient has suicidal ideation: No Patient has homicidal ideation: No - Past Medical History Cardiac Medical History: Reports: Hx Hypercholesterolemia, Hx Hypertension Endocrine Medical History: Reports: Hx Diabetes Mellitus Type 2 - 500 mg of metformin Renal/ Medical History: Denies: Hx Peritoneal Dialysis Past Surgical History: Reports: Hx Orthopedic Surgery - bilat knee - Immunizations Hx Diphtheria, Pertussis, Tetanus Vaccination: Yes Review of Systems - Review of Systems Constitutional: No symptoms reported EENT: No symptoms reported Cardiovascular: No symptoms reported Respiratory: No symptoms reported Gastrointestinal: No symptoms reported Genitourinary: No symptoms reported Male Genitourinary: No symptoms reported Musculoskeletal: No symptoms reported Skin: No symptoms reported Hematologic/Lymphatic: No symptoms reported Neurological/Psychological: No symptoms reported Physical Exam - Vital signs Vitals: Temp Pulse Resp BP Pulse Ox 98.5 F 120 H 18 118/62 98 10/20/16 19:37 10/20/16 19:37 10/20/16 19:37 10/20/16 19:37 10/20/16 19:37 Interpretation: Normal - General General appearance: Appears well In distress: None - HEENT Head: Normocephalic, Atraumatic Eyes: Normal Pupils: PERRL - Respiratory Respiratory status: No respiratory distress Chest status: Nontender Breath sounds: Normal Chest palpation: Normal - Cardiovascular Rhythm: Regular, Tachycardia - Borderline Heart sounds: Normal auscultation, S1 appreciated, S2 appreciated Murmur: No - Abdominal Inspection: Other - Scarring of the lower abdomen with wound VAC in place Bowel sounds: Normal Tenderness: Nontender - Abdomen is benign and nontender with no guarding or rigidity. No: Tender, Guarding Organomegaly: No organomegaly - Back Back: Normal, Nontender. No: Tender, CVA tenderness - Extremities General upper extremity: Normal inspection, Nontender, Normal ROM, Normal strength General lower extremity: Normal inspection, Nontender, Normal ROM, Normal strength - Neurological Neuro grossly intact: Yes Cognition: Normal Orientation: AAOx4 Bimal Coma Scale Eye Opening: Spontaneous Hardy Coma Scale Verbal: Oriented Bimal Coma Scale Motor: Obeys Commands Hardy Coma Scale Total: 15 Speech: Normal Motor strength normal: LUE, RUE, LLE, RLE Sensory: Normal - Psychological Associated symptoms: Normal affect, Normal mood - Skin Skin Temperature: Warm Skin Moisture: Dry Skin Color: Normal Course - Re-evaluation Re-evalutation: CBC, chemistry unremarkable. Acute abdominal series does not show obstruction or any concerning abnormalities. It does show some retained stool. Patient's abdomen is soft and benign. He actually is not complaining of any abdominal pain. He states he just feels strange, like he needs to have a bowel movement. I performed a rectal exam, no masses, no impaction, no hemorrhoids, no abnormalities noted at all. Patient is very satisfied with this, he states he just wanted to be checked. Vital signs initially showed some tachycardia but this resolved and did not return and I did not give fluids. Patient well- appearing with normal heart rate on final evaluation. After discussion with patient he requests a pill stool softener, he was provided with this, discussed use, discussed follow-up. Patient has a wound care appointment in 2 days. Discussed return precautions, patient states understanding and agreement. - Vital Signs Vital signs: Temp Pulse Resp BP Pulse Ox 98.5 F 120 H 9 L 119/81 100 10/20/16 19:37 10/20/16 19:37 10/20/16 22:47 10/20/16 22:47 10/20/16 22:47 - Laboratory Result Diagrams: 10/20/16 21:40 10/20/16 21:40 Laboratory results interpreted by me: 10/20/16 10/20/16 21:40 21:40 RBC 3.79 L Hgb 11.0 L Hct 33.3 L RDW 17.6 H Glucose 167 H ALT 18 L Discharge - Discharge Clinical Impression: Abdominal pain Qualifiers: Abdominal location: generalized Qualified Code(s): R10.84 - Generalized abdominal pain Condition: Stable Disposition: HOME, SELF-CARE Additional Instructions: Your workup and examination did not show any concerning findings. You do have some retained stool, I recommend taking the stool softener prescribed for about 3 days. Increase fiber in diet, drink plenty of fluids. Follow-up with the wound clinic on Saturday as planned. Return to the emergency department for any concerning or worsening symptoms including fever, vomiting, bloody bowel movements, abdominal pain, or any other concerning symptoms. Prescriptions: Docusate Sodium [Colace 100 mg Capsule] 100 mg PO DAILY #30 capsule Referrals: LINNEA LEVY PA-C [Primary Care Provider] - Follow up as needed
--- NOTE | 2016-10-20 21:30 | RADIOLOGY REPORT (SQ) ---
EXAM DESCRIPTION: ACUTE ABDOMEN SERIES COMPLETED DATE/TIME: 10/20/2016 9:11 pm REASON FOR STUDY: difficulty having BM, abd surgery in August COMPARISON: None. NUMBER OF VIEWS: Five views. TECHNIQUE: Frontal chest, supine abdomen and upright/decubitus abdomen radiographic images acquired. LIMITATIONS: None. FINDINGS: CHEST: Lungs clear of infiltrates. FREE AIR: None. No abnormal gas collections. BOWEL GAS PATTERN: Nonobstructive pattern. No dilated loops or air fluid levels. CALCIFICATIONS: No suspicious calcifications. HARDWARE: None in the abdomen. SOFT TISSUES: No gross mass or suggestion of organomegaly. BONES: No acute fracture. No worrisome bone lesions. OTHER: No other significant finding. IMPRESSION: NO RADIOGRAPHIC EVIDENCE FOR ACUTE ABDOMINAL DISEASE. TECHNICAL DOCUMENTATION: JOB ID: [id number] [employer]- All Rights Reserved
[2016-10-20 21:58] LABS: ABSOLUTE BASOPHILS # (AUTO) 0.1 10^3/uL (0.0-0.2); ABSOLUTE EOSINOPHILS # (AUTO) 0.5 10^3/uL (0.0-0.6); ABSOLUTE LYMPHOCYTES (AUTO) 1.9 10^3/uL (0.5-4.7); ABSOLUTE MONOCYTES (AUTO) 0.6 10^3/uL (0.1-1.4); BASOPHILS % (AUTO) 0.7 % (0-2); HEMATOCRIT 33.3 % (37.9-51.0); HGB HCT DIFFERENCE -0.3; LYMPHOCYTES % (AUTO) 21.1 % (13-45); MEAN CORPUSCULAR HEMOGLOBIN 29.1 pg (27.0-33.4); MEAN CORPUSCULAR HGB CONC 33.1 g/dL (32.0-36.0); MEAN CORPUSCULAR VOLUME 88 fl (80-97); MONOCYTES % (AUTO) 6.5 % (3-13); RED BLOOD COUNT 3.79 10^6/uL (4.35-5.55); RED CELL DISTRIBUTION WIDTH 17.6 % (11.5-14.0); SEGMENTED NEUTROPHILS % (AUTO) 66.7 % (42-78); WHITE BLOOD COUNT 8.9 10^3/uL (4.0-10.5)
[2016-10-20 22:15] LABS: ALANINE AMINOTRANSFERASE 18 U/L (21-72); ALKALINE PHOSPHATASE 85 U/L (38-126); ANION GAP 12 (5-19); ASPARTATE AMINO TRANSFERASE 17 U/L (17-59); BILIRUBIN,DIRECT 0.3 mg/dL (0.0-0.4); BILIRUBIN,TOTAL 0.3 mg/dL (0.2-1.3); BLOOD UREA NITROGEN 17 mg/dL (7-20); CALCIUM 9.6 mg/dL (8.4-10.2); CARBON DIOXIDE 24 mmol/L (22-30); CHLORIDE 105 mmol/L (98-107); CREATININE RESULT 0.93 mg/dL (0.52-1.25); GLUCOSE 167 mg/dL (75-110); POTASSIUM 3.8 mmol/L (3.6-5.0); SODIUM 140.9 mmol/L (137-145); TOTAL PROTEIN 7.8 g/dL (6.3-8.2)
[2016-10-20] MEDS ORDERED: DOCUSATE SODIUM 100 MG CAPSULE PO ONE (22:31)
[2016-10-20 22:51] VITALS: BP 119/81
== END 2016-10-20 22:58 | disposition home or self-care (01) ==
LOC: ER 19:29
DX: R10.84 Generalized abdominal pain (principal); K59.00 Constipation, unspecified; E78.00 Pure hypercholesterolemia, unspecified; I10 Essential (primary) hypertension; E11.9 Type 2 diabetes mellitus without complications; Z79.4 Long term (current) use of insulin
CPT/HCPCS: 36415; 74022; 80053; 85025; 99284

== ENCOUNTER 2018-06-21 13:42 | Emergency (ER) | payer BC ==
--- NOTE | 2018-06-21 13:52 | ER Document Report ---
ED Medical Screen (RME) - General Chief Complaint: Abdominal Pain Stated Complaint: ABDOMINAL PAIN, LEFT SIDE Time Seen by Provider: 06/21/18 13:47 Primary Care Provider: LINNEA LEVY PA-C [Primary Care Provider] - Follow up as needed Mode of Arrival: Ambulatory Information source: Patient Notes: Patient is a 53-year-old male presenting to the emergency department with pain to the left upper quadrant that started which was 2 days ago. He denies any nausea, vomiting, diarrhea or fevers. He describes the pain as a sharp pain. He states he had a similar pain approximately 1 year ago, states that pain lasted 2 weeks he never got treatment and it self resolved. Patient reports the pain is also worse when he takes a deep breath. Denies any history of blood clots. Exam: Tenderness to palpation to left upper quadrant. I have greeted and performed a rapid initial assessment of this patient. A comprehensive ED assessment and evaluation of the patient, analysis of test results and completion of the medical decision making process will be conducted by additional ED providers. Dictation of this chart was performed using voice recognition software; therefore, there may be some unintended grammatical errors. TRAVEL OUTSIDE OF THE [place] IN LAST 30 DAYS: No - Related Data Allergies/Adverse Reactions: No Known Allergies Allergy (Verified 06/21/18 13:43) Past Medical History - Social History Family history: Reviewed & Not Pertinent - Past Medical History Cardiac Medical History: Reports: Hx Hypercholesterolemia, Hx Hypertension Endocrine Medical History: Reports: Hx Diabetes Mellitus Type 2 - 500 mg of metformin Renal/ Medical History: Denies: Hx Peritoneal Dialysis Past Surgical History: Reports: Hx Orthopedic Surgery - bilat knee - Immunizations Hx Diphtheria, Pertussis, Tetanus Vaccination: Yes Physical Exam - Vital signs Vitals: Temp Pulse Resp BP Pulse Ox 99.1 F 104 H 18 150/70 H 98 06/21/18 13:46 06/21/18 13:46 06/21/18 13:46 06/21/18 13:46 06/21/18 13:46 Course - Vital Signs Vital signs: Temp Pulse Resp BP Pulse Ox 99.1 F 104 H 18 150/70 H 98 06/21/18 13:46 06/21/18 13:46 06/21/18 13:46 06/21/18 13:46 06/21/18 13:46 Doctor's Discharge - Discharge Referrals: LINNEA LEVY PA-C [Primary Care Provider] - Follow up as needed
[2018-06-21 14:38] LABS: ABSOLUTE EOSINOPHILS # (AUTO) 0.2 10^3/uL (0.0-0.6); ABSOLUTE LYMPHOCYTES (AUTO) 2.3 10^3/uL (0.5-4.7); ABSOLUTE MONOCYTES (AUTO) 0.7 10^3/uL (0.1-1.4); ABSOLUTE NEUT (AUTO) 3.2 10^3/uL (1.7-8.2); BASOPHILS % (AUTO) 0.4 % (0-2); EOSINOPHILS % (AUTO) 3.4 % (0-6); HEMATOCRIT 42.4 % (37.9-51.0); HEMOGLOBIN 13.7 g/dL (13.5-17.0); LYMPHOCYTES % (AUTO) 36.3 % (13-45); MEAN CORPUSCULAR HEMOGLOBIN 30.1 pg (27.0-33.4); MEAN CORPUSCULAR HGB CONC 32.5 g/dL (32.0-36.0); MEAN CORPUSCULAR VOLUME 93 fl (80-97); MONOCYTES % (AUTO) 10.4 % (3-13); PLATELET COUNT 246 10^3/uL (150-450); RED BLOOD COUNT 4.57 10^6/uL (4.35-5.55); RED CELL DISTRIBUTION WIDTH 13.3 % (11.5-14.0); SEGMENTED NEUTROPHILS % (AUTO) 49.5 % (42-78); TOTAL CELLS COUNTED % (AUTO) 100 %; WHITE BLOOD COUNT 6.4 10^3/uL (4.0-10.5)
--- NOTE | 2018-06-21 14:46 | RADIOLOGY REPORT (SQ) ---
EXAM DESCRIPTION: CHEST 2 VIEWS COMPLETED DATE/TIME: 06/21/2018 2:38 pm REASON FOR STUDY: LUQ/L anterior rib pain COMPARISON: Chest films 10/20/2016, 08/30/2016 EXAM PARAMETERS: NUMBER OF VIEWS: two views TECHNIQUE: Digital Frontal and Lateral radiographic views of the chest acquired. RADIATION DOSE: NA LIMITATIONS: none FINDINGS: LUNGS AND PLEURA: No opacities, masses or pneumothorax. No pleural effusion. MEDIASTINUM AND HILAR STRUCTURES: No masses or contour abnormalities. HEART AND VASCULAR STRUCTURES: Heart normal size. No evidence for failure. BONES: No acute findings. HARDWARE: None in the chest. OTHER: No other significant finding. IMPRESSION: NO ACUTE RADIOGRAPHIC FINDING IN THE CHEST. TECHNICAL DOCUMENTATION: JOB ID: [id number] [employer]- All Rights Reserved Reading location - IP/workstation name: [email or web address]
[2018-06-21 14:49] LABS: ALANINE AMINOTRANSFERASE 30 U/L (21-72); ALBUMIN 4.3 g/dL (3.5-5.0); ALKALINE PHOSPHATASE 71 U/L (38-126); ANION GAP 12 (5-19); ASPARTATE AMINO TRANSFERASE 24 U/L (17-59); BILIRUBIN,DIRECT 0.2 mg/dL (0.0-0.4); BILIRUBIN,TOTAL 0.3 mg/dL (0.2-1.3); BLOOD UREA NITROGEN 21 mg/dL (7-20); CALCIUM 10.1 mg/dL (8.4-10.2); CARBON DIOXIDE 29 mmol/L (22-30); CHLORIDE 104 mmol/L (98-107); GLUCOSE 106 mg/dL (75-110); LIPASE 252.2 U/L (23-300); POTASSIUM 4.3 mmol/L (3.6-5.0); SODIUM 144.8 mmol/L (137-145)
[2018-06-21 15:10] LABS: APPEARANCE,URINE CLEAR; BILIRUBIN,URINE NEGATIVE (NEGATIVE); COLOR,URINE YELLOW; GLUCOSE, URINE >=500 mg/dL (NEGATIVE); KETONES,URINE NEGATIVE (NEGATIVE); LEUKOCYTE ESTERASE,URINE NEGATIVE (NEGATIVE); NITRITE,URINE NEGATIVE (NEGATIVE); PROTEIN,URINE NEGATIVE (NEGATIVE); URINE SPECIFIC GRAVITY 1.033; UROBILINOGEN,URINE NEGATIVE mg/dL (<2.0)
[2018-06-21] MEDS ORDERED: MAG HYDROX/AL HYDROX/SIMETH SUSP 30 ML UDCUP PO ONE (15:17)
[2018-06-21] MEDS ORDERED: LIDOCAINE 2% VISCOUS SOLN 20 ML UDCUP PO ONE (15:17)
--- NOTE | 2018-06-21 16:42 | ER Document Report ---
ED General - General Chief Complaint: Abdominal Pain Stated Complaint: ABDOMINAL PAIN, LEFT SIDE Time Seen by Provider: 06/21/18 13:47 Primary Care Provider: LINNEA LEVY PA-C [NO LOCAL MD] - Follow up as needed Mode of Arrival: Ambulatory TRAVEL OUTSIDE OF THE [place] IN LAST 30 DAYS: No - HPI Notes: Patient is a 53-year-old male who presents to the emergency department for evaluation of left upper quadrant pain. Is been present for the last several d ays. He states he had a similar episode last year, but it went away on its own. He states he denies anything that makes it better or worse. He denies any fever or chills. No coughing. No shortness of breath. No melena or hematochezia. Having normal bowel movements. He states he tried some Tums with minimal relief. - Related Data Allergies/Adverse Reactions: No Known Allergies Allergy (Verified 06/21/18 13:43) Past Medical History - General Information source: Patient - Social History Smoking Status: Never Smoker Chew tobacco use (# tins/day): No Frequency of alcohol use: None Drug Abuse: None Family History: None, DM, Hypertension Patient has suicidal ideation: No Patient has homicidal ideation: No - Past Medical History Cardiac Medical History: Reports: Hx Hypercholesterolemia, Hx Hypertension Endocrine Medical History: Reports: Hx Diabetes Mellitus Type 2 - 500 mg of metformin Renal/ Medical History: Denies: Hx Peritoneal Dialysis Past Surgical History: Reports: Hx Orthopedic Surgery - bilat knee - Immunizations Hx Diphtheria, Pertussis, Tetanus Vaccination: Yes Review of Systems - Review of Systems Constitutional: No symptoms reported EENT: No symptoms reported Cardiovascular: No symptoms reported Respiratory: No symptoms reported Gastrointestinal: See HPI Genitourinary: No symptoms reported Musculoskeletal: No symptoms reported Skin: No symptoms reported Neurological/Psychological: No symptoms reported Physical Exam - Vital signs Vitals: Temp Pulse Resp BP Pulse Ox 99.1 F 104 H 18 150/70 H 98 06/21/18 13:46 06/21/18 13:46 06/21/18 13:46 06/21/18 13:46 06/21/18 13:46 - Notes Notes: Vital signs reviewed, please refer to chart. Head is normocephalic, atraumatic. Pupils equal round, reactive to light. Neck is supple without meningismus. Heart is regular rate and rhythm. Lungs are clear to auscultation bilaterally. Abdomen is soft, moderate left upper quadrant tenderness without rebound or guarding, normoactive bowel sounds throughout. Extremities without cyanosis, clubbing. Posterior calves are nontender. Peripheral pulses are equal. Skin is warm and dry. Patient is awake, alert, neurological exam is nonfocal. Course - Re-evaluation Re-evalutation: 06/21/18 16:39 Patient presents emergency department for evaluation. He has left upper quadrant pain. His exam is tender but nonsurgical. Laboratory investigations are largely unremarkable. To me this pain seems more likely to be GI. His pain went from a 5 out of 5 to a 1 out of 5 after a GI cocktail. I will go ahead and start him on a PPI. He is to follow-up with primary care, return to the emergency department with worsening or new concerning symptoms. - Vital Signs Vital signs: Temp Pulse Resp BP Pulse Ox 99.1 F 104 H 18 150/70 H 98 06/21/18 13:46 06/21/18 13:46 06/21/18 13:46 06/21/18 13:46 06/21/18 13:46 - Laboratory Result Diagrams: 06/21/18 14:03 06/21/18 14:03 Laboratory results interpreted by me: 06/21/18 06/21/18 14:03 14:03 BUN 21 H Creatinine 1.62 H Est GFR ( Amer) 54 L Est GFR (Non-Af Amer) 45 L Urine Glucose (UA) >=500 H - Diagnostic Test Radiology reviewed: Reports reviewed Radiology results interpreted by me: 06/21/18 16:40 Chest X-Ray 06/21/18 13:52 IMPRESSION: NO ACUTE RADIOGRAPHIC FINDING IN THE CHEST. Discharge - Discharge Clinical Impression: Gastritis Condition: Stable Disposition: HOME, SELF-CARE Instructions: Abdominal Pain ([facility]), Gastritis ([facility]) Additional Instructions: Take medication as prescribed. Follow-up with your primary care physician next week. Return to the emergency department with worsening or new concerning symptoms. Referrals: LINNEA LEVY PA-C [NO LOCAL MD] - Follow up as needed
[2018-06-21 16:54] VITALS: BP 126/67
== END 2018-06-21 16:54 | disposition home or self-care (01) ==
LOC: ER 13:42
DX: K29.70 Gastritis, unspecified, without bleeding (principal); R10.9 Unspecified abdominal pain; R10.12 Left upper quadrant pain; I10 Essential (primary) hypertension; E11.9 Type 2 diabetes mellitus without complications; Z79.84 Long term (current) use of oral hypoglycemic drugs
CPT/HCPCS: 99284; 36415; 83690; 85025; 80053; 81001; 71046; J3490